=== PATIENT | male | born 1950 | race Caucasian/White ===

== ENCOUNTER 2021-02-18 09:54 | Inpatient (IN) ==
[2021-02-18] MEDS ORDERED: SODIUM CHLORIDE 0.9% 500 ML IV STA (10:45)
[2021-02-18] MEDS ORDERED: Heparin IV Adult Wt-Based Standard WITH Bolus Protocol IV STA (10:51)
--- NOTE | 2021-02-18 11:28 | XRay Report ---
XR chest 1V portable HISTORY: 70 years-old Male Chest Pain acute atypical chest pain COMPARISON: None TECHNIQUE: AP view of the chest FINDINGS: Cardiac silhouette is moderately enlarged. Asymmetric right hilar prominence. Tracheostomy cannula ov erlies the midline. Right IJ dual-lumen the thousand catheter distal tip terminates within the region of the mid to inferior SVC. Small pleural effusions. No pneumothorax. Mild left lung base opacities. Right lung base densities suggest atelectasis. Degenerative changes of the shoulders and spine. IMPRESSION: 1. Small pleural effusions with left lung base opacities suggestive of atelectasis versus pneumonia. 2. Cardiomegaly. 3. Asymmetric right hilar prominence, likely from pulmonary vasculature. 4. Right IJ dual-lumen hemodialysis catheter distal tip terminates in the region of the mid to inferi or SVC. ACT 112: Negative or not required by law. The above report was generated using voice recognition software. It may contain grammatical, syntax o r spelling errors. Electronically signed by: Rashawn Pedro M.D. 02/18/2021 11:27 AM
--- NOTE | 2021-02-18 12:06 | Emergency Department Note ---
History of Present Illness General Chief complaint: Swelling/Edema to Extremity Time Seen by Provider: 02/18/21 10:13 Source: patient Mode of arrival: EMS Limitations: no limitations History of Present Illness Provider complaint: Need for anticoagulation/DVT Maximum Pain Intensity: 5 This is a 70-year-old male who presents to the ED with a chief complaint of a DVT in the right lower extremity and need for anticoagulation. The patient was received by [facility] yesterday. The patient had ultrasound yesterday of his right leg and right arm that showed DVT today. Kendall Brock, the patient's doctor at [facility] recommended that the patient come to the ED to be admitted for IV heparinization and Coumadin treatment. The patient is a dialysis patient and he reports that there are no good studies to show that NOACs can be used in these patients. The patient has no specific complaints at this time. Home Medications Medication Instructions Recorded Confirmed Type amiodarone 100 mg FEEDING TUBE Q12H 02/18/21 02/18/21 History apixaban 2.5 mg PO BID 02/18/21 02/18/21 History aspirin 81 mg FEEDING TUBE DAILY 02/18/21 02/18/21 History atorvastatin [Lipitor] 10 mg FEEDING TUBE HS 02/18/21 02/18/21 History cholecalciferol (vitamin D3) 50 mcg FEEDING TUBE DAILY 02/18/21 02/18/21 History [Vitamin D3] diclofenac sodium 2 g TOPICAL TID 02/18/21 02/18/21 History docusate sodium 100 mg FEEDING TUBE BID 02/18/21 02/18/21 History heparin (porcine) 5,000 unit SUBCUT Q12H 02/18/21 02/18/21 History hydrocodone-acetaminophen 1 tab FEEDING TUBE BID PRN 02/18/21 02/18/21 History ipratropium-albuterol 3 ml INHALATION Q6H PRN 02/18/21 02/18/21 History ipratropium-albuterol [Combivent 1 puff INHALATION QID 02/18/21 02/18/21 History Respimat] omeprazole magnesium [Prilosec] 40 mg FEEDING TUBE BID 02/18/21 02/18/21 History pediatric multivitamin [Multiple 1 tab FEEDING TUBE DAILY 02/18/21 02/18/21 History Vitamins] sevelamer carbonate 2.4 g FEEDING TUBE TIDM 02/18/21 02/18/21 History Allergies Allergy/AdvReac Type Severity Reaction Status Date / Time levofloxacin [From Levaquin] Allergy Unknown can't Unverified 02/18/21 10:22 breath/swelling Past Med/Surg History Medical History (Updated 02/18/21 @ 13:12 by Andi Garcia DO) DVT (deep venous thrombosis) Social History Smoking Status: Unknown if ever smoked Preferred Language: Monegasque Feels Safe at Home: Yes Review of Systems A total of 10 systems reviewed and were otherwise negative Physical Exam Vital Signs Vital Signs - 24 hr 02/18/21 10:14 02/18/21 11:18 02/18/21 12:05 Temperature 36.7 C Temperature Source Oral Pulse Rate 92 H Pulse Rate [Apical] 94 H Respiratory Rate 18 22 Blood Pressure 137/50 L Blood Pressure [Left Calf] 107/60 Blood Pressure Mean 79 Blood Pressure Mean [Left Calf] 75 Pulse Oximetry 100 98 97 Oxygen Delivery Method Nasal Cannula Room Air Nasal Cannula Oxygen Flow Rate 3 3 Sepsis Recent Fever Within 48 Hours No Sepsis New/Unexplained Change in Mental Status N/A Sepsis Action Taken by Nursing No Action Required CONSTITUTIONAL/VITAL SIGNS: Reviewed / noted above. GENERAL: Non-toxic in appearance. Chronically ill-appearing. INTEGUMENTARY: Warm, dry, and [place]. HEAD: Normocephalic. EYES: without scleral icterus or trauma. ENT/OROPHARYNX: clear and moist. Tracheostomy. LYMPHADENOPATHY/NECK: Is supple without lymphadenopathy or meningismus. RESPIRATORY: Lungs diminished bilaterally.. CARDIOVASCULAR: Regular rate and rhythm. GI/ABDOMEN: Soft and nontender. Feeding tube. EXTREMITIES: Warm and well perfused. NEUROLOGICAL: Intact. Generalized weakness. PSYCHIATRIC: normal affect. MUSCULOSKELETAL: Chronically ill-appearing. Generalized weakness. TRIAGE NURSING DOCUMENTATION REVIEWED. Course Administered Medications Discontinued Medications Sodium Chloride (Nss) 500 mls @ 999 mls/hr IV .Q31M STA Stop: 02/18/21 11:15 Last Admin: 02/18/21 12:19 Dose: 999 mls/hr Documented by: [id number] Medical Decision Making Differential Diagnosis Differential includes acute coronary syndrome, myocardial infarction, CVA, TIA, anemia, infection, pneumonia, UTI, pyelonephritis, poor nutrition, dehydration, electrolyte disturbance,hypoglycemia. Medical Records Attestation: I reviewed the patient's medical records. Home Medications Current Medication List: was personally reviewed by me Laboratory Data Attestation: I reviewed the patient's lab results. Result diagrams: 02/18/21 12:12 02/18/21 12:12 Lab Results 02/18/21 02/18/21 02/18/21 Range/Units 12:12 12:12 12:12 WBC 11.85 H (4.8-10.8) K/uL RBC 2.92 L (4.7-6.1) M/uL Hgb 8.1 L (14.0-18.0) g/dL Hct 27.3 L (42-52) % MCV 93.5 (80-100) fL MCH 27.7 (25-34) pg MCHC 29.7 L (32-36) g/dL RDW Std Deviation 59.7 H (36.4-46.3) fL RDW Coeff of Aysha 17.7 H (11.5-14.5) % Plt Count 386 (130-400) K/uL MPV 8.4 (7.4-10.4) fL Immature Gran % (Auto) 0.3 % Neut % (Auto) 60.8 % Lymph % (Auto) 27.5 % [place] % (Auto) 6.5 % Eos % (Auto) 4.6 % Baso % (Auto) 0.3 % Neut # (Auto) 7.20 H (1.4-6.5) K/uL Lymph # (Auto) 3.26 (1.2-3.4) K/uL [place] # (Auto) 0.77 H (0.11-0.59) K/uL Eos # (Auto) 0.54 H (0-0.5) K/uL Baso # (Auto) 0.04 (0-0.2) K/uL Immature Gran # (Auto) 0.04 H (0.00-0.02) K/uL PT 10.2 (9.0-12.0) Seconds INR 1.0 (0.9-1.1) APTT PTT Ratio Sodium 131 L (136-145) mmol/L Potassium 4.9 (3.5-5.1) mmol/L Chloride 95 L (98-107) mmol/L Carbon Dioxide 30 (21-32) mmol/L Anion Gap 6.0 (3-11) BUN 66 H (7-18) mg/dl Creatinine 7.39 H* (0.6-1.4) mg/dl Est Cr Clr Drug Dosing 13.0 ml/min Est GFR ( Amer) 7.9 Est GFR (Non-Af Amer) 6.9 BUN/Creatinine Ratio 8.8 L (10-20) Glucose 102 H (70-99) mg/dl Calcium 10.8 H (8.5-10.1) mg/dl Total Bilirubin 0.4 (0.2-1) mg/dl AST 17 (15-37) U/L ALT 29 (12-78) U/L Alkaline Phosphatase 115 (45-117) U/L Total Protein 7.9 (6.4-8.2) gm/dl Albumin 3.3 L (3.4-5.0) gm/dl Globulin 4.6 H (2.5-4.0) gm/dl Albumin/Globulin Ratio 0.7 L (0.9-2) COVID-19 Eval Order 02/18/21 02/18/21 Range/Units 12:12 12:15 WBC (4.8-10.8) K/uL RBC (4.7-6.1) M/uL Hgb (14.0-18.0) g/dL Hct (42-52) % MCV (80-100) fL MCH (25-34) pg MCHC (32-36) g/dL RDW Std Deviation (36.4-46.3) fL RDW Coeff of Aysha (11.5-14.5) % Plt Count (130-400) K/uL MPV (7.4-10.4) fL Immature Gran % (Auto) % Neut % (Auto) % Lymph % (Auto) % [place] % (Auto) % Eos % (Auto) % Baso % (Auto) % Neut # (Auto) (1.4-6.5) K/uL Lymph # (Auto) (1.2-3.4) K/uL [place] # (Auto) (0.11-0.59) K/uL Eos # (Auto) (0-0.5) K/uL Baso # (Auto) (0-0.2) K/uL Immature Gran # (Auto) (0.00-0.02) K/uL PT (9.0-12.0) Seconds INR (0.9-1.1) APTT Cancelled PTT Ratio Cancelled Sodium (136-145) mmol/L Potassium (3.5-5.1) mmol/L Chloride (98-107) mmol/L Carbon Dioxide (21-32) mmol/L Anion Gap (3-11) BUN (7-18) mg/dl Creatinine (0.6-1.4) mg/dl Est Cr Clr Drug Dosing ml/min Est GFR ( Amer) Est GFR (Non-Af Amer) BUN/Creatinine Ratio (10-20) Glucose (70-99) mg/dl Calcium (8.5-10.1) mg/dl Total Bilirubin (0.2-1) mg/dl AST (15-37) U/L ALT (12-78) U/L Alkaline Phosphatase (45-117) U/L Total Protein (6.4-8.2) gm/dl Albumin (3.4-5.0) gm/dl Globulin (2.5-4.0) gm/dl Albumin/Globulin Ratio (0.9-2) COVID-19 Eval Order CovFluRsv at [facility] Imaging Data Radiologist's Impression: XR chest 1V portable HISTORY: 70 years-old Male Chest Pain acute atypical chest pain COMPARISON: None TECHNIQUE: AP view of the chest FINDINGS: Cardiac silhouette is moderately enlarged. Asymmetric right hilar prominence. Tracheostomy cannula overlies the midline. Right IJ dual-lumen the thousand catheter distal tip terminates within the region of the mid to inferior SVC. Small pleural effusions. No pneumothorax. Mild left lung base opacities. Right lung base densities suggest atelectasis. Degenerative changes of the shoulders and spine. IMPRESSION: 1. Small pleural effusions with left lung base opacities suggestive of atelectasis versus pneumonia. 2. Cardiomegaly. 3. Asymmetric right hilar prominence, likely from pulmonary vasculature. 4. Right IJ dual-lumen hemodialysis catheter distal tip terminates in the region of the mid to inferior SVC. ECG Data Attestation: I personally reviewed and interpreted this ECG as follows: Indication: + chest pain Rate (beats per minute): 92 Rhythm: + normal sinus ECG Intervals/blocks: + Normal QT-c ECG ST segments: no ST elevation ECG Findings: + PVCs MDM Narrative Patient presents from [facility] facility for anticoagulation as he has a DVT in the right leg and right arm. Because he is on dialysis, he was sent here for anticoagulation with heparin and Coumadin. EKG shows normal sinus rhythm. Chest x-ray reveals small bilateral pleural effusions with atelectasis/consolidations. Clinically I doubt acute pneumonia. Anemia is noted on his blood count. Likely related to his chronic renal failure EKG showed a normal sinus rhythm. The patient will be seen by the hospitalist for further anticoagulation. He was started with IV heparin. He was also given some IV fluids. Impression & Plan DVT (deep venous thrombosis) Discharge Plan Visit Data Chief Complaint: Swelling/Edema to Extremity ED Provider: Andi Garcia Discharge Problem: DVT (deep venous thrombosis) Patient Disposition: Being Evaluated by Hospitalist Forms Stand Alone Forms: [facility] Prescriptions Prescriptions: No Action docusate sodium 50 mg/5 mL Liquid 100 mg feeding tube BID RF: 0 ipratropium-albuterol 0.5 mg-3 mg(2.5 mg base)/3 mL Solution For Nebulization 3 ml INHALATION Q6H PRN (Reason: Shortness Of Breath) RF: 0 atorvastatin [Lipitor] 10 mg Tablet 10 mg feeding tube HS RF: 0 hydrocodone-acetaminophen 5-325 mg Tablet 1 tab feeding tube BID PRN (Reason: pain 4-10) RF: 0 Multiple Vitamins Tablet,Chewable 1 tab feeding tube DAILY RF: 0 aspirin 81 mg Tablet,Chewable 81 mg feeding tube DAILY RF: 0 heparin (porcine) 5,000 unit/mL Solution 5,000 unit SUBCUT Q12H RF: 0 amiodarone 100 mg Tablet 100 mg feeding tube Q12H RF: 0 cholecalciferol (vitamin D3) [Vitamin D3] 25 mcg (1,000 unit) Tablet 50 mcg feeding tube DAILY RF: 0 diclofenac sodium 1 % Gel 2 g TOPICAL TID RF: 0 Prilosec 2.5 mg Susp,Delayed Release For Recon 40 mg feeding tube BID RF: 0 sevelamer carbonate 0.8 gram Powder In Packet 2.4 g feeding tube TIDM RF: 0 apixaban 2.5 mg Tablet 2.5 mg PO BID RF: 0 Combivent Respimat 20-100 mcg/actuation Mist 1 puff INHALATION QID RF: 0 Referrals Referrals: [facility] [Primary Care Provider] -
[2021-02-18 12:22] LABS: Basophils # (auto) 0.04 K/uL (0-0.2); Basophils % (auto) 0.3 %; Eosinophils # (auto) 0.54 K/uL (0-0.5); Eosinophils % (auto) 4.6 %; Hematocrit (blood only) 27.3 % (42-52); Hemoglobin 8.1 g/dL (14.0-18.0); Immature Granulocytes # (auto) 0.04 K/uL (0.00-0.02); Immature Granulocytes % (auto) 0.3 %; Lymphocytes # (auto) 3.26 K/uL (1.2-3.4); Lymphocytes % (auto) 27.5 %; Mean Corpuscular Hemoglobin 27.7 pg (25-34); Mean Corpuscular Hgb Conc 29.7 g/dL (32-36); Mean Corpuscular Volume 93.5 fL (80-100); Mean Platelet Volume 8.4 fL (7.4-10.4); Monocytes # (auto) 0.77 K/uL (0.11-0.59); Monocytes % (auto) 6.5 %; Neutrophils % (auto) 60.8 %; Platelet Count 386 K/uL (130-400); RDW Coefficient of Variation 17.7 % (11.5-14.5); RDW Standard Deviation 59.7 fL (36.4-46.3); Red Blood Count 2.92 M/uL (4.7-6.1); White Blood Count 11.85 K/uL (4.8-10.8)
[2021-02-18 12:39] LABS: Prothrombin Time 10.2 Seconds (9.0-12.0)
[2021-02-18 12:50] LABS: Albumin Globulin Ratio 0.7 (0.9-2); Albumin Level 3.3 gm/dl (3.4-5.0); BUN Creatinine Ratio 8.8 (10-20); Bilirubin,Total 0.4 mg/dl (0.2-1); Calcium 10.8 mg/dl (8.5-10.1); Est GFR (African American) 7.9; Est GFR (Non-African American) 6.9; Globulin 4.6 gm/dl (2.5-4.0); Potassium 4.9 mmol/L (3.5-5.1); Total Protein 7.9 gm/dl (6.4-8.2)
--- NOTE | 2021-02-18 12:54 | History & Physical Report ---
Date of Service February 18, 2021 Assessment & Plan (1) DVT (deep venous thrombosis): As per HPI - Will confirm right lower extremity DVT with venous duplex - Patient reportedly had drop in HGB/HCT with Coumadin requiring transfusions and unable to verify if cause was identified, he was then on Apixaban 2.5 BID with ESRD on dialysis with new acute DVT found at [facility]. - Heparin drip with bolus Will confirm as above and should discuss case with Dr. Houser for best evidence and treatment options. (2) Weakness: Chronic following ICU admission in Nov. continue rehab - PT/OT consults placed - Continue nutritional support for muscle building - rehab and muscle strengthening Patient is able to tolerate pureed diet and will need supplementation for calories and protein through his G-tube. Nutrition consulted. Appreciate their assistance. (3) Renal failure, chronic: BUN 66, BACK HAND 7.39 today - Patient at [facility] quality engineering manager are following him there per case management- Consulted (4) Morbid obesity: - Continue supportive efforts - Tracheostomy already in place - Will need to get to strengthening point before pushing rehab for weight management (5) COPD (chronic obstructive pulmonary disease): Continue home Combivent nebs/inhalers - On 3 LNC chronic - Goal 88-92% spo2 (6) JORDAN treated with BiPAP: Settings unable to verify- obese, tracheostomy, - titrate with respiratory therapy support - Auto-pap may support while in house if unable to dial in settings (7) Hypertension: Controlled (8) Afib: Currently in NSR on Amiodarone - Rate controlled - No acute needs History of Present Illness Chief Complaint: DVT right lower extremity. Primary Care Provider: Amina [facility] 70 YOM with past medical history significant for morbid obesity, COPD, Pulmonary HTN, afib, GERD, myopathy, respiratory failure requiring a tracheostomy, MRSA pneumonia. Patient went to [facility] around November for COPD exacerbation which was diagnosed as MRSA pneumonia. He subsequently went into respiratory failure and was intubated. He also ended up in oliguric renal failure. He was transferred to [facility] rehab in [place]. He now has a tunneled right subclavian dialysis catheter and a 6.0 cuffless tracheostomy with a 4.0 insert for downsizing. He also had a right upper extremity DVT and was placed on Coumadin, he had drops in his hemoglobin requiring transfusions (unclear if source was identified) and his Coumadin was stopped. He was then placed on 2.5 mg PO BID of Apixaban. On Tuesday he was transferred to [facility]. On the the patient had a duplex study performed by [facility], that showed a right leg acute occlusive DVT of the proximal femoral vein was found and the right upper extremity DVT was negative. He was sent over to the [facility] by his PCP for admission and transition of oral anticoagulation to Coumadin via heparin drip. The hospitalist team was notified for admission. Heparin drip with bolus was started in the [facility]. He was dialyzed on Tuesday prior to going to [facility]. Awaiting call back from [facility] data manager on dialysis team. He is normovolemic appearing, hemodynamically stable, and alert and appropriate. Allergies Allergy/AdvReac Type Severity Reaction Status Date / Time levofloxacin [From Levaquin] Allergy Unknown can't Unverified 02/18/21 10:22 breath/swelling Home Medications Medication Instructions Recorded Confirmed Type amiodarone 100 mg FEEDING TUBE Q12H 02/18/21 02/18/21 History apixaban 2.5 mg PO BID 02/18/21 02/18/21 History aspirin 81 mg FEEDING TUBE DAILY 02/18/21 02/18/21 History atorvastatin [Lipitor] 10 mg FEEDING TUBE HS 02/18/21 02/18/21 History cholecalciferol (vitamin D3) 50 mcg FEEDING TUBE DAILY 02/18/21 02/18/21 History [Vitamin D3] diclofenac sodium 2 g TOPICAL TID 02/18/21 02/18/21 History docusate sodium 100 mg FEEDING TUBE BID 02/18/21 02/18/21 History heparin (porcine) 5,000 unit SUBCUT Q12H 02/18/21 02/18/21 History hydrocodone-acetaminophen 1 tab FEEDING TUBE BID PRN 02/18/21 02/18/21 History ipratropium-albuterol 3 ml INHALATION Q6H PRN 02/18/21 02/18/21 History ipratropium-albuterol [Combivent 1 puff INHALATION QID 02/18/21 02/18/21 History Respimat] omeprazole magnesium [Prilosec] 40 mg FEEDING TUBE BID 02/18/21 02/18/21 History pediatric multivitamin [Multiple 1 tab FEEDING TUBE DAILY 02/18/21 02/18/21 History Vitamins] sevelamer carbonate 2.4 g FEEDING TUBE TIDM 02/18/21 02/18/21 History Past Med/Surg History Medical History (Updated 02/18/21 @ 13:41 by SHANE Martínez) Afib COPD (chronic obstructive pulmonary disease) DVT (deep venous thrombosis) Hypertension Morbid obesity JORDAN treated with BiPAP Pulmonary hypertension Renal failure, chronic Weakness Social History Smoking Status: Former smoker Smoking End Date: 30 years ago; Hx Alcohol Use: No Preferred Language: Kinyarwanda Beliefs That Will Affect Care: None Current Living Situation: Other Other Information That Helps Us Care for You: No Feels Safe at Home: Yes Assistive Devices: Oxygen - Continuous Review of Systems Review of Systems: REVIEW OF SYSTEMS: Constitutional: No fever, sweats or chills Eyes: No diplopia, no worsening or blurred vision ENT: normal hearing, no trouble swallowing Respiratory: No cough, sputum, dyspnea on exertion Cardiovascular: No chest pain, tightness or palpitations Abdomen: No pain, nausea, vomiting, diarrhea or constipation Musculoskeletal: No joint pain, calf pain, swelling Neurologic: (+) weakness, balance problems, (-) numbness/tingling. Psychiatric: No anxiety or depression Skin: Venous discoloration to bilateral lower extremities Physical Exam Physical Exam: PHYSICAL EXAM: General: awake, alert, no apparent distress Head: Normocephalic, atraumatic ENT: PERRL, EOMI, no pharyngeal exudate, mucous membranes moist Neuro: AAO x 3, speech clear and appropriate, strength intact bilaterally 5/5 uppers, 4/5 lower extremities, sensation intact and equal all extremities and dermatomes, no pronator drift Chest: equal rise and fall of the chest, no accessory muscle use, no heaves or thrills, Clear to auscultation, on room air, Cardiac: Regular rate and rhythm, telemetry reviewed, skin warm dry, cap refill <3 seconds, peripheral pules +2 no JVD, no murmur, no JVD, no edema GI: NABS x 4 quadrants, soft, nontender to palpation, no rebound, guarding or tenderness, Gtube in place : Makes "rare occasional" urine, no pain, no CVA tenderness Extremities: Normal inspection, (+) 2 edema, venous discoloration, calfs nontender to palpation Psych: Normal mood and affect Skin: insertion sites of rt SCL and left G tube intact. Results & Data Results & Data ([facility]) Vital Signs (Past 12 Hours) Vital Signs Temp Pulse Pulse Resp BP BP Pulse Ox 02/18/21 12:05 94 H 22 107/60 97 02/18/21 11:18 98 02/18/21 10:14 36.7 C 92 H 18 137/50 L 100 Laboratory Results Abnormal lab results 02/18/21 02/18/21 02/18/21 Range/Units 12:12 12:12 12:12 WBC 11.85 H (4.8-10.8) K/uL RBC 2.92 L (4.7-6.1) M/uL Hgb 8.1 L (14.0-18.0) g/dL Hct 27.3 L (42-52) % MCHC 29.7 L (32-36) g/dL RDW Std Deviation 59.7 H (36.4-46.3) fL RDW Coeff of Aysha 17.7 H (11.5-14.5) % Neut # (Auto) 7.20 H (1.4-6.5) K/uL Eagle # (Auto) 0.77 H (0.11-0.59) K/uL Eos # (Auto) 0.54 H (0-0.5) K/uL Immature Gran # (Auto) 0.04 H (0.00-0.02) K/uL APTT < 20.0 L (21.0-31.0) Seconds Sodium 131 L (136-145) mmol/L Chloride 95 L (98-107) mmol/L BUN 66 H (7-18) mg/dl Creatinine 7.39 H* (0.6-1.4) mg/dl BUN/Creatinine Ratio 8.8 L (10-20) Glucose 102 H (70-99) mg/dl Calcium 10.8 H (8.5-10.1) mg/dl Albumin 3.3 L (3.4-5.0) gm/dl Globulin 4.6 H (2.5-4.0) gm/dl Albumin/Globulin Ratio 0.7 L (0.9-2) Diagnostic Findings XR chest 1V portable HISTORY: 70 years-old Male Chest Pain acute atypical chest pain COMPARISON: None TECHNIQUE: AP view of the chest FINDINGS: Cardiac silhouette is moderately enlarged. Asymmetric right hilar prominence. Tracheostomy cannula overlies the midline. Right IJ dual-lumen the thousand catheter distal tip terminates within the region of the mid to inferior SVC. Small pleural effusions. No pneumothorax. Mild left lung base opacities. Right lung base densities suggest atelectasis. Degenerative changes of the shoulders and spine. IMPRESSION: 1. Small pleural effusions with left lung base opacities suggestive of atelectasis versus pneumonia. 2. Cardiomegaly. 3. Asymmetric right hilar prominence, likely from pulmonary vasculature. 4. Right IJ dual-lumen hemodialysis catheter distal tip terminates in the region of the mid to inferior SVC. Medications Administered Discontinued Medications Sodium Chloride (Nss) 500 mls @ 999 mls/hr IV .Q31M STA Stop: 02/18/21 11:15 Last Admin: 02/18/21 12:19 Dose: 999 mls/hr Documented by: [id number] Home Medications amiodarone 100 mg FEEDING TUBE Q12H 02/18/21 [History Confirmed 02/18/21] apixaban 2.5 mg PO BID 02/18/21 [History Confirmed 02/18/21] aspirin 81 mg FEEDING TUBE DAILY 02/18/21 [History Confirmed 02/18/21] atorvastatin [Lipitor] 10 mg FEEDING TUBE HS 02/18/21 [History Confirmed 02/18/21] cholecalciferol (vitamin D3) [Vitamin D3] 50 mcg FEEDING TUBE DAILY 02/18/21 [History Confirmed 02/18/21] diclofenac sodium 2 g TOPICAL TID 02/18/21 [History Confirmed 02/18/21] docusate sodium 100 mg FEEDING TUBE BID 02/18/21 [History Confirmed 02/18/21] heparin (porcine) 5,000 unit SUBCUT Q12H 02/18/21 [History Confirmed 02/18/21] hydrocodone-acetaminophen 1 tab FEEDING TUBE BID PRN 02/18/21 [History Confirmed 02/18/21] ipratropium-albuterol 3 ml INHALATION Q6H PRN 02/18/21 [History Confirmed 02/18/21] ipratropium-albuterol [Combivent Respimat] 1 puff INHALATION QID 02/18/21 [History Confirmed 02/18/21] omeprazole magnesium [Prilosec] 40 mg FEEDING TUBE BID 02/18/21 [History Confirmed 02/18/21] pediatric multivitamin [Multiple Vitamins] 1 tab FEEDING TUBE DAILY 02/18/21 [History Confirmed 02/18/21] sevelamer carbonate 2.4 g FEEDING TUBE TIDM 02/18/21 [History Confirmed 02/18/21] Active Medications Heparin Sodium/Dextrose (Heparin Sodium/Dextrose) 25,000 units in 500 mls @ 0.02 mls/hr IV .Q24H [facility]; Protocol Stop: 03/20/21 10:59 ECG Additional Comments: Normal sinus rhythm Low voltage QRS Borderline ECG No previous ECGs available. Code Status & VTE Plan Code Status CODE: FULL VTE: Heparin drip VTE Prophylaxis Plan VTE Prophylaxis will be ordered: Yes Supervising Physician Co-Signing Physician Notes Patient was seen and examined independently I discussed the case with Doroteo LYNN I reviewed pertinent past medical social family history and also the plan of care and agree with the plan of care. Patient recently transferred to [facility] for medically further extremity DVT with history of renal failure recommendations will be for heparin with transition to Coumadin however will confer with coagulation specialist Dr. Houser with further recommendations once he is stabilized on his heparin Patient is in no significant distress is difficult to tell clinical signs of his DVT. Gentleman with morbid obesity BMI 41 he has a trach in place which is currently capped during the day he does have some baseline breathlessness Systemically therapeutic anticoagulate and confer with Dr Houser regarding reviewed anticoagulation on dialysis Any exceptions will be noted below PG Care Time/CCT Total # of Minutes Spent Total Time Spent with Patient: Total time spent is greater than 50% in coordination of care (as documented) at patient's floor/unit and/or counseling patient: Coding Level of Care Code 55931 Initial Inpt Care Lvl 3 Diagnoses DVT (deep venous thrombosis) I82.621 Affected thrombotic vein of extremity: unspecified vein of extremity Chronicity: acute DVT location: upper extremity Laterality: right Weakness R53.1 Renal failure, chronic N18.5 Chronic kidney disease stage: stage 5 Morbid obesity E66.01 COPD (chronic obstructive pulmonary disease) J44.9 COPD type: unspecified COPD JORDAN treated with BiPAP G47.33 Hypertension I10 Hypertension type: unspecified Afib I48.0 Atrial fibrillation type: paroxysmal (1) DVT (deep venous thrombosis) Affected thrombotic vein of extremity: unspecified vein of extremity Chronicity: acute DVT location: upper extremity Laterality: right Qualified Code(s): I82.621 - Acute embolism and thrombosis of deep veins of right upper extremity (2) Afib Atrial fibrillation type: paroxysmal Qualified Code(s): I48.0 - Paroxysmal atrial fibrillation (3) COPD (chronic obstructive pulmonary disease) COPD type: unspecified COPD Qualified Code(s): J44.9 - Chronic obstructive pulmonary disease, unspecified (4) Renal failure, chronic Chronic kidney disease stage: stage 5 Qualified Code(s): N18.5 - Chronic kidney disease, stage 5 (5) Hypertension Hypertension type: unspecified Qualified Code(s): I10 - Essential (primary) hypertension
[2021-02-18 13:17] LABS: Partial Thromboplastin Ratio 0.8; Partial Thromboplastin Time < 20.0 Seconds (21.0-31.0)
[2021-02-18] MEDS ORDERED: HEPARIN SOD (PORCINE) 1000 UNIT/ML ONE (13:29)
[2021-02-18] MEDS: HEPARIN SODIUM/DEXTROSE 25,000 UNITS/500 ML BAG IV SCH (13:31)
--- NOTE | 2021-02-18 13:55 | Electrocardiogram Report ---
Test Reason : Blood Pressure : / mmHG Vent. Rate : 092 BPM Atrial Rate : 092 BPM P-R Int : 178 ms QRS Dur : 086 ms QT Int : 346 ms P-R-T Axes : 044 -03 039 degrees QTc Int : 427 ms Poor data quality, interpretation may be adversely affected Normal sinus rhythm Low voltage QRS Borderline ECG No previous ECGs available Confirmed by Alexandre Gaitan ([id number]) on 02/18/2021 1:54:55 PM Referred By: [facility] Confirmed By:David Gaitan
[2021-02-18 14:07] LABS: Influenza A virus by PCR Negative (Neg); Influenza B virus by PCR Negative (Neg); RSV by PCR Negative (Neg); SARS CoV2 RNA(COVID-19) InHosp NEGATIVE (Negative)
--- NOTE | 2021-02-18 15:22 | Ultrasound Report ---
US venous doppler LE BI CLINICAL HISTORY: right lower extremity DVT-leg swelling. Possible DVT COMPARISON STUDY: No previous studies for comparison. FINDINGS: Grayscale, color-flow, Doppler spectral waveform analysis was performed. Within the left leg, no thrombus is visualized within the common femoral superficial femoral or popli teal veins. The proximal trifurcation veins of the calf appear patent. Within the right leg, no thrombus is visualized within the right common femoral vein. There is nonocc lusive thrombus within the right superficial femoral vein. There is no thrombus within the popliteal vein. Color flow evaluation of the calf veins reveals broken flow within the posterior tibial and per wrgiht veins. IMPRESSION: 1. No evidence of left lower extremity DVT 2. Nonocclusive right superficial femoral vein DVT possibly subacute ACT 112: Negative or not required by law. Electronically signed by: Jono Madera M.D. 02/18/2021 3:20 PM
[2021-02-18] MEDS ORDERED: HYDROCODONE/ACETAMOPHEN 5/325MG TAB PO PRN (16:04)
[2021-02-18] MEDS ORDERED: ALBUT/IPRATROP 3MG/0.5MG NEB 3 ML VIAL INH PRN (16:04)
[2021-02-18] MEDS: DICLOFENAC SOD 1% GEL 100 GM TUBE EXT SCH ×2 (16:51→21:32)
[2021-02-18] MEDS: AMIODARONE 200 MG TAB PO SCH (16:52)
[2021-02-18] MEDS: SEVELAMER HCL 800 MG TABLET PO SCH (16:53)
[2021-02-18] MEDS ORDERED: ALBUTEROL HFA 8 GM INHALER INH SCH (17:00)
[2021-02-18] MEDS ORDERED: IPRATROPIUM BROMIDE HFA INHALER INH SCH (17:00)
[2021-02-18 20:36] LABS: Partial Thromboplastin Ratio 2.2
[2021-02-18] MEDS: DOCUSATE SODIUM SYRUP 100 MG/10 ML UDC GT SCH (20:40)
[2021-02-18] MEDS: ALBUTEROL HFA 8 GM INHALER INH SCH (20:45)
[2021-02-18] MEDS: IPRATROPIUM BROMIDE HFA INHALER INH SCH (20:45)
[2021-02-18 20:52] LABS: Partial Thromboplastin Time 58.8 Seconds (21.0-31.0)
[2021-02-18] MEDS ORDERED: ATORVASTATIN 10 MG TAB GT SCH (21:00)
[2021-02-18] MEDS: LANSOPRAZOLE 30 MG SOLTAB GT SCH (21:21)
[2021-02-18 23:08] LABS: Basophils # (auto) 0.05 K/uL (0-0.2); Basophils % (auto) 0.4 %; Eosinophils # (auto) 0.72 K/uL (0-0.5); Eosinophils % (auto) 5.9 %; Hematocrit (blood only) 25.9 % (42-52); Hemoglobin 7.5 g/dL (14.0-18.0); Immature Granulocytes # (auto) 0.07 K/uL (0.00-0.02); Immature Granulocytes % (auto) 0.6 %; Lymphocytes # (auto) 4.06 K/uL (1.2-3.4); Lymphocytes % (auto) 33.2 %; Mean Corpuscular Hemoglobin 27.2 pg (25-34); Mean Corpuscular Volume 93.8 fL (80-100); Mean Platelet Volume 8.7 fL (7.4-10.4); Monocytes % (auto) 6.5 %; Neutrophils # (auto) 6.52 K/uL (1.4-6.5); Neutrophils % (auto) 53.4 %; Platelet Count 375 K/uL (130-400); RDW Coefficient of Variation 17.8 % (11.5-14.5); RDW Standard Deviation 60.6 fL (36.4-46.3); Red Blood Count 2.76 M/uL (4.7-6.1); White Blood Count 12.22 K/uL (4.8-10.8)
[2021-02-18 23:28] LABS: Partial Thromboplastin Ratio 2.2
[2021-02-18 23:32] LABS: Partial Thromboplastin Time 58.8 Seconds (21.0-31.0)
[2021-02-18 23:52] LABS: Basophilic Stippling 1+; Hypochromasia Present; Polychromasia 1+; Stomatocytes 1+
[2021-02-19 02:24] LABS: Hematocrit (blood only) 25.4 % (42-52); Hemoglobin 7.5 g/dL (14.0-18.0)
[2021-02-19] MEDS: AMIODARONE 200 MG TAB PO SCH ×2 (04:23→17:00)
[2021-02-19] MEDS: HEPARIN SODIUM/DEXTROSE 25,000 UNITS/500 ML BAG IV SCH ×2 (06:39→22:22)
[2021-02-19 07:11] LABS: Basophils # (auto) 0.03 K/uL (0-0.2); Basophils % (auto) 0.3 %; Eosinophils # (auto) 0.71 K/uL (0-0.5); Eosinophils % (auto) 6.4 %; Hematocrit (blood only) 24.8 % (42-52); Hemoglobin 7.3 g/dL (14.0-18.0); Immature Granulocytes # (auto) 0.05 K/uL (0.00-0.02); Immature Granulocytes % (auto) 0.5 %; Lymphocytes # (auto) 3.52 K/uL (1.2-3.4); Lymphocytes % (auto) 31.8 %; Mean Corpuscular Hemoglobin 27.2 pg (25-34); Mean Corpuscular Hgb Conc 29.4 g/dL (32-36); Mean Corpuscular Volume 92.5 fL (80-100); Mean Platelet Volume 8.7 fL (7.4-10.4); Monocytes # (auto) 0.77 K/uL (0.11-0.59); Neutrophils # (auto) 5.98 K/uL (1.4-6.5); Platelet Count 403 K/uL (130-400); RDW Coefficient of Variation 17.9 % (11.5-14.5); RDW Standard Deviation 60.3 fL (36.4-46.3); Red Blood Count 2.68 M/uL (4.7-6.1); White Blood Count 11.06 K/uL (4.8-10.8)
[2021-02-19 07:43] LABS: BUN Creatinine Ratio 8.5 (10-20); Calcium 10.2 mg/dl (8.5-10.1); Creatinine Clr Calc Pharmacy 11.3 ml/min; Magnesium 3.8 mg/dl (1.8-2.4); Phosphorus 3.6 mg/dl (2.5-4.9); Potassium 4.4 mmol/L (3.5-5.1)
[2021-02-19] MEDS: IPRATROPIUM BROMIDE HFA INHALER INH SCH ×4 (07:55→19:24)
[2021-02-19] MEDS: ALBUTEROL HFA 8 GM INHALER INH SCH ×4 (07:55→19:25)
[2021-02-19] MEDS: DICLOFENAC SOD 1% GEL 100 GM TUBE EXT SCH ×5 (08:19→21:55)
[2021-02-19] MEDS: DOCUSATE SODIUM SYRUP 100 MG/10 ML UDC GT SCH (08:19)
[2021-02-19] MEDS: LANSOPRAZOLE 30 MG SOLTAB GT SCH (08:19)
[2021-02-19] MEDS: SEVELAMER HCL 800 MG TABLET PO SCH ×3 (08:19→16:42)
[2021-02-19 08:40] LABS: Basophilic Stippling 1+; Hypochromasia Present; Polychromasia 1+; Stomatocytes 1+
[2021-02-19] MEDS ORDERED: ASPIRIN 81 MG CHEW GT SCH (09:00)
[2021-02-19] MEDS ORDERED: CHOLECALCIFEROL 1,000 UNITS 25 MCG TAB GT SCH (09:00)
[2021-02-19] MEDS ORDERED: SODIUM CHLORIDE 0.9% 1000ML 1,000 ML IV PRN (09:02)
[2021-02-19] MEDS ORDERED: EPOETIN ALFA 10,000 UNITS/ML VIAL IV ONE (09:02)
[2021-02-19] MEDS ORDERED: HEPARIN SOD (PORCINE) 1000 UNIT/ML IV ONE (09:02)
[2021-02-19] MEDS: CHOLECALCIFEROL 1,000 UNITS 25 MCG TAB PO SCH (09:20)
[2021-02-19] MEDS: ASPIRIN 81 MG CHEW PO SCH (09:20)
[2021-02-19] MEDS: DOCUSATE SODIUM SYRUP 100 MG/10 ML UDC PO SCH ×2 (09:20→20:15)
[2021-02-19] MEDS: LANSOPRAZOLE 30 MG SOLTAB PO SCH ×2 (09:20→20:13)
[2021-02-19] MEDS ORDERED: IRON SUCROSE 100 MG in SYRINGE 0 ML IV ONE (09:30)
[2021-02-19] MEDS ORDERED: HEPARIN SOD (PORCINE) 1000 UNIT/ML IV SCH (10:00)
--- NOTE | 2021-02-19 10:05 | Consultation Report ---
DATE OF CONSULTATION: 02/19/2021 REASON FOR CONSULT: Dialysis patient admitted with DVT. HISTORY OF PRESENT ILLNESS: The patient is a 70-year-old male, significant for morbid obesity, COPD, pulmonary hypertension, AFib, GERD, myopathy with recent complicated course of health events. He had respiratory failure with prolonged intubation followed by tracheostomy, MRSA pneumonia. He has been in and out of hospitals and rehabs and select rehab places for the last 2 months now. During the course of this, he developed renal failure and has required dialysis. [facility] [place] Because of significant lower extremity edema, more in the right, he underwent a duplex for DVT, which came back positive. After that, the patient was transferred to the hospital for continuous heparin drip, which he is still getting. He gets dialysis Tuesday, Tuesday, Tuesday, but we did not do yesterday because of timing/scheduling issue. At this point, he appears to be pretty stable volume gallo as well as electrolytes. He has not had renal recovery. It is not entirely clear whether he had preexisting chronic kidney disease or this is entirely acute renal failure, but he did not see a can reconditioner before. ALLERGIES: LEVOFLOXACIN. HOME MEDICATIONS: List was reviewed in detail. PAST MEDICAL AND SURGICAL HISTORY: AFib, COPD, DVT, hypertension, morbid obesity, obstructive sleep apnea, pulmonary hypertension, chronic renal failure. SOCIAL HISTORY: Former smoker, no alcohol. He uses oxygen continuous. REVIEW OF SYSTEMS: As detailed in HPI. However, there was not much acute symptoms going on at this time other than significant generalized weakness following prolonged illness for the last 2 months. FAMILY HISTORY: Negative for renal disease or dialysis. PHYSICAL EXAMINATION: GENERAL: Awake, alert, no overt respiratory distress. HEENT: Normocephalic, atraumatic. NECK: Supple, short neck, cannot assess JVD. Mucous membrane is moist. He does have a tracheostomy. CHEST: Bilateral decreased breath sounds, poor inspiratory effort. No overt respiratory distress. He is on 3 liters oxygen. CARDIOVASCULAR: Regular rate and rhythm. Does have chronic appearing edema with skin changes. No murmur. ABDOMEN: Obese, soft, nontender. EXTREMITIES: Shows edema which appears to be very chronic with chronic skin changes. PSYCHIATRIC: Normal mood and affect. VITAL SIGNS: Blood pressure 121/74, pulse 74, respiratory rate 18, temperature 36.9, 98% on 3 liter nasal cannula. LABORATORY TESTS: From this morning shows hemoglobin is 7.3, platelet count is 403. Sodium 129, potassium 4.4, BUN 71, creatinine 8.25, magnesium 3.8, phosphorus 3.6. Iron is 29. Chest x-ray shows small pleural effusion, cardiomegaly and some prominent pulmonary vasculature. Duplex shows right superficial femoral vein DVT, possibly subacute. ASSESSMENT AND PLAN: A 70-year-old male who recently had prolonged hospitalization with respiratory failure, MRSA pneumonia, intubation and tracheostomy and developed renal failure during the course of the illness requiring dialysis. End-stage renal disease: We will do dialysis today and then the next dialysis will be on Tuesday if he is still here. He does not have any major electrolyte problem. Serum sodium is slightly low, signifying some volume congestion. We will do dialysis for 4 hours and try to take 3 kilo off. He is already on heparin drip, so we will not be using heparin during dialysis. Does have significant anemia, which is not new. He will get Procrit 10,000 units as well as Venofer 100 mg. DVT--continue current Mx. Given ESRD and Also obesity getting appropriate dose with newer Anti Coags is hard. MTDD
[2021-02-19 10:55] LABS: Hepatitis B Surface Ab Quant < 3.10 mIU/mL (>or=10mIU/mL Immune); Hepatitis B Surface Antibody Non-Immune
[2021-02-19 11:04] LABS: Hepatitis B Surf Ag Rflx Conf Neg (Neg)
--- NOTE | 2021-02-19 12:28 | Hospitalist Progress Note ---
Date of Service February 19, 2021 Assessment & Plan (1) DVT (deep venous thrombosis): With a history of right upper extremity DVT during recent prolonged hospitalization which is now resolved Now with right lower extremity nonocclusive thrombus within the SFV - Patient reportedly had drop in HGB/HCT with Coumadin requiring transfusions and unable to verify if cause was identified, he was then on Apixaban 2.5 BID with ESRD on dialysis with new acute DVT found at [facility]. He is a dialysis patient and is unclear if the apixaban at that dose would be sufficient treatment -Continue Heparin drip with bolus and will start Coumadin 7.5 mg p.o. once daily x4 days Follow daily PT/PTT/INR Discussed care with anticoagulation expert Dr. Houser who agrees with this plan (2) Weakness: Chronic following prolonged ICU admission in Nov. X2 months - PT/OT consults placed - Continue nutritional support for muscle building - rehab and muscle strengthening Patient is able to tolerate pureed diet and will need supplementation for calories and protein through his G-tube. Nutrition consulted. Appreciate their assistance. (3) ESRD (end stage renal disease) on dialysis: Started on hemodialysis during recent prolonged hospitalization Is on a Tuesday schedule Missed dialysis on Tuesday, will get dialysis today and then again on Tuesday, then go back to Tuesday schedule next week - Patient at [facility]- [facility] political science instructor are following him there per case management- Consulted (4) Anemia: Hemoglobin significant very low at 7.3 which is fairly stable from admission at 7.5 No evidence of bleeding from anywhere, he denies any melena or hematochezia. 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-this was performed at [facility] -He could have had a stress ulcer given the recent prolonged ICU stay but there is no evidence of melena or acute GI bleeding -Provided with Venofer and Epogen today with dialysis -Follow CBC in the morning -Continue PPI (5) COPD (chronic obstructive pulmonary disease): Continue home Combivent nebs/inhalers, no acute issues - On 3 LNC chronic - Goal 88-92% spo2 -With tracheostomy in place, continue trach care (6) JORDAN treated with BiPAP: Settings unable to verify- obese, tracheostomy, - titrate with respiratory therapy support - Auto-pap may support while in house if unable to dial in settings (7) Afib: Currently in NSR on Amiodarone Patient was unaware of this diagnosis, but did previously follow with a profile grinder technician prior to his hospitalization-Dr. 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 As long history of numbness in the feet for years. He denies chest pains or increased shortness of breath. He remains very weak. He is eating by mouth recently placed on a pured diet. No bleeding from anywhere Review of Systems Review of Systems: All systems reviewed & are unremarkable except as noted in HPI & below Physical Exam Constitutional: WD/WN, vitals as above + obese Eyes: + anicteric sclerae ENMT: Mouth: no oropharynx abnormality Neck: trachea midline, no thyromegaly Respiratory: normal respiratory effort, lungs clear to auscultation Cardiovascular: Rate/Rhythm: regular rate and regular rhythm Heart Sounds: no murmur Extremities: + edema (Bilateral 1+ pitting edema, ashen stringer color to the legs, ichthyosis) Chest (Breasts): Chest: normal inspection of chest Gastrointestinal (Abdomen): normal bowel sounds, soft, nontender, no hepatosplenomegaly Inspection/Auscultation: + abdomen abnormal to inspection (With PEG tube in place) Musculoskeletal: Extremities: extremities normal to inspection; no cyanosis and no clubbing Skin: no rashes, warm and dry Neurologic: moves all extremities and awake; no focal motor deficits Psychiatric: A+Ox3, euthymic affect Lymphatic: no lymphedema Results & Data Results & Data ([facility]) Vital Signs (Past 12 Hours) Vital Signs Temp Pulse Pulse Pulse Resp BP BP 02/19/21 12:20 85 116/66 02/19/21 12:00 79 104/60 02/19/21 11:40 80 116/60 02/19/21 11:20 82 110/63 02/19/21 11:00 76 93/46 L 02/19/21 10:40 80 92/51 L 02/19/21 10:25 66 101/46 L 02/19/21 10:20 81 75/49 L 02/19/21 10:00 68 101/53 L 02/19/21 09:47 36.7 C 85 85 138/64 02/19/21 09:23 84 02/19/21 07:49 74 18 02/19/21 07:22 36.9 C 81 20 121/74 02/19/21 04:57 88 02/19/21 03:40 36.7 C 87 18 110/64 Pulse Ox 02/19/21 12:20 02/19/21 12:00 02/19/21 11:40 02/19/21 11:20 02/19/21 11:00 02/19/21 10:40 02/19/21 10:25 02/19/21 10:20 02/19/21 10:00 02/19/21 09:47 02/19/21 09:23 02/19/21 07:49 98 02/19/21 07:22 99 02/19/21 04:57 02/19/21 03:40 90 Laboratory Results 02/19/21 02/19/21 02/19/21 Range/Units Unknown 20:13 16:34 WBC (4.8-10.8) K/uL RBC (4.7-6.1) M/uL Hgb (14.0-18.0) g/dL Hct (42-52) % MCV (80-100) fL MCH (25-34) pg MCHC (32-36) g/dL RDW Std Deviation (36.4-46.3) fL RDW Coeff of Aysha (11.5-14.5) % Plt Count (130-400) K/uL MPV (7.4-10.4) fL Immature Gran % (Auto) % Neut % (Auto) % Lymph % (Auto) % Stanton % (Auto) % Eos % (Auto) % Baso % (Auto) % Neut # (Auto) (1.4-6.5) K/uL Lymph # (Auto) (1.2-3.4) K/uL Stanton # (Auto) (0.11-0.59) K/uL Eos # (Auto) (0-0.5) K/uL Baso # (Auto) (0-0.2) K/uL Immature Gran # (Auto) (0.00-0.02) K/uL Polychromasia Hypochromasia Basophilic Stippling Stomatocytes APTT (21.0-31.0) Seconds PTT Ratio Sodium (136-145) mmol/L Potassium (3.5-5.1) mmol/L Chloride (98-107) mmol/L Carbon Dioxide (21-32) mmol/L Anion Gap (3-11) BUN (7-18) mg/dl Creatinine (0.6-1.4) mg/dl Est Cr Clr Drug Dosing ml/min Est GFR ( Amer) Est GFR (Non-Af Amer) BUN/Creatinine Ratio (10-20) Glucose (70-99) mg/dl POC Glucose 111 H 122 H (70-99) mg/dl Calcium (8.5-10.1) mg/dl Phosphorus (2.5-4.9) mg/dl Magnesium (1.8-2.4) mg/dl Iron (35-175) mcg/dl Stool Occult Bld Scrn Negative (Negative) Hep Bs Antigen (Neg) Hep Bs Antibody Hep Bs Antibody, Quant (>or=10mIU/mL Immune) mIU/mL 02/19/21 02/19/21 02/19/21 Range/Units 14:22 07:21 06:11 WBC (4.8-10.8) K/uL RBC (4.7-6.1) M/uL Hgb (14.0-18.0) g/dL Hct (42-52) % MCV (80-100) fL MCH (25-34) pg MCHC (32-36) g/dL RDW Std Deviation (36.4-46.3) fL RDW Coeff of Aysha (11.5-14.5) % Plt Count (130-400) K/uL MPV (7.4-10.4) fL Immature Gran % (Auto) % Neut % (Auto) % Lymph % (Auto) % Stanton % (Auto) % Eos % (Auto) % Baso % (Auto) % Neut # (Auto) (1.4-6.5) K/uL Lymph # (Auto) (1.2-3.4) K/uL Stanton # (Auto) (0.11-0.59) K/uL Eos # (Auto) (0-0.5) K/uL Baso # (Auto) (0-0.2) K/uL Immature Gran # (Auto) (0.00-0.02) K/uL Polychromasia Hypochromasia Basophilic Stippling Stomatocytes APTT 52.0 H* (21.0-31.0) Seconds PTT Ratio 2.0 Sodium (136-145) mmol/L Potassium (3.5-5.1) mmol/L Chloride (98-107) mmol/L Carbon Dioxide (21-32) mmol/L Anion Gap (3-11) BUN (7-18) mg/dl Creatinine (0.6-1.4) mg/dl Est Cr Clr Drug Dosing ml/min Est GFR ( Amer) Est GFR (Non-Af Amer) BUN/Creatinine Ratio (10-20) Glucose (70-99) mg/dl POC Glucose 102 H 111 H (70-99) mg/dl Calcium (8.5-10.1) mg/dl Phosphorus (2.5-4.9) mg/dl Magnesium (1.8-2.4) mg/dl Iron (35-175) mcg/dl Stool Occult Bld Scrn (Negative) Hep Bs Antigen (Neg) Hep Bs Antibody Hep Bs Antibody, Quant (>or=10mIU/mL Immune) mIU/mL 02/19/21 02/19/21 02/19/21 Range/Units 06:11 06:11 04:05 WBC 11.06 H (4.8-10.8) K/uL RBC 2.68 L (4.7-6.1) M/uL Hgb 7.3 L (14.0-18.0) g/dL Hct 24.8 L (42-52) % MCV 92.5 (80-100) fL MCH 27.2 (25-34) pg MCHC 29.4 L (32-36) g/dL RDW Std Deviation 60.3 H (36.4-46.3) fL RDW Coeff of Aysha 17.9 H (11.5-14.5) % Plt Count 403 H (130-400) K/uL MPV 8.7 (7.4-10.4) fL Immature Gran % (Auto) 0.5 % Neut % (Auto) 54.0 % Lymph % (Auto) 31.8 % Stanton % (Auto) 7.0 % Eos % (Auto) 6.4 % Baso % (Auto) 0.3 % Neut # (Auto) 5.98 (1.4-6.5) K/uL Lymph # (Auto) 3.52 H (1.2-3.4) K/uL Stanton # (Auto) 0.77 H (0.11-0.59) K/uL Eos # (Auto) 0.71 H (0-0.5) K/uL Baso # (Auto) 0.03 (0-0.2) K/uL Immature Gran # (Auto) 0.05 H (0.00-0.02) K/uL Polychromasia 1+ Hypochromasia Present Basophilic Stippling 1+ Stomatocytes 1+ APTT (21.0-31.0) Seconds PTT Ratio Sodium 129 L (136-145) mmol/L Potassium 4.4 (3.5-5.1) mmol/L Chloride 94 L (98-107) mmol/L Carbon Dioxide 28 (21-32) mmol/L Anion Gap 7.0 (3-11) BUN 71 H (7-18) mg/dl Creatinine 8.25 H* D (0.6-1.4) mg/dl Est Cr Clr Drug Dosing 11.3 ml/min Est GFR ( Amer) 7.0 Est GFR (Non-Af Amer) 6.0 BUN/Creatinine Ratio 8.5 L (10-20) Glucose 91 (70-99) mg/dl POC Glucose 102 H (70-99) mg/dl Calcium 10.2 H (8.5-10.1) mg/dl Phosphorus 3.6 (2.5-4.9) mg/dl Magnesium 3.8 H (1.8-2.4) mg/dl Iron 29 L (35-175) mcg/dl Stool Occult Bld Scrn (Negative) Hep Bs Antigen (Neg) Hep Bs Antibody Hep Bs Antibody, Quant (>or=10mIU/mL Immune) mIU/mL 02/19/21 02/18/21 02/18/21 Range/Units 02:15 22:35 22:35 WBC 12.22 H (4.8-10.8) K/uL RBC 2.76 L (4.7-6.1) M/uL Hgb 7.5 L 7.5 L (14.0-18.0) g/dL Hct 25.4 L 25.9 L (42-52) % MCV 93.8 (80-100) fL MCH 27.2 (25-34) pg MCHC 29.0 L (32-36) g/dL RDW Std Deviation 60.6 H (36.4-46.3) fL RDW Coeff of Aysha 17.8 H (11.5-14.5) % Plt Count 375 (130-400) K/uL MPV 8.7 (7.4-10.4) fL Immature Gran % (Auto) 0.6 % Neut % (Auto) 53.4 % Lymph % (Auto) 33.2 % Stanton % (Auto) 6.5 % Eos % (Auto) 5.9 % Baso % (Auto) 0.4 % Neut # (Auto) 6.52 H (1.4-6.5) K/uL Lymph # (Auto) 4.06 H (1.2-3.4) K/uL Stanton # (Auto) 0.80 H (0.11-0.59) K/uL Eos # (Auto) 0.72 H (0-0.5) K/uL Baso # (Auto) 0.05 (0-0.2) K/uL Immature Gran # (Auto) 0.07 H (0.00-0.02) K/uL Polychromasia 1+ Hypochromasia Present Basophilic Stippling 1+ Stomatocytes 1+ APTT 58.8 H* (21.0-31.0) Seconds PTT Ratio 2.2 Sodium (136-145) mmol/L Potassium (3.5-5.1) mmol/L Chloride (98-107) mmol/L Carbon Dioxide (21-32) mmol/L Anion Gap (3-11) BUN (7-18) mg/dl Creatinine (0.6-1.4) mg/dl Est Cr Clr Drug Dosing ml/min Est GFR ( Amer) Est GFR (Non-Af Amer) BUN/Creatinine Ratio (10-20) Glucose (70-99) mg/dl POC Glucose (70-99) mg/dl Calcium (8.5-10.1) mg/dl Phosphorus (2.5-4.9) mg/dl Magnesium (1.8-2.4) mg/dl Iron (35-175) mcg/dl Stool Occult Bld Scrn (Negative) Hep Bs Antigen (Neg) Hep Bs Antibody Hep Bs Antibody, Quant (>or=10mIU/mL Immune) mIU/mL 02/18/21 02/18/21 Range/Units 19:48 12:12 WBC (4.8-10.8) K/uL RBC (4.7-6.1) M/uL Hgb (14.0-18.0) g/dL Hct (42-52) % MCV (80-100) fL MCH (25-34) pg MCHC (32-36) g/dL RDW Std Deviation (36.4-46.3) fL RDW Coeff of Aysha (11.5-14.5) % Plt Count (130-400) K/uL MPV (7.4-10.4) fL Immature Gran % (Auto) % Neut % (Auto) % Lymph % (Auto) % Stanton % (Auto) % Eos % (Auto) % Baso % (Auto) % Neut # (Auto) (1.4-6.5) K/uL Lymph # (Auto) (1.2-3.4) K/uL Stanton # (Auto) (0.11-0.59) K/uL Eos # (Auto) (0-0.5) K/uL Baso # (Auto) (0-0.2) K/uL Immature Gran # (Auto) (0.00-0.02) K/uL Polychromasia Hypochromasia Basophilic Stippling Stomatocytes APTT 58.8 H* (21.0-31.0) Seconds PTT Ratio 2.2 Sodium (136-145) mmol/L Potassium (3.5-5.1) mmol/L Chloride (98-107) mmol/L Carbon Dioxide (21-32) mmol/L Anion Gap (3-11) BUN (7-18) mg/dl Creatinine (0.6-1.4) mg/dl Est Cr Clr Drug Dosing ml/min Est GFR ( Amer) Est GFR (Non-Af Amer) BUN/Creatinine Ratio (10-20) Glucose (70-99) mg/dl POC Glucose (70-99) mg/dl Calcium (8.5-10.1) mg/dl Phosphorus (2.5-4.9) mg/dl Magnesium (1.8-2.4) mg/dl Iron (35-175) mcg/dl Stool Occult Bld Scrn (Negative) Hep Bs Antigen Neg (Neg) Hep Bs Antibody Non-Immune Hep Bs Antibody, Quant < 3.10 L (>or=10mIU/mL Immune) mIU/mL PG Care Time/CCT Total # of Minutes Spent Total Time Spent with Patient: Total time spent is greater than 50% in coordination of care (as documented) at patient's floor/unit and/or counseling patient: Coding Level of Care Code 82658 Subseq Hosp Care Lvl 3 Diagnoses DVT (deep venous thrombosis) I82.621 Affected thrombotic vein of extremity: unspecified vein of extremity Chronicity: acute DVT location: upper extremity Laterality: right Weakness R53.1 ESRD (end stage renal disease) on dialysis N18.6; Z99.2 Anemia D64.9 COPD (chronic obstructive pulmonary disease) J44.9 COPD type: unspecified COPD JORDAN treated with BiPAP G47.33 Afib I48.0 Atrial fibrillation type: paroxysmal Chronic respiratory failure with hypoxia J96.11 Neuropathy G62.9 Ryan esophagus K22.70 Constipation K59.00 Morbid obesity E66.01 (1) DVT (deep venous thrombosis) Affected thrombotic vein of extremity: unspecified vein of extremity Chronicity: acute DVT location: upper extremity Laterality: right Qualified Code(s): I82.621 - Acute embolism and thrombosis of deep veins of right upper extremity (2) Afib Atrial fibrillation type: paroxysmal Qualified Code(s): I48.0 - Paroxysmal atrial fibrillation (3) COPD (chronic obstructive pulmonary disease) COPD type: unspecified COPD Qualified Code(s): J44.9 - Chronic obstructive pulmonary disease, unspecified
[2021-02-19] MEDS: WARFARIN SOD 7.5 MG TAB PO SCH (16:42)
[2021-02-19] MEDS: ATORVASTATIN 10 MG TAB PO SCH (20:14)
[2021-02-20] MEDS: AMIODARONE 200 MG TAB PO SCH ×2 (05:05→16:36)
[2021-02-20] MEDS: IPRATROPIUM BROMIDE HFA INHALER INH SCH ×4 (07:48→19:47)
[2021-02-20] MEDS: ALBUTEROL HFA 8 GM INHALER INH SCH ×4 (07:48→19:47)
[2021-02-20 08:01] LABS: Hemoglobin 7.5 g/dL (14.0-18.0); Mean Corpuscular Hemoglobin 27.6 pg (25-34); Mean Corpuscular Hgb Conc 28.8 g/dL (32-36); Mean Corpuscular Volume 95.6 fL (80-100); Mean Platelet Volume 8.6 fL (7.4-10.4); Platelet Count 368 K/uL (130-400); RDW Coefficient of Variation 18.5 % (11.5-14.5); RDW Standard Deviation 63.2 fL (36.4-46.3); Red Blood Count 2.72 M/uL (4.7-6.1); White Blood Count 10.24 K/uL (4.8-10.8)
[2021-02-20 08:21] LABS: Partial Thromboplastin Ratio 1.9; Prothrombin Time 10.6 Seconds (9.0-12.0)
[2021-02-20 08:45] LABS: Basophilic Stippling 1+; Basophils # (auto) 0.04 K/uL (0-0.2); Basophils % (auto) 0.4 %; Eosinophils # (auto) 0.64 K/uL (0-0.5); Eosinophils % (auto) 6.3 %; Immature Granulocytes # (auto) 0.04 K/uL (0.00-0.02); Immature Granulocytes % (auto) 0.4 %; Lymphocytes # (auto) 2.77 K/uL (1.2-3.4); Lymphocytes % (auto) 27.1 %; Monocytes # (auto) 0.89 K/uL (0.11-0.59); Monocytes % (auto) 8.7 %; Neutrophils # (auto) 5.86 K/uL (1.4-6.5); Neutrophils % (auto) 57.1 %; Polychromasia 1+; Stomatocytes 1+
[2021-02-20 08:54] LABS: Partial Thromboplastin Time 50.4 Seconds (21.0-31.0)
[2021-02-20 08:55] LABS: BUN Creatinine Ratio 7.1 (10-20); Calcium 9.4 mg/dl (8.5-10.1); Creatinine Clr Calc Pharmacy 19.9 ml/min; Est GFR (African American) 13.7; Est GFR (Non-African American) 11.9; Magnesium 2.9 mg/dl (1.8-2.4); Phosphorus 3.6 mg/dl (2.5-4.9); Potassium 3.7 mmol/L (3.5-5.1)
[2021-02-20] MEDS: CHOLECALCIFEROL 1,000 UNITS 25 MCG TAB PO SCH (09:02)
[2021-02-20] MEDS: ASPIRIN 81 MG CHEW PO SCH (09:02)
[2021-02-20] MEDS: LANSOPRAZOLE 30 MG SOLTAB PO SCH ×2 (09:03→20:29)
[2021-02-20] MEDS: SEVELAMER HCL 800 MG TABLET PO SCH ×3 (09:03→16:36)
[2021-02-20] MEDS: DICLOFENAC SOD 1% GEL 100 GM TUBE EXT SCH ×3 (09:04→20:30)
[2021-02-20] MEDS: DOCUSATE SODIUM SYRUP 100 MG/10 ML UDC PO SCH ×2 (09:04→20:29)
--- NOTE | 2021-02-20 13:19 | Hospitalist Progress Note ---
Date of Service February 20, 2021 Assessment & Plan (1) DVT (deep venous thrombosis): With a history of right upper extremity DVT during recent prolonged hospitalization which is now resolved Now with right lower extremity nonocclusive thrombus within the SFV - Patient reportedly had drop in HGB/HCT with Coumadin requiring transfusions and unable to verify if cause was identified, he was then on Apixaban 2.5 BID with ESRD on dialysis with new acute DVT found at [facility]. He is a dialysis patient and is unclear if the apixaban at that dose would be sufficient treatment -Continue Heparin drip with bolus and started Coumadin 7.5 mg p.o. once daily x4 days (started 02/19) Follow daily PT/PTT/INR-INR today 1.0, PTT therapeutic Discussed care with anticoagulation expert Dr. Houser who agrees with this plan (2) Weakness: Chronic following prolonged ICU admission in Nov. X2 months - PT/OT consults placed - Continue nutritional support for muscle building - rehab and muscle strengthening Patient is able to tolerate pureed diet and for now does not need supplementation for calories and protein through his G-tube. Nutrition consulted. Appreciate their assistance. Added Boost TID (3) ESRD (end stage renal disease) on dialysis: Started on hemodialysis during recent prolonged hospitalization Is on a Tuesday schedule Missed dialysis on Tuesday, received dialysis 02/19 and then again on Tuesday, then go back to Tuesday schedule next week Has [facility] TDC in place - Patient at [facility]- [facility] concierge manager are following him there per case management- Consulted Feed Management Advisor 4.7 today, K stable Follow BMP continue Sevelamer, Vit D (4) Anemia: Hemoglobin very low at 7.3-7.5 which is fairly stable from admission No evidence of bleeding from anywhere, he denies any melena or hematochezia. He reports a history of indigestion and had an EGD and colonoscopy in approximately September or October 2020 which showed Ryan's esophagus and one colon polyp-this was performed at [facility] -He could have had a stress ulcer given the recent prolonged ICU stay but there is no evidence of melena or acute GI bleeding -Provided with Venofer and Epogen with dialysis on 02/19 and is ordered again this way for 02/21 -Follow CBC in the morning -Continue PPI (5) COPD (chronic obstructive pulmonary disease): Continue home Combivent nebs/inhalers, no acute issues - On 3 LNC chronic - Goal 88-92% spo2 -With tracheostomy in place, continue trach care (6) JORDAN treated with BiPAP: Settings unable to verify- obese, tracheostomy, - titrate with respiratory therapy support - Auto-pap may support while in house if unable to dial in settings (7) Afib: Currently in NSR on Amiodarone Patient was unaware of this diagnosis, but did previously follow with a operations welder prior to his hospitalization-Dr. Evans at [facility] Perhaps this was found during his hospitalization and is lone Afib? 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 Otherwise he stood at the bedside today with PT. Only some GALLARDO. Is eating but reports early satiety after a few bites as he believes his stomach has shrunken. Tele with NSR, rates 80s Review of Systems Review of Systems: All systems reviewed & are unremarkable except as noted in HPI & below Physical Exam Constitutional: WD/WN, vitals as above + obese Eyes: + anicteric sclerae Neck: trachea midline, no thyromegaly (trach tube capped) Respiratory: normal respiratory effort, lungs clear to auscultation Cardiovascular: Rate/Rhythm: regular rate and regular rhythm Heart Sounds: no murmur Extremities: + edema (Bilateral 1+ pitting edema, ashen stringer color to the legs, ichthyosis) Chest (Breasts): Chest: normal inspection of chest Gastrointestinal (Abdomen): normal bowel sounds, soft, nontender, no hepatosplenomegaly Inspection/Auscultation: + abdomen abnormal to inspection (With PEG tube in place) Musculoskeletal: Extremities: extremities normal to inspection; no cyanosis and no clubbing Skin: no rashes, warm and dry Neurologic: moves all extremities and awake; no focal motor deficits Psychiatric: A+Ox3, euthymic affect Results & Data Results & Data ([facility]) Vital Signs (Past 12 Hours) Vital Signs Temp Pulse Pulse Resp BP Pulse Ox 02/20/21 11:44 36.6 C 95 H 18 144/68 H 91 02/20/21 11:01 87 18 95 02/20/21 07:49 74 18 97 02/20/21 07:34 36.4 C L 83 16 92/45 L 96 02/20/21 07:00 84 02/20/21 03:40 36.5 C 82 20 92/50 L 90 Laboratory Results 02/20/21 02/20/21 02/20/21 Range/Units 07:26 07:26 07:26 WBC 10.24 (4.8-10.8) K/uL RBC 2.72 L (4.7-6.1) M/uL Hgb 7.5 L (14.0-18.0) g/dL Hct 26.0 L (42-52) % MCV 95.6 (80-100) fL MCH 27.6 (25-34) pg MCHC 28.8 L (32-36) g/dL RDW Std Deviation 63.2 H (36.4-46.3) fL RDW Coeff of Aysha 18.5 H (11.5-14.5) % Plt Count 368 (130-400) K/uL MPV 8.6 (7.4-10.4) fL Immature Gran % (Auto) 0.4 % Neut % (Auto) 57.1 % Lymph % (Auto) 27.1 % [place] % (Auto) 8.7 % Eos % (Auto) 6.3 % Baso % (Auto) 0.4 % Neut # (Auto) 5.86 (1.4-6.5) K/uL Lymph # (Auto) 2.77 (1.2-3.4) K/uL [place] # (Auto) 0.89 H (0.11-0.59) K/uL Eos # (Auto) 0.64 H (0-0.5) K/uL Baso # (Auto) 0.04 (0-0.2) K/uL Immature Gran # (Auto) 0.04 H (0.00-0.02) K/uL Polychromasia 1+ Basophilic Stippling 1+ Stomatocytes 1+ PT 10.6 (9.0-12.0) Seconds INR 1.0 (0.9-1.1) APTT 50.4 H* (21.0-31.0) Seconds PTT Ratio 1.9 Sodium 132 L (136-145) mmol/L Potassium 3.7 D (3.5-5.1) mmol/L Chloride 97 L (98-107) mmol/L Carbon Dioxide 28 (21-32) mmol/L Anion Gap 7.0 (3-11) BUN 33 H D (7-18) mg/dl Creatinine 4.70 H* D (0.6-1.4) mg/dl Est Cr Clr Drug Dosing 19.9 ml/min Est GFR ( Amer) 13.7 Est GFR (Non-Af Amer) 11.9 BUN/Creatinine Ratio 7.1 L (10-20) Glucose 95 (70-99) mg/dl POC Glucose (70-99) mg/dl Calcium 9.4 (8.5-10.1) mg/dl Phosphorus 3.6 (2.5-4.9) mg/dl Magnesium 2.9 H (1.8-2.4) mg/dl 02/19/21 02/19/21 02/19/21 Range/Units 20:13 16:34 14:22 WBC (4.8-10.8) K/uL RBC (4.7-6.1) M/uL Hgb (14.0-18.0) g/dL Hct (42-52) % MCV (80-100) fL MCH (25-34) pg MCHC (32-36) g/dL RDW Std Deviation (36.4-46.3) fL RDW Coeff of Aysha (11.5-14.5) % Plt Count (130-400) K/uL MPV (7.4-10.4) fL Immature Gran % (Auto) % Neut % (Auto) % Lymph % (Auto) % [place] % (Auto) % Eos % (Auto) % Baso % (Auto) % Neut # (Auto) (1.4-6.5) K/uL Lymph # (Auto) (1.2-3.4) K/uL [place] # (Auto) (0.11-0.59) K/uL Eos # (Auto) (0-0.5) K/uL Baso # (Auto) (0-0.2) K/uL Immature Gran # (Auto) (0.00-0.02) K/uL Polychromasia Basophilic Stippling Stomatocytes PT (9.0-12.0) Seconds INR (0.9-1.1) APTT (21.0-31.0) Seconds PTT Ratio Sodium (136-145) mmol/L Potassium (3.5-5.1) mmol/L Chloride (98-107) mmol/L Carbon Dioxide (21-32) mmol/L Anion Gap (3-11) BUN (7-18) mg/dl Creatinine (0.6-1.4) mg/dl Est Cr Clr Drug Dosing ml/min Est GFR ( Amer) Est GFR (Non-Af Amer) BUN/Creatinine Ratio (10-20) Glucose (70-99) mg/dl POC Glucose 111 H 122 H 102 H (70-99) mg/dl Calcium (8.5-10.1) mg/dl Phosphorus (2.5-4.9) mg/dl Magnesium (1.8-2.4) mg/dl PG Care Time/CCT Total # of Minutes Spent Total Time Spent with Patient: Total time spent is greater than 50% in coordination of care (as documented) at patient's floor/unit and/or counseling patient: Coding Level of Care Code 63588 Subseq Hosp Care Lvl 3 Diagnoses DVT (deep venous thrombosis) I82.621 Affected thrombotic vein of extremity: unspecified vein of extremity Chronicity: acute DVT location: upper extremity Laterality: right Weakness R53.1 ESRD (end stage renal disease) on dialysis N18.6; Z99.2 Anemia D64.9 COPD (chronic obstructive pulmonary disease) J44.9 COPD type: unspecified COPD JORDAN treated with BiPAP G47.33 Afib I48.0 Atrial fibrillation type: paroxysmal Chronic respiratory failure with hypoxia J96.11 Neuropathy G62.9 Ryan esophagus K22.70 Constipation K59.00 Critical illness myopathy G72.81 Morbid obesity E66.01 (1) DVT (deep venous thrombosis) Affected thrombotic vein of extremity: unspecified vein of extremity Chronicity: acute DVT location: upper extremity Laterality: right Qualified Code(s): I82.621 - Acute embolism and thrombosis of deep veins of right upper extremity (2) COPD (chronic obstructive pulmonary disease) COPD type: unspecified COPD Qualified Code(s): J44.9 - Chronic obstructive pulmonary disease, unspecified (3) Afib Atrial fibrillation type: paroxysmal Qualified Code(s): I48.0 - Paroxysmal atrial fibrillation
[2021-02-20] MEDS: HEPARIN SODIUM/DEXTROSE 25,000 UNITS/500 ML BAG IV SCH (15:41)
[2021-02-20] MEDS: WARFARIN SOD 7.5 MG TAB PO SCH (16:36)
[2021-02-20] MEDS: TUBE FEEDING WATER FLUSH GT SCH (16:37)
[2021-02-20] MEDS: ATORVASTATIN 10 MG TAB PO SCH (20:29)
[2021-02-21] MEDS: HEPARIN SODIUM/DEXTROSE 25,000 UNITS/500 ML BAG IV SCH ×4 (05:16→21:01)
[2021-02-21] MEDS: AMIODARONE 200 MG TAB PO SCH ×2 (05:20→16:50)
[2021-02-21 05:36] LABS: Basophils # (auto) 0.03 K/uL (0-0.2); Basophils % (auto) 0.2 %; Eosinophils # (auto) 0.31 K/uL (0-0.5); Eosinophils % (auto) 2.6 %; Hematocrit (blood only) 27.7 % (42-52); Hemoglobin 8.2 g/dL (14.0-18.0); Immature Granulocytes # (auto) 0.04 K/uL (0.00-0.02); Immature Granulocytes % (auto) 0.3 %; Lymphocytes # (auto) 1.36 K/uL (1.2-3.4); Lymphocytes % (auto) 11.3 %; Mean Corpuscular Hemoglobin 27.5 pg (25-34); Mean Corpuscular Hgb Conc 29.6 g/dL (32-36); Mean Platelet Volume 8.5 fL (7.4-10.4); Monocytes # (auto) 0.61 K/uL (0.11-0.59); Monocytes % (auto) 5.1 %; Neutrophils # (auto) 9.66 K/uL (1.4-6.5); Neutrophils % (auto) 80.5 %; Nucleated RBC # (auto) 0.02 K/uL (0-0); Nucleated RBC % (auto) 0.1 %; Platelet Count 390 K/uL (130-400); RDW Coefficient of Variation 18.3 % (11.5-14.5); RDW Standard Deviation 61.8 fL (36.4-46.3); Red Blood Count 2.98 M/uL (4.7-6.1); White Blood Count 12.01 K/uL (4.8-10.8)
[2021-02-21 05:54] LABS: INR 1.1 (0.9-1.1); Partial Thromboplastin Ratio 1.2; Prothrombin Time 10.9 Seconds (9.0-12.0)
[2021-02-21 06:21] LABS: BUN Creatinine Ratio 8.2 (10-20); Calcium 8.6 mg/dl (8.5-10.1); Creatinine Clr Calc Pharmacy 15.1 ml/min; Est GFR (African American) 9.8; Est GFR (Non-African American) 8.5; Magnesium 2.9 mg/dl (1.8-2.4); Phosphorus 3.7 mg/dl (2.5-4.9); Potassium 4.6 mmol/L (3.5-5.1)
[2021-02-21] MEDS ORDERED: EPOETIN ALFA 10,000 UNITS/ML VIAL IV ONE (07:00)
[2021-02-21] MEDS ORDERED: HEPARIN IV BOLUS 3,000 UNITS in SYRINGE 0 ML IV ONE (07:00)
[2021-02-21] MEDS ORDERED: SODIUM CHLORIDE 0.9% 1000ML 1,000 ML IV PRN (07:00)
[2021-02-21] MEDS ORDERED: IRON SUCROSE 100 MG in SYRINGE 0 ML IV ONE (07:00)
[2021-02-21] MEDS: IPRATROPIUM BROMIDE HFA INHALER INH SCH ×4 (07:50→19:11)
[2021-02-21] MEDS: ALBUTEROL HFA 8 GM INHALER INH SCH ×4 (07:50→19:11)
[2021-02-21] MEDS: CHOLECALCIFEROL 1,000 UNITS 25 MCG TAB PO SCH (08:00)
[2021-02-21] MEDS: LANSOPRAZOLE 30 MG SOLTAB PO SCH ×2 (08:01→21:01)
[2021-02-21] MEDS: TUBE FEEDING WATER FLUSH GT SCH ×3 (08:01→16:52)
[2021-02-21] MEDS: SEVELAMER HCL 800 MG TABLET PO SCH ×3 (08:01→16:53)
[2021-02-21] MEDS: ASPIRIN 81 MG CHEW PO SCH (08:02)
[2021-02-21] MEDS: DICLOFENAC SOD 1% GEL 100 GM TUBE EXT SCH ×4 (08:03→21:01)
--- NOTE | 2021-02-21 09:31 | Nephrology Progress Note ---
Date of Service February 21, 2021 Assessment & Plan (1) ESRD (end stage renal disease) on dialysis: HAD 2.5 LIT off on last HD. For HD today, paln for UF of2 lit if BP permits. No heparin to be used., ( on heparin drip) (2) DVT (deep venous thrombosis): Continue on current management, Newer DOAC have not been very well studied on Dialysis patinet, he is obese too. - I would prefer warfarin for him over DOACs, - I leave this to primary team. Admission and Anticipated Discharge Date Admission Date: February 18, 2021 Subjective No complains today, NO sob,leg pain better. Review of Systems Review of Systems: All systems reviewed & are unremarkable except as noted in HPI & below Physical Exam Physical Exam: GENERAL: Awake, alert, no overt respiratory distress. HEENT: Normocephalic, atraumatic. NECK: Mucous membrane is moist. He does have a tracheostomy. CHEST: Bilateral decreased breath sounds, poor inspiratory effort. No overt respiratory distress. He is on 3 liters oxygen. CARDIOVASCULAR: Regular rate and rhythm. Does have chronic appearing edema with skin changes. No murmur. ABDOMEN: Obese, soft, nontender. EXTREMITIES: Shows edema which appears to be very chronic with chronic skin changes. PSYCHIATRIC: Normal mood and affect. Results & Data ([facility]) Vital Signs (Past 12 Hours) Vital Signs Temp Pulse Pulse Pulse Resp BP BP 02/21/21 09:00 109 H 101/55 L 02/21/21 08:33 37.0 C 111 H 108 H 02/21/21 08:00 37.1 C 111 H 22 94/47 L 02/21/21 07:51 89 18 02/21/21 07:00 109 H 02/21/21 03:23 37.1 C 104 H 18 111/66 02/21/21 02:38 104 H 02/20/21 23:33 36.8 C 107 H 20 107/66 Pulse Ox 02/21/21 09:00 02/21/21 08:33 02/21/21 08:00 95 02/21/21 07:51 92 02/21/21 07:00 02/21/21 03:23 95 02/21/21 02:38 02/20/21 23:33 93 Laboratory Results 02/21/21 05:17 02/21/21 05:17 (1) DVT (deep venous thrombosis) Affected thrombotic vein of extremity: unspecified vein of extremity Chronicity: acute DVT location: upper extremity Laterality: right Qualified Code(s): I82.621 - Acute embolism and thrombosis of deep veins of right upper e xtremity
[2021-02-21] MEDS ORDERED: ACETAMINOPHEN 1000 MG/100 ML IV IV STA ×2 (12:48→12:56)
[2021-02-21] MEDS ORDERED: VANCOMYCIN CONSULT ACTIVE PRN (12:49)
[2021-02-21] MEDS: DOCUSATE SODIUM SYRUP 100 MG/10 ML UDC PO SCH ×2 (12:51→21:01)
--- NOTE | 2021-02-21 12:57 | Hospitalist Progress Note ---
Date of Service February 21, 2021 Assessment & Plan (1) DVT (deep venous thrombosis): With a history of right upper extremity DVT during recent prolonged hospitalization which is now resolved Now with right lower extremity nonocclusive thrombus within the SFV - Patient reportedly had drop in HGB/HCT with Coumadin requiring transfusions and unable to verify if cause was identified, he was then on Apixaban 2.5 BID with ESRD on dialysis with new acute D[facility]. He is a dialysis patient and is unclear if the apixaban at that dose would be sufficient treatment -Continue Heparin drip with bolus and started Coumadin 7.5 mg p.o. once daily x4 days (started 02/19) Follow daily PT/PTT/INR-INR today 1.1, PTT subtherapeutic this MA--> increased heparin rate and repeat PTT this afternoon Discussed care with anticoagulation expert Dr. Houser who agrees with this plan (2) Acute metabolic encephalopathy: became altered and with fever, sepsis developing after return from HD on 02/21, with rigors -BCxs,CBC, CMP,lactate, procal, ABG ordered he is anuric so no UA -start empiric Vanco, Cefepime has a h/o MRSA PNA With hypoxia to 80% on usual 4LNC--> placed on Oxymask 5L and up to 94% Doubt PE, hypoxia likely due to sepsis, PNA, fever -give IV Tylenol x 1 now transfer to ICU (3) Hypoxia: Acute on chronic resp failure with hypoxia Has trach in place since Nov 2020 but is capped and uses at night for JORDAN? Also on 4LNC prior to recent ICU stay for MRSA PNA -now with hypoxia to 80% on 4LNC with sepsis -changed to OxyMask to 5L to keep POx>92% -CXR ordered-reviewed and appears with pleural effusions and possible PNA but similar to previous -transfer to ICU (4) Sepsis: as above in acute encephalopathy no IVFs to be given unless hypotensive difficult to ascertain if BP of 112 is accurate given rgors (5) Weakness: Chronic following prolonged ICU admission in Nov. X2 months - PT/OT consults placed - Continue nutritional support for muscle building - rehab and muscle strengthening Patient is able to tolerate pureed diet and for now does not need supplementation for calories and protein through his G-tube. Nutrition consulted. Appreciate their assistance. Added Boost TID (6) ESRD (end stage renal disease) on dialysis: Started on hemodialysis during recent prolonged hospitalization Is on a Tuesday schedule Missed dialysis on Tuesday, received dialysis 02/19 and then again on 02/21, then go back to Tuesday schedule next week Has [facility] TDC in place - Patient at [facility] machine preservative filler are following him there per case management- Consulted Marketing Operations Associate 4.6 today, K stable Follow BMP continue Sevelamer, Vit D (7) Anemia: Hemoglobin very low at 7.3-7.5, now up to 8.2 No evidence of bleeding from anywhere, he denies any melena or hematochezia. He reports a history of indigestion and had an EGD and colonoscopy in approximately September or October 2020 which showed Ryan's esophagus and one colon polyp-this was performed at [facility] -He could have had a stress ulcer given the recent prolonged ICU stay but there is no evidence of melena or acute GI bleeding -Provided with Venofer and Epogen with dialysis on 02/19 and is ordered again this way for 02/21 -Follow CBC in the morning -Continue PPI (8) COPD (chronic obstructive pulmonary disease): Continue home Combivent nebs/inhalers, no acute issues - On 4 LNC chronic - Goal 88-92% spo2 -With tracheostomy in place, continue trach care (9) JORDAN treated with BiPAP: Settings unable to verify- obese, tracheostomy, - titrate with respiratory therapy support - Auto-pap may support while in house if unable to dial in settings (10) Afib: Currently in NSR on Amiodarone Patient was unaware of this diagnosis, but did previously follow with a hand screen printer prior to his hospitalization-Dr. Evans at [place] cardiology Perhaps this was found during his hospitalization and is lone Afib? 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 Abdalla Admission and Anticipated Discharge Date Admission Date: February 18, 2021 Subjective Called urgently to pt's bedside by RN for being unresponsive and having tremors right after returning from dialysis. He was having rigors all over but responded to his name and tracked me while shaking, did say "no" when asked if he had pain. Temp was found to be elevated at 101.6 and BP normal, HR 106, not able to obtain POx yet when I saw him due to rigors. He wasn't able to tell me anything else but did shout out "ow!" when the nurse manipulated his hand to put the POx on. He was in ST on tele. Review of Systems Review of Systems: Unobtainable due to cognitive status Physical Exam Constitutional: WD/WN, vitals as above + ill appearing and + obese Eyes: + anicteric sclerae Neck: trachea midline, no thyromegaly (trach tube capped) Respiratory: + tachypneic (mild) Auscultation: no crackles, no rhonchi and no wheezes Cardiovascular: Rate/Rhythm: regular rate and regular rhythm Heart Sounds: no murmur Extremities: + edema (Bilateral 1+ pitting edema, ashen stringer color to the legs, ichthyosis) Chest (Breasts): Chest: + vascular access device or port (Rt TDC in place,no erythema) Gastrointestinal (Abdomen): normal bowel sounds, soft, nontender, no hepatosplenomegaly Inspection/Auscultation: + abdomen abnormal to inspection (With PEG tube in place) Musculoskeletal: Extremities: extremities normal to inspection; no cyanosis and no clubbing Skin: no rashes, warm and dry Neurologic: moves all extremities and awake; no focal motor deficits Psychiatric: Orientation: alert (awake and tracks to verbal stimulus,not speaking much ) Results & Data Results & Data ([facility]) Vital Signs (Past 12 Hours) Vital Signs Temp Pulse Pulse Pulse Resp BP BP 02/21/21 12:10 37.1 C 110 H 99/58 L 02/21/21 12:00 99 H 112/50 L 02/21/21 11:40 117 H 129/88 02/21/21 11:20 113 H 131/88 02/21/21 11:00 100 H 99/55 L 02/21/21 10:40 108 H 105/60 02/21/21 10:20 113 H 87/68 L 02/21/21 10:00 105 H 130/92 02/21/21 09:40 110 H 116/80 02/21/21 09:20 101 H 89/54 L 02/21/21 09:00 109 H 101/55 L 02/21/21 08:33 37.0 C 111 H 108 H 02/21/21 08:00 37.1 C 111 H 22 94/47 L 02/21/21 07:51 89 18 02/21/21 07:00 109 H 02/21/21 03:23 37.1 C 104 H 18 111/66 02/21/21 02:38 104 H Pulse Ox 02/21/21 12:10 02/21/21 12:00 02/21/21 11:40 02/21/21 11:20 02/21/21 11:00 02/21/21 10:40 02/21/21 10:20 02/21/21 10:00 02/21/21 09:40 02/21/21 09:20 02/21/21 09:00 02/21/21 08:33 02/21/21 08:00 95 02/21/21 07:51 92 02/21/21 07:00 02/21/21 03:23 95 02/21/21 02:38 Laboratory Results 02/21/21 02/21/21 02/21/21 Range/Units 12:43 07:45 05:17 WBC (4.8-10.8) K/uL RBC (4.7-6.1) M/uL Hgb (14.0-18.0) g/dL Hct (42-52) % MCV (80-100) fL MCH (25-34) pg MCHC (32-36) g/dL RDW Std Deviation (36.4-46.3) fL RDW Coeff of Aysha (11.5-14.5) % Plt Count (130-400) K/uL MPV (7.4-10.4) fL Immature Gran % (Auto) % Neut % (Auto) % Lymph % (Auto) % Mcmullen % (Auto) % Eos % (Auto) % Baso % (Auto) % Neut # (Auto) (1.4-6.5) K/uL Lymph # (Auto) (1.2-3.4) K/uL Mcmullen # (Auto) (0.11-0.59) K/uL Eos # (Auto) (0-0.5) K/uL Baso # (Auto) (0-0.2) K/uL Immature Gran # (Auto) (0.00-0.02) K/uL Absolute Nucleated RBC (0-0) K/uL Nucleated RBC % (auto) % PT 10.9 (9.0-12.0) Seconds INR 1.1 (0.9-1.1) APTT 31.0 (21.0-31.0) Seconds PTT Ratio 1.2 Sodium (136-145) mmol/L Potassium (3.5-5.1) mmol/L Chloride (98-107) mmol/L Carbon Dioxide (21-32) mmol/L Anion Gap (3-11) BUN (7-18) mg/dl Creatinine (0.6-1.4) mg/dl Est Cr Clr Drug Dosing ml/min Est GFR ( Amer) Est GFR (Non-Af Amer) BUN/Creatinine Ratio (10-20) Glucose (70-99) mg/dl POC Glucose 109 H 106 H (70-99) mg/dl Calcium (8.5-10.1) mg/dl Phosphorus (2.5-4.9) mg/dl Magnesium (1.8-2.4) mg/dl 02/21/21 02/21/21 02/20/21 Range/Units 05:17 05:17 19:59 WBC 12.01 H (4.8-10.8) K/uL RBC 2.98 L (4.7-6.1) M/uL Hgb 8.2 L (14.0-18.0) g/dL Hct 27.7 L (42-52) % MCV 93.0 (80-100) fL MCH 27.5 (25-34) pg MCHC 29.6 L (32-36) g/dL RDW Std Deviation 61.8 H (36.4-46.3) fL RDW Coeff of Aysha 18.3 H (11.5-14.5) % Plt Count 390 (130-400) K/uL MPV 8.5 (7.4-10.4) fL Immature Gran % (Auto) 0.3 % Neut % (Auto) 80.5 % Lymph % (Auto) 11.3 % Mcmullen % (Auto) 5.1 % Eos % (Auto) 2.6 % Baso % (Auto) 0.2 % Neut # (Auto) 9.66 H (1.4-6.5) K/uL Lymph # (Auto) 1.36 (1.2-3.4) K/uL Mcmullen # (Auto) 0.61 H (0.11-0.59) K/uL Eos # (Auto) 0.31 (0-0.5) K/uL Baso # (Auto) 0.03 (0-0.2) K/uL Immature Gran # (Auto) 0.04 H (0.00-0.02) K/uL Absolute Nucleated RBC 0.02 H (0-0) K/uL Nucleated RBC % (auto) 0.1 % PT (9.0-12.0) Seconds INR (0.9-1.1) APTT (21.0-31.0) Seconds PTT Ratio Sodium 130 L (136-145) mmol/L Potassium 4.6 D (3.5-5.1) mmol/L Chloride 96 L (98-107) mmol/L Carbon Dioxide 27 (21-32) mmol/L Anion Gap 7.0 (3-11) BUN 51 H D (7-18) mg/dl Creatinine 6.19 H* D (0.6-1.4) mg/dl Est Cr Clr Drug Dosing 15.1 ml/min Est GFR ( Amer) 9.8 Est GFR (Non-Af Amer) 8.5 BUN/Creatinine Ratio 8.2 L (10-20) Glucose 91 (70-99) mg/dl POC Glucose 105 H (70-99) mg/dl Calcium 8.6 (8.5-10.1) mg/dl Phosphorus 3.7 (2.5-4.9) mg/dl Magnesium 2.9 H (1.8-2.4) mg/dl 02/20/21 Range/Units 16:49 WBC (4.8-10.8) K/uL RBC (4.7-6.1) M/uL Hgb (14.0-18.0) g/dL Hct (42-52) % MCV (80-100) fL MCH (25-34) pg MCHC (32-36) g/dL RDW Std Deviation (36.4-46.3) fL RDW Coeff of Aysha (11.5-14.5) % Plt Count (130-400) K/uL MPV (7.4-10.4) fL Immature Gran % (Auto) % Neut % (Auto) % Lymph % (Auto) % Mcmullen % (Auto) % Eos % (Auto) % Baso % (Auto) % Neut # (Auto) (1.4-6.5) K/uL Lymph # (Auto) (1.2-3.4) K/uL Mcmullen # (Auto) (0.11-0.59) K/uL Eos # (Auto) (0-0.5) K/uL Baso # (Auto) (0-0.2) K/uL Immature Gran # (Auto) (0.00-0.02) K/uL Absolute Nucleated RBC (0-0) K/uL Nucleated RBC % (auto) % PT (9.0-12.0) Seconds INR (0.9-1.1) APTT (21.0-31.0) Seconds PTT Ratio Sodium (136-145) mmol/L Potassium (3.5-5.1) mmol/L Chloride (98-107) mmol/L Carbon Dioxide (21-32) mmol/L Anion Gap (3-11) BUN (7-18) mg/dl Creatinine (0.6-1.4) mg/dl Est Cr Clr Drug Dosing ml/min Est GFR ( Amer) Est GFR (Non-Af Amer) BUN/Creatinine Ratio (10-20) Glucose (70-99) mg/dl POC Glucose 112 H (70-99) mg/dl Calcium (8.5-10.1) mg/dl Phosphorus (2.5-4.9) mg/dl Magnesium (1.8-2.4) mg/dl PG Care Time/CCT Total # of Minutes Spent Total Time Spent with Patient: Total time spent is greater than 50% in coordination of care (as documented) at patient's floor/unit and/or counseling patient: Coding Level of Care Code 60256 Subseq Hosp Care Lvl 3 Diagnoses DVT (deep venous thrombosis) I82.621 Affected thrombotic vein of extremity: unspecified vein of extremity Chronicity: acute DVT location: upper extremity Laterality: right Acute metabolic encephalopathy G93.41 Hypoxia R09.02 Sepsis A41.9 Weakness R53.1 ESRD (end stage renal disease) on dialysis N18.6; Z99.2 Anemia D64.9 COPD (chronic obstructive pulmonary disease) J44.9 COPD type: unspecified COPD JORDAN treated with BiPAP G47.33 Afib I48.0 Atrial fibrillation type: paroxysmal Chronic respiratory failure with hypoxia J96.11 Neuropathy G62.9 Ryan esophagus K22.70 Constipation K59.00 Critical illness myopathy G72.81 Morbid obesity E66.01 (1) DVT (deep venous thrombosis) Affected thrombotic vein of extremity: unspecified vein of extremity Chronicity: acute DVT location: upper extremity Laterality: right Qualified Code(s): I82.621 - Acute embolism and thrombosis of deep veins of right upper extremity (2) Afib Atrial fibrillation type: paroxysmal Qualified Code(s): I48.0 - Paroxysmal atrial fibrillation (3) COPD (chronic obstructive pulmonary disease) COPD type: unspecified COPD Qualified Code(s): J44.9 - Chronic obstructive pulmonary disease, unspecified
[2021-02-21] MEDS ORDERED: ACETAMINOPHEN 1,000 MG/100 ML VIAL IV ONE (13:00)
[2021-02-21] MEDS ORDERED: VANCOMYCIN HCL 1,000 MG in SODIUM CHLORIDE 0.9% 250 ML IV SCH (13:00)
[2021-02-21] MEDS ORDERED: CEFEPIME 2,000 MG in SYRINGE 0 ML IV SCH (13:15)
--- NOTE | 2021-02-21 13:21 | Critical Care Consultation ---
Date of Consultation February 21, 2021 Assessment & Plan (1) Sepsis: Chest x-ray 02/01/2021 personally reviewed: Portable film, poor inspiratory effort, bilateral costophrenic angles are blunted, increased cardiac silhouette, right-sided permacath visualized, no clear infiltrate appreciated. --Sepsis Etiology is unclear Patient started to have fever and chills after dialysis Possibility of bacteremia is high especially given Pseudomonas pneumonia as well as MRSA pneumonia in the past ESR: 43, CRP: 9.45 Procalcitonin 4.32 COVID-19 PCR negative, influenza A/B negative Continue with vancomycin and cefepime Follow-up septic work-up Follow-up sputum culture --Acute metabolic encephalopathy Likely secondary to sepsis Aspiration precautions If there is any compromise in the airway we will connect the patient to ventilator --Acute on chronic hypercapnic hypoxic respiratory failure Multifactorial Bilateral pleural effusion with fluid overload playing a role Along with sepsis Continue with O2 supplementation for the time being Patient's trach is capped. Can use BiPAP on top of it If the patient will go into respiratory distress will connect him to ventilator. --Acute DVT On heparin drip as a bridge to warfarin --End-stage renal disease on HD Nephrology on board --A. 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 --JORDAN Continue with BiPAP while in the hospital. --Prophylaxis VTE: Heparin drip GI: Lansoprazole Lines: Peripheral, right-sided permacath Diet: N.p.o. Plan: AB.37/51/69 5 L O2 supplementation, Tylenol for fever Broad-spectrum antibiotics Sputum culture, blood culture Keep O2 sats 88-92% Patient also had history of questionable C. difficile. Will send for C. difficile toxin. I have personally spent 51 minutes of critical care time in the direct management of this patient. This is a life/limb threatening event. This includes time spent evaluating patient, direct bedside care, chart review, placing orders, interpretation of diagnostic studies, discussion with consultants, patient, and family members, as well as other required patient management activities. This time is exclusive of all separately billable procedures, and teaching time and separate from and in addition to any other critical care service time. Please note the above document was generated using voice recognition software. It may contain grammatical, syntax or spelling errors. (2) Acute metabolic encephalopathy: (3) ESRD (end stage renal disease) on dialysis: (4) COPD (chronic obstructive pulmonary disease): (5) Acute on chronic respiratory failure with hypoxia and hypercapnia: (6) DVT (deep venous thrombosis): History of Present Illness Attending Physician: Cesia Sears MD History of Present Illness 70-year-old past medical history of morbid obesity, OHS/OHS, trach dependent which is capped, COPD on chronic 3 L at home, pulmonary hypertension, A. fib on apixaban end-stage renal disease on hemodialysis with recent admission for MRSA pneumonia. Patient had a duplex on the of the lower extremity which showed DVT of the proximal femoral vein while on apixaban. He was sent for heparin drip with Coumadin. Today patient was transferred to the ICU as after dialysis he started to spike fever as high as 38.6 and he was transiently hypotensive and lethargic. At the time of examination patient was having fever of 38.8. He was shivering. He was really confused not able to answer all questions appropriately. Denied any chest pain. Denied any headache. No nausea or vomiting. Patient was a poor historian most likely because of the fever that he had. Rest of the history obtained from previous chart. Allergies Allergy/AdvReac Type Severity Reaction Status Date / Time levofloxacin [From Levaquin] Allergy Unknown can't Unverified 02/18/21 10:22 breath/swelling Home Medications Medication Instructions Recorded Confirmed Type amiodarone 100 mg FEEDING TUBE Q12H 02/18/21 02/18/21 History apixaban 2.5 mg PO BID 02/18/21 02/18/21 History aspirin 81 mg FEEDING TUBE DAILY 02/18/21 02/18/21 History atorvastatin [Lipitor] 10 mg FEEDING TUBE HS 02/18/21 02/18/21 History cholecalciferol (vitamin D3) 50 mcg FEEDING TUBE DAILY 02/18/21 02/18/21 History [Vitamin D3] diclofenac sodium 2 g TOPICAL TID 02/18/21 02/18/21 History docusate sodium 100 mg FEEDING TUBE BID 02/18/21 02/18/21 History heparin (porcine) 5,000 unit SUBCUT Q12H 02/18/21 02/18/21 History hydrocodone-acetaminophen 1 tab FEEDING TUBE BID PRN 02/18/21 02/18/21 History ipratropium-albuterol 3 ml INHALATION Q6H PRN 02/18/21 02/18/21 History ipratropium-albuterol [Combivent 1 puff INHALATION QID 02/18/21 02/18/21 History Respimat] omeprazole magnesium [Prilosec] 40 mg FEEDING TUBE BID 02/18/21 02/18/21 History pediatric multivitamin [Multiple 1 tab FEEDING TUBE DAILY 02/18/21 02/18/21 History Vitamins] sevelamer carbonate 2.4 g FEEDING TUBE TIDM 02/18/21 02/18/21 History Patient History Medical History (Updated 02/21/21 @ 18:53 by Lee Ann Abdalla MD) Afib Anemia Ryan esophagus Chronic respiratory failure with hypoxia Constipation COPD (chronic obstructive pulmonary disease) DVT (deep venous thrombosis) ESRD (end stage renal disease) on dialysis Hypertension Morbid obesity Neuropathy JORDAN treated with BiPAP Pulmonary hypertension Renal failure, chronic Weakness Social History Smoking Status: Former smoker Smoking End Date: 30 years ago; Hx Alcohol Use: No Preferred Language: Maltese Communication Ability: Effective Beliefs That Will Affect Care: None marital status: Single Current Living Situation: Other Other Information That Helps Us Care for You: No Feels Safe at Home: Yes Assistive Devices: BiPap, Nebulizer and Oxygen - Continuous Review of Systems Review of Systems: All systems reviewed & are unremarkable except as noted in Subjective Physical Exam Physical Exam: Constitutional: In distress secondary to fever HEENT: EOMI, PERRLA, size 6 fenestrated trach Respiratory system: Decreased air entry bilaterally, no wheeze, no rhonchi, positive crackles bilaterally CVS: S1-S2 positive, no murmurs or gallops, tachycardia Abdomen: Soft, nontender, nondistended, positive bowel sounds x4, obese Extremities: +2 pulses bilaterally radialis/ dorsalis pedis, no cyanosis, +2 pitting edema bilateral lower extremity Neuro: Awake alert oriented to self Psych: Normal mood and affect G/U: No Salguero Skin: no rashes, warm and dry Lymphatic: no cervical or axillary lymphadenopathy Results & Data Results & Data ([facility]) Vital Signs (Past 12 Hours) Vital Signs Temp Pulse Pulse Pulse Resp BP BP 03/27/21 13:11 122 H 20 02/21/21 13:03 127 H 20 112/66 02/21/21 12:45 38.6 C H 120 H 22 124/64 02/21/21 12:10 37.1 C 110 H 99/58 L 02/21/21 12:00 99 H 112/50 L 02/21/21 11:40 117 H 129/88 02/21/21 11:20 113 H 131/88 02/21/21 11:00 100 H 99/55 L 02/21/21 10:40 108 H 105/60 02/21/21 10:20 113 H 87/68 L 02/21/21 10:00 105 H 130/92 02/21/21 09:40 110 H 116/80 02/21/21 09:20 101 H 89/54 L 02/21/21 09:00 109 H 101/55 L 02/21/21 08:33 37.0 C 111 H 108 H 02/21/21 08:00 37.1 C 111 H 22 94/47 L 02/21/21 07:51 89 18 02/21/21 07:00 109 H 02/21/21 03:23 37.1 C 104 H 18 111/66 02/21/21 02:38 104 H Pulse Ox 02/21/21 13:11 93 02/21/21 13:03 94 02/21/21 12:45 100 02/21/21 12:10 02/21/21 12:00 02/21/21 11:40 02/21/21 11:20 02/21/21 11:00 02/21/21 10:40 02/21/21 10:20 02/21/21 10:00 02/21/21 09:40 02/21/21 09:20 02/21/21 09:00 02/21/21 08:33 02/21/21 08:00 95 02/21/21 07:51 92 02/21/21 07:00 02/21/21 03:23 95 02/21/21 02:38 02/21/21 05:17 02/21/21 05:17 Coding Level of Care Code Critical Care 1st 30-74 mins Diagnoses Sepsis A41.9 Acute metabolic encephalopathy G93.41 ESRD (end stage renal disease) on dialysis N18.6; Z99.2 COPD (chronic obstructive pulmonary disease) J44.9 COPD type: unspecified COPD Acute on chronic respiratory failure with hypoxia and hypercapnia J96.21; J96.22 DVT (deep venous thrombosis) I82.621 Affected thrombotic vein of extremity: unspecified vein of extremity Chronicity: acute DVT location: upper extremity Laterality: right Time Spent (min) 51 (1) COPD (chronic obstructive pulmonary disease) COPD type: unspecified COPD Qualified Code(s): J44.9 - Chronic obstructive pulmonary disease, unspecified (2) DVT (deep venous thrombosis) Affected thrombotic vein of extremity: unspecified vein of extremity Chronicity: acute DVT location: upper extremity Laterality: right Qualified Code(s): I82.621 - Acute embolism and thrombosis of deep veins of right upper extremity
[2021-02-21 13:26] LABS: Base Excess ABG 3.1 mEq/L (-9-1.8); HCO3 ABG 29 mmol/L (19-24); PCO2 ABG 51 mmHg (35-46); PO2 ABG 69 mmHg (80-95); pH ABG 7.37 (7.35-7.45)
--- NOTE | 2021-02-21 13:26 | Pharmacy Report ---
Pharmacy Abx Dose Short Note - Date of Service February 21, 2021 - Assessment & Plan Assessment * 70 year old M with significant PMH including prolonged recent hospitalization @ OSH in November with ICU stay for COPD exacerbation / MRSA PNA followed by LTAC stay now admitted for VTE and starting on cefepime and vancomycin empirically * Recent initiation of HD, outpatient regimen MWF. Trach dependent. Vancomycin * 20 mg/kg load for HD patient * Currently empirically x48 hrs * Will dose ongoing via pre-HD levels Plan * Vancomycin 2500 mg IV x1 * Random level with AM labs Pharmacy will continue to follow and will adjust dose/frequency as necessary. Thank you.
[2021-02-21 13:27] LABS: Allen Test Pos (Pos)
[2021-02-21 13:30] LABS: Basophils # (auto) 0.03 K/uL (0-0.2); Basophils % (auto) 0.3 %; Eosinophils # (auto) 0.09 K/uL (0-0.5); Eosinophils % (auto) 0.8 %; Hematocrit (blood only) 27.8 % (42-52); Hemoglobin 8.2 g/dL (14.0-18.0); Immature Granulocytes # (auto) 0.03 K/uL (0.00-0.02); Immature Granulocytes % (auto) 0.3 %; Lymphocytes # (auto) 0.87 K/uL (1.2-3.4); Lymphocytes % (auto) 7.4 %; Mean Corpuscular Hemoglobin 27.6 pg (25-34); Mean Corpuscular Volume 93.6 fL (80-100); Mean Platelet Volume 8.3 fL (7.4-10.4); Monocytes # (auto) 0.49 K/uL (0.11-0.59); Monocytes % (auto) 4.2 %; Platelet Count 358 K/uL (130-400); RDW Coefficient of Variation 18.3 % (11.5-14.5); RDW Standard Deviation 61.6 fL (36.4-46.3); Red Blood Count 2.97 M/uL (4.7-6.1); White Blood Count 11.71 K/uL (4.8-10.8)
[2021-02-21] MEDS ORDERED: VANCOMYCIN HCL 2,500 MG in SODIUM CHLORIDE 0.9% 500 ML IV ONE (13:30)
--- NOTE | 2021-02-21 13:35 | XRay Report ---
XR chest 1V portable HISTORY: hypoxia,fever COMPARISON: Chest 02/18/2021. FINDINGS: Right subclavian central venous catheter terminates in the SVC. There are low lung volumes. No pneumothorax. Small bilateral pleural effusions have slightly progressed. There is progressive in terstitial/vascular thickening suggestive of mild pulmonary edema. Bibasilar densities persist. The h eart remains enlarged. IMPRESSION: 1. Interval progression of the mild interstitial pulmonary edema and small bilateral pleural effusion s. 2. Bibasilar densities, unchanged. This may represent atelectasis from the pleural effusions. ACT 112: Negative or not required by law. Electronically signed by: Vinayak Shepherd M.D. 02/21/2021 1:33 PM
[2021-02-21 13:57] LABS: Albumin Globulin Ratio 0.6 (0.9-2); Albumin Level 2.9 gm/dl (3.4-5.0); BUN Creatinine Ratio 6.2 (10-20); Bilirubin,Total 0.5 mg/dl (0.2-1); C Reactive Protein 9.45 mg/dl (0-0.29); Calcium 8.4 mg/dl (8.5-10.1); Creatinine Clr Calc Pharmacy 28.1 ml/min; Est GFR (African American) 21.1; Est GFR (Non-African American) 18.2; Globulin 4.9 gm/dl (2.5-4.0); Potassium 3.8 mmol/L (3.5-5.1); Total Protein 7.8 gm/dl (6.4-8.2)
[2021-02-21 14:00] LABS: Mean Corpuscular Hgb Conc 29.5 g/dL (32-36)
[2021-02-21 14:52] LABS: Partial Thromboplastin Ratio 3.4
[2021-02-21 14:55] LABS: Partial Thromboplastin Time 90.2 Seconds (21.0-31.0)
[2021-02-21] MEDS: WARFARIN SOD 7.5 MG TAB PO SCH (16:49)
[2021-02-21] MEDS ORDERED: ACETAMINOPHEN 1,000 MG/100 ML VIAL IV STA (18:08)
[2021-02-21] MEDS: ATORVASTATIN 10 MG TAB PO SCH (21:01)
[2021-02-21] MEDS: KETOROLAC TROMETHAMINE 15 MG/ML VIAL IV PRN (21:13)
[2021-02-21 21:18] LABS: Partial Thromboplastin Ratio 2.4
[2021-02-21 21:23] LABS: Partial Thromboplastin Time 62.1 Seconds (21.0-31.0)
[2021-02-22] MEDS: TUBE FEEDING WATER FLUSH GT SCH ×4 (00:23→22:01)
[2021-02-22] MEDS: AMIODARONE 200 MG TAB PO SCH ×2 (03:59→17:06)
[2021-02-22] MEDS: KETOROLAC TROMETHAMINE 15 MG/ML VIAL IV PRN ×2 (03:59→19:43)
[2021-02-22 05:04] LABS: Hematocrit (blood only) 28.7 % (42-52); Hemoglobin 8.1 g/dL (14.0-18.0); Mean Corpuscular Hemoglobin 27.1 pg (25-34); Mean Corpuscular Hgb Conc 28.2 g/dL (32-36); Mean Platelet Volume 8.9 fL (7.4-10.4); Nucleated RBC # (auto) 0.07 K/uL (0-0); Nucleated RBC % (auto) 0.4 %; Platelet Count 339 K/uL (130-400); RDW Coefficient of Variation 18.8 % (11.5-14.5); RDW Standard Deviation 63.7 fL (36.4-46.3); Red Blood Count 2.99 M/uL (4.7-6.1); White Blood Count 17.97 K/uL (4.8-10.8)
[2021-02-22 05:05] LABS: Basophils # (auto) 0.05 K/uL (0-0.2); Basophils % (auto) 0.3 %; Eosinophils # (auto) 0.13 K/uL (0-0.5); Eosinophils % (auto) 0.7 %; Immature Granulocytes % (auto) 0.6 %; Lymphocytes # (auto) 1.38 K/uL (1.2-3.4); Lymphocytes % (auto) 7.7 %; Monocytes # (auto) 0.86 K/uL (0.11-0.59); Monocytes % (auto) 4.8 %; Neutrophils # (auto) 15.45 K/uL (1.4-6.5); Neutrophils % (auto) 85.9 %
[2021-02-22 05:23] LABS: INR 1.4 (0.9-1.1); Partial Thromboplastin Ratio 1.9; Prothrombin Time 13.4 Seconds (9.0-12.0)
[2021-02-22 05:24] LABS: Partial Thromboplastin Time 49.4 Seconds (21.0-31.0)
[2021-02-22 06:08] LABS: Albumin Globulin Ratio 0.5 (0.9-2); Albumin Level 2.5 gm/dl (3.4-5.0); Bilirubin,Total 0.5 mg/dl (0.2-1); Creatinine Clr Calc Pharmacy 19.9 ml/min; Est GFR (African American) 13.8; Est GFR (Non-African American) 11.9; Globulin 4.9 gm/dl (2.5-4.0); Magnesium 2.6 mg/dl (1.8-2.4); Phosphorus 5.4 mg/dl (2.5-4.9); Potassium 4.3 mmol/L (3.5-5.1); Total Protein 7.4 gm/dl (6.4-8.2)
[2021-02-22] MEDS: IPRATROPIUM BROMIDE HFA INHALER INH SCH ×4 (07:43→19:12)
[2021-02-22] MEDS: ALBUTEROL HFA 8 GM INHALER INH SCH ×4 (07:43→19:12)
[2021-02-22] MEDS ORDERED: PIPERACILL/TAZOBAC CONSULT ACTIVE PRN (07:58)
[2021-02-22] MEDS ORDERED: PIPERACILLIN/TAZOBACTAM 4.5 GM in DEXTROSE 5% 100 ML IV ONE (08:15)
[2021-02-22] MEDS: SEVELAMER HCL 800 MG TABLET PO SCH ×3 (08:25→16:30)
[2021-02-22] MEDS: LANSOPRAZOLE 30 MG SOLTAB PO SCH ×2 (08:28→21:36)
[2021-02-22] MEDS: DOCUSATE SODIUM SYRUP 100 MG/10 ML UDC PO SCH ×2 (08:28→21:36)
[2021-02-22] MEDS: ASPIRIN 81 MG CHEW PO SCH (08:29)
[2021-02-22] MEDS: CHOLECALCIFEROL 1,000 UNITS 25 MCG TAB PO SCH (08:30)
[2021-02-22] MEDS: DICLOFENAC SOD 1% GEL 100 GM TUBE EXT SCH ×3 (08:31→21:37)
[2021-02-22] MEDS ORDERED: PIPERACILLIN/TAZOBACTAM 3.375 GM in DEXTROSE 5% 100 ML IV SCH (09:00)
--- NOTE | 2021-02-22 09:36 | Nephrology Progress Note ---
Date of Service February 22, 2021 Assessment & Plan (1) ESRD (end stage renal disease) on dialysis: had 1.2 lit UF yesrterday, goal decresaed 2/2 hypotension. - maintains good saturation on 3 l, - Electrolyte safe, - No need for urgent HD today. - Hd tomorrow as per schedule. (2) DVT (deep venous thrombosis): Continue on current management (3) Sepsis: High WBC,with fever post HD yesterday, On Van + ZOYSN. Source unknown , Likley chest,But I would have low threshold for removing the TDC if continue to spike temperature, - Follow on blood culture and sputum culture. (4) Acute metabolic encephalopathy: Likely 2/2 sepsis Admission and Anticipated Discharge Date Admission Date: February 18, 2021 Subjective Shifted to ICU yesterday after c/o fever with rigors post HD, Hypotensive, getting albumin infusion Not in respiratory distress. Review of Systems Review of Systems: Other Comfortable, no t in distress, alert and Orineted. Physical Exam Physical Exam: GENERAL: Not in distress, Obese, Alert. HEENT: Normocephalic, atraumatic. NECK: Mucous membrane is moist. He does have a tracheostomy. CHEST: Bilateral decreased breath sounds, poor inspiratory effort. No overt respiratory distress. He is on 3 liters oxygen, TDC exit site clean. CARDIOVASCULAR: Regular rate and rhythm. Does have chronic appearing edema with skin changes. No murmur. ABDOMEN: Obese, soft, nontender. EXTREMITIES: Shows edema which appears to be very chronic with chronic skin changes. PSYCHIATRIC: Normal mood and affect. Results & Data ([facility]) Vital Signs (Past 12 Hours) Vital Signs Temp Pulse Pulse Resp BP Pulse Ox 02/22/21 07:44 98 H 22 92 02/22/21 06:05 37.8 C H 96 H 19 88/54 L 91 02/22/21 05:01 38.1 C H 98 H 24 113/50 L 93 02/22/21 03:01 38.4 C H 104 H 20 129/64 93 02/22/21 01:00 37.8 C H 102 H 23 144/66 H 89 L 02/22/21 00:10 37.7 C H 100 H 24 136/62 90 02/22/21 00:01 37.8 C H 103 H 23 136/62 89 L 02/22/21 00:00 100 H 02/21/21 23:00 38.1 C H 99 H 19 93/47 L 93 02/21/21 22:01 39.0 C H 108 H 23 113/51 L 93 Laboratory Results 02/22/21 04:47 02/22/21 04:47 (1) DVT (deep venous thrombosis) Affected thrombotic vein of extremity: unspecified vein of extremity Chronicity: acute DVT location: upper extremity Laterality: right Qualified Code(s): I82.621 - Acute embolism and thrombosis of deep veins of right upper extremity
[2021-02-22] MEDS ORDERED: ALBUMIN 5% 250 ML IV ONE (10:12)
--- NOTE | 2021-02-22 12:01 | Pharmacy Report ---
Pharmacy Abx Dose Short Note - Date of Service February 22, 2021 - Assessment & Plan Assessment * 70 year old M with significant PMH including prolonged recent hospitalization @ OSH in November with ICU stay for COPD exacerbation / MRSA PNA followed by LTAC stay now admitted for VTE and starting on cefepime and vancomycin empirically. Regimen broadened to Zosyn and vancomycin today * Recent initiation of HD, outpatient regimen MWF. Trach dependent. * WBC increased and patient remains febrile. Vancomycin * Currently empirically x48 hrs - may require ongoing after 48 hours based on severity of illness * Random AM level supratherapeutic at 27.5 mcg/mL * Patient completed 3.5 hr of HD prior to initiation of vancomycin yesterday. No HD planned today per nephrology, but likely tomorrow. * No additional vancomycin needed today as patient is not being dialyzed Plan * Random vancomycin level with AM labs 02/23 Pharmacy will continue to follow and will adjust dose/frequency as necessary. Thank you.
--- NOTE | 2021-02-22 12:28 | Hospitalist Progress Note ---
Date of Service February 22, 2021 Assessment & Plan (1) DVT (deep venous thrombosis): Admitted initially for RLE DVT and then developed sepsis as below With a history of right upper extremity DVT during recent prolonged hospitalization which is now resolved Now with right lower extremity nonocclusive thrombus within the SFV - Patient reportedly had drop in HGB/HCT with Coumadin requiring transfusions and unable to verify if cause was identified, he was then on Apixaban 2.5 BID with ESRD on dialysis with new acute DVT found at [facility]. -He is a dialysis patient and is unclear if the apixaban at that dose would be sufficient treatment -Continue Heparin drip and started Coumadin 7.5 mg p.o. once daily x4 days (started 02/19) as per rec from Dr. Houser Follow daily PT/PTT/INR-INR today 1.4 , PTT therapeutic Discussed care with anticoagulation expert Dr. Houser who agrees with this plan (2) Acute metabolic encephalopathy: became altered and with fever, sepsis developing after return from HD on 02/21, with rigors with hypoxia to 80% on 4LNC and hypotension to the 80s Transferred to ICU on 02/21 MS improved today with resolution of fever. BPs today remain soft in the 80s systolic PCT elevated, lactate negative, ABG with normal pH and mildly elevated PaCO2 likely chronic retainer, CBC with worsening leukocytosis BCxs-NGTD but still early he is anuric so no UA CXR with ? PNA vs effusions and atelectasis but is more hypoxic than previous COuld be transient bacteremia from HD? -continue empiric Vanco (renally dosed with HD on random vanc levels, continue Zosyn (initially was on Cefepime) -has a h/o MRSA PNA as well as Pseudomonas as per his sister's account of recent hospitalization (records requested but not yet received) -tylenol prn fevers -IV albumin given for hypotension -if persistent fevers or bacteremia, may need to remove TDC -follow CBC, CMP (3) Hypoxia: Acute on chronic resp failure with hypoxia-sats dropped to 80% on 4LNC while spiking fever on 02/[address] since Nov 2020 but is capped and uses at night for JORDAN? Also on 4LNC prior to recent ICU stay for MRSA PNA -improved but continues on Oxymask for now until mentation improves and can revert back to NC, POx 93% on 4L -CXR-reviewed and appears with pleural effusions and possible PNA but similar to previous (4) Sepsis: as above in acute encephalopathy (5) Weakness: Chronic following prolonged ICU admission in Nov. X2 months. Likely with Critical illness myopathy - PT/OT consults placed - Continue nutritional support for muscle building - rehab and muscle strengthening Patient is able to tolerate pureed diet and for now does not need supplementation for calories and protein through his G-tube. Nutrition consulted. Appreciate their assistance. Added Boost TID (6) ESRD (end stage renal disease) on dialysis: Started on hemodialysis during recent prolonged hospitalization Is on a Tuesday schedule Missed dialysis on Tuesday, received dialysis 02/19 and then again on 02/21, then go back to Tuesday schedule next week Has RIJ TDC in place, now with sepsis as above may need to be removed if ends up with bacteremia - Patient at [facility]- [facility] shoe stainer are following him there per case management- Consulted Follow BMP continue Sevelamer, Vit D (7) Anemia: Hemoglobin very low at 7.3-7.5, now up to 8.1 No evidence of bleeding from anywhere, he denies any melena or hematochezia. He reports a history of indigestion and had an EGD and colonoscopy in approximately September or October 2020 which showed Ryan's esophagus and one colon polyp-this was performed at [facility] -He could have had a stress ulcer given the recent prolonged ICU stay but there is no evidence of melena or acute GI bleeding -Provided with Venofer and Epogen with dialysis on 02/19 and again on 02/21 -Follow CBC in the morning -Continue PPI (8) COPD (chronic obstructive pulmonary disease): Continue home Combivent nebs/inhalers, no acute issues - On 4 LNC chronic - Goal 88-92% spo2 -With tracheostomy in place, continue trach care (9) JORDAN treated with BiPAP: Settings unable to verify- obese, tracheostomy, - titrate with respiratory therapy support - Auto-pap may support while in house if unable to dial in settings (10) Afib: Currently in NSR on Amiodarone Patient was unaware of this diagnosis, but did previously follow with a animal science professor prior to his hospitalization-Dr. Evans at [facility] Perhaps this was found during his hospitalization and is lone Afib? 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 Fevers have resolved. BPs remain low at 87/51 when I saw him but received IV albumin, not on pressors. Denies pain, remembers feeling confused and weak during yesterday's quasi-code purple Tele with NSR 90s Review of Systems Review of Systems: All systems reviewed & are unremarkable except as noted in HPI & below Physical Exam Constitutional: WD/WN, vitals as above + ill appearing and + obese Eyes: + anicteric sclerae Neck: trachea midline, no thyromegaly (trach tube capped) Respiratory: normal respiratory effort (on 4L Oxymask) Auscultation: + diminished lung sounds (at bases); no crackles, no rhonchi and no wheezes Cardiovascular: RRR, no murmur, no edema Rate/Rhythm: regular rate and regular rhythm Heart Sounds: no murmur Extremities: + edema (Bilateral 1+ pitting edema, ashen stringer color to the legs, ichthyosis) Chest (Breasts): Chest: + vascular access device or port (Rt TDC in place,no erythema) Gastrointestinal (Abdomen): normal bowel sounds, soft, nontender, no hepatosplenomegaly Inspection/Auscultation: + abdomen abnormal to inspection (With PEG tube in place) Musculoskeletal: Extremities: extremities normal to inspection; no cyanosis and no clubbing Skin: no rashes, warm and dry Neurologic: moves all extremities and awake; no focal motor deficits Psychiatric: A+Ox3, euthymic affect (slightly lethargic but much more alert than yesterday) Lymphatic: no lymphedema Results & Data Results & Data ([facility]) Vital Signs (Past 12 Hours) Vital Signs Temp Pulse Pulse Resp BP Pulse Ox 02/22/21 11:07 94 H 18 93 02/22/21 08:00 36.9 C 02/22/21 07:44 98 H 22 92 02/22/21 06:05 37.8 C H 96 H 19 88/54 L 91 02/22/21 05:01 38.1 C H 98 H 24 113/50 L 93 02/22/21 03:01 38.4 C H 104 H 20 129/64 93 02/22/21 01:00 37.8 C H 102 H 23 144/66 H 89 L Laboratory Results 02/22/21 02/22/21 02/22/21 Range/Units 11:58 11:51 05:37 WBC (4.8-10.8) K/uL RBC (4.7-6.1) M/uL Hgb (14.0-18.0) g/dL Hct (42-52) % MCV (80-100) fL MCH (25-34) pg MCHC (32-36) g/dL RDW Std Deviation (36.4-46.3) fL RDW Coeff of Aysha (11.5-14.5) % Plt Count (130-400) K/uL MPV (7.4-10.4) fL Immature Gran % (Auto) % Neut % (Auto) % Lymph % (Auto) % Lee % (Auto) % Eos % (Auto) % Baso % (Auto) % Neut # (Auto) (1.4-6.5) K/uL Lymph # (Auto) (1.2-3.4) K/uL Lee # (Auto) (0.11-0.59) K/uL Eos # (Auto) (0-0.5) K/uL Baso # (Auto) (0-0.2) K/uL Immature Gran # (Auto) (0.00-0.02) K/uL Absolute Nucleated RBC (0-0) K/uL Nucleated RBC % (auto) % ESR (0-14) mm/hr PT (9.0-12.0) Seconds INR (0.9-1.1) APTT PTT Ratio ABG pH (7.35-7.45) ABG pCO2 (35-46) mmHg ABG pO2 (80-95) mmHg ABG HCO3 (19-24) mmol/L ABG O2 Saturation (90-95) % ABG Base Excess (-9-1.8) mEq/L Tevin Test (Pos) Barometric Pressure mm/Hg Oxygen Given Sodium (136-145) mmol/L Potassium (3.5-5.1) mmol/L Chloride (98-107) mmol/L Carbon Dioxide (21-32) mmol/L Anion Gap (3-11) BUN (7-18) mg/dl Creatinine (0.6-1.4) mg/dl Est Cr Clr Drug Dosing ml/min Est GFR ( Amer) Est GFR (Non-Af Amer) BUN/Creatinine Ratio (10-20) Glucose (70-99) mg/dl POC Glucose 110 H 116 H 122 H (70-99) mg/dl Lactate (0.4-2.0) mmol/L Calcium (8.5-10.1) mg/dl Phosphorus (2.5-4.9) mg/dl Magnesium (1.8-2.4) mg/dl Total Bilirubin (0.2-1) mg/dl AST (15-37) U/L ALT (12-78) U/L Alkaline Phosphatase (45-117) U/L C-Reactive Protein (0-0.29) mg/dl Total Protein (6.4-8.2) gm/dl Albumin (3.4-5.0) gm/dl Globulin (2.5-4.0) gm/dl Albumin/Globulin Ratio (0.9-2) Procalcitonin (0-0.5) ng/ml Random Vancomycin mcg/ml 02/22/21 02/22/21 02/22/21 Range/Units 04:47 04:47 04:47 WBC 17.97 H (4.8-10.8) K/uL RBC 2.99 L (4.7-6.1) M/uL Hgb 8.1 L (14.0-18.0) g/dL Hct 28.7 L (42-52) % MCV 96.0 (80-100) fL MCH 27.1 (25-34) pg MCHC 28.2 L (32-36) g/dL RDW Std Deviation 63.7 H (36.4-46.3) fL RDW Coeff of Aysha 18.8 H (11.5-14.5) % Plt Count 339 (130-400) K/uL MPV 8.9 (7.4-10.4) fL Immature Gran % (Auto) 0.6 % Neut % (Auto) 85.9 % Lymph % (Auto) 7.7 % Lee % (Auto) 4.8 % Eos % (Auto) 0.7 % Baso % (Auto) 0.3 % Neut # (Auto) 15.45 H (1.4-6.5) K/uL Lymph # (Auto) 1.38 (1.2-3.4) K/uL Lee # (Auto) 0.86 H (0.11-0.59) K/uL Eos # (Auto) 0.13 (0-0.5) K/uL Baso # (Auto) 0.05 (0-0.2) K/uL Immature Gran # (Auto) 0.10 H (0.00-0.02) K/uL Absolute Nucleated RBC 0.07 H (0-0) K/uL Nucleated RBC % (auto) 0.4 % ESR (0-14) mm/hr PT 13.4 H (9.0-12.0) Seconds INR 1.4 H (0.9-1.1) APTT 49.4 H* PTT Ratio 1.9 ABG pH (7.35-7.45) ABG pCO2 (35-46) mmHg ABG pO2 (80-95) mmHg ABG HCO3 (19-24) mmol/L ABG O2 Saturation (90-95) % ABG Base Excess (-9-1.8) mEq/L Tevin Test (Pos) Barometric Pressure mm/Hg Oxygen Given Sodium (136-145) mmol/L Potassium (3.5-5.1) mmol/L Chloride (98-107) mmol/L Carbon Dioxide (21-32) mmol/L Anion Gap (3-11) BUN (7-18) mg/dl Creatinine (0.6-1.4) mg/dl Est Cr Clr Drug Dosing ml/min Est GFR ( Amer) Est GFR (Non-Af Amer) BUN/Creatinine Ratio (10-20) Glucose (70-99) mg/dl POC Glucose (70-99) mg/dl Lactate (0.4-2.0) mmol/L Calcium (8.5-10.1) mg/dl Phosphorus (2.5-4.9) mg/dl Magnesium (1.8-2.4) mg/dl Total Bilirubin (0.2-1) mg/dl AST (15-37) U/L ALT (12-78) U/L Alkaline Phosphatase (45-117) U/L C-Reactive Protein (0-0.29) mg/dl Total Protein (6.4-8.2) gm/dl Albumin (3.4-5.0) gm/dl Globulin (2.5-4.0) gm/dl Albumin/Globulin Ratio (0.9-2) Procalcitonin (0-0.5) ng/ml Random Vancomycin 27.5 mcg/ml 02/22/21 02/22/21 02/21/21 Range/Units 04:47 00:00 20:49 WBC (4.8-10.8) K/uL RBC (4.7-6.1) M/uL Hgb (14.0-18.0) g/dL Hct (42-52) % MCV (80-100) fL MCH (25-34) pg MCHC (32-36) g/dL RDW Std Deviation (36.4-46.3) fL RDW Coeff of Aysha (11.5-14.5) % Plt Count (130-400) K/uL MPV (7.4-10.4) fL Immature Gran % (Auto) % Neut % (Auto) % Lymph % (Auto) % Lee % (Auto) % Eos % (Auto) % Baso % (Auto) % Neut # (Auto) (1.4-6.5) K/uL Lymph # (Auto) (1.2-3.4) K/uL Lee # (Auto) (0.11-0.59) K/uL Eos # (Auto) (0-0.5) K/uL Baso # (Auto) (0-0.2) K/uL Immature Gran # (Auto) (0.00-0.02) K/uL Absolute Nucleated RBC (0-0) K/uL Nucleated RBC % (auto) % ESR (0-14) mm/hr PT (9.0-12.0) Seconds INR (0.9-1.1) APTT 62.1 H* PTT Ratio 2.4 ABG pH (7.35-7.45) ABG pCO2 (35-46) mmHg ABG pO2 (80-95) mmHg ABG HCO3 (19-24) mmol/L ABG O2 Saturation (90-95) % ABG Base Excess (-9-1.8) mEq/L Tevin Test (Pos) Barometric Pressure mm/Hg Oxygen Given Sodium 133 L (136-145) mmol/L Potassium 4.3 (3.5-5.1) mmol/L Chloride 101 (98-107) mmol/L Carbon Dioxide 27 (21-32) mmol/L Anion Gap 5.0 (3-11) BUN 33 H D (7-18) mg/dl Creatinine 4.68 H* D (0.6-1.4) mg/dl Est Cr Clr Drug Dosing 19.9 ml/min Est GFR ( Amer) 13.8 Est GFR (Non-Af Amer) 11.9 BUN/Creatinine Ratio 7.0 L (10-20) Glucose 110 H (70-99) mg/dl POC Glucose 112 H (70-99) mg/dl Lactate (0.4-2.0) mmol/L Calcium 8.0 L (8.5-10.1) mg/dl Phosphorus 5.4 H D (2.5-4.9) mg/dl Magnesium 2.6 H (1.8-2.4) mg/dl Total Bilirubin 0.5 (0.2-1) mg/dl AST 44 H (15-37) U/L ALT 46 (12-78) U/L Alkaline Phosphatase 110 (45-117) U/L C-Reactive Protein (0-0.29) mg/dl Total Protein 7.4 (6.4-8.2) gm/dl Albumin 2.5 L (3.4-5.0) gm/dl Globulin 4.9 H (2.5-4.0) gm/dl Albumin/Globulin Ratio 0.5 L (0.9-2) Procalcitonin (0-0.5) ng/ml Random Vancomycin mcg/ml 02/21/21 02/21/21 02/21/21 Range/Units 17:56 14:21 13:22 WBC (4.8-10.8) K/uL RBC (4.7-6.1) M/uL Hgb (14.0-18.0) g/dL Hct (42-52) % MCV (80-100) fL MCH (25-34) pg MCHC (32-36) g/dL RDW Std Deviation (36.4-46.3) fL RDW Coeff of Aysha (11.5-14.5) % Plt Count (130-400) K/uL MPV (7.4-10.4) fL Immature Gran % (Auto) % Neut % (Auto) % Lymph % (Auto) % Lee % (Auto) % Eos % (Auto) % Baso % (Auto) % Neut # (Auto) (1.4-6.5) K/uL Lymph # (Auto) (1.2-3.4) K/uL Lee # (Auto) (0.11-0.59) K/uL Eos # (Auto) (0-0.5) K/uL Baso # (Auto) (0-0.2) K/uL Immature Gran # (Auto) (0.00-0.02) K/uL Absolute Nucleated RBC (0-0) K/uL Nucleated RBC % (auto) % ESR 43 H (0-14) mm/hr PT (9.0-12.0) Seconds INR (0.9-1.1) APTT 90.2 H* PTT Ratio 3.4 ABG pH (7.35-7.45) ABG pCO2 (35-46) mmHg ABG pO2 (80-95) mmHg ABG HCO3 (19-24) mmol/L ABG O2 Saturation (90-95) % ABG Base Excess (-9-1.8) mEq/L Tevin Test (Pos) Barometric Pressure mm/Hg Oxygen Given Sodium (136-145) mmol/L Potassium (3.5-5.1) mmol/L Chloride (98-107) mmol/L Carbon Dioxide (21-32) mmol/L Anion Gap (3-11) BUN (7-18) mg/dl Creatinine (0.6-1.4) mg/dl Est Cr Clr Drug Dosing ml/min Est GFR ( Amer) Est GFR (Non-Af Amer) BUN/Creatinine Ratio (10-20) Glucose (70-99) mg/dl POC Glucose 103 H (70-99) mg/dl Lactate (0.4-2.0) mmol/L Calcium (8.5-10.1) mg/dl Phosphorus (2.5-4.9) mg/dl Magnesium (1.8-2.4) mg/dl Total Bilirubin (0.2-1) mg/dl AST (15-37) U/L ALT (12-78) U/L Alkaline Phosphatase (45-117) U/L C-Reactive Protein (0-0.29) mg/dl Total Protein (6.4-8.2) gm/dl Albumin (3.4-5.0) gm/dl Globulin (2.5-4.0) gm/dl Albumin/Globulin Ratio (0.9-2) Procalcitonin (0-0.5) ng/ml Random Vancomycin mcg/ml 02/21/21 02/21/21 02/21/21 Range/Units 13:19 13:19 13:19 WBC 11.71 H (4.8-10.8) K/uL RBC 2.97 L (4.7-6.1) M/uL Hgb 8.2 L (14.0-18.0) g/dL Hct 27.8 L (42-52) % MCV 93.6 (80-100) fL MCH 27.6 (25-34) pg MCHC 29.5 L (32-36) g/dL RDW Std Deviation 61.6 H (36.4-46.3) fL RDW Coeff of Aysha 18.3 H (11.5-14.5) % Plt Count 358 (130-400) K/uL MPV 8.3 (7.4-10.4) fL Immature Gran % (Auto) 0.3 % Neut % (Auto) 87.0 % Lymph % (Auto) 7.4 % Lee % (Auto) 4.2 % Eos % (Auto) 0.8 % Baso % (Auto) 0.3 % Neut # (Auto) 10.20 H (1.4-6.5) K/uL Lymph # (Auto) 0.87 L (1.2-3.4) K/uL Lee # (Auto) 0.49 (0.11-0.59) K/uL Eos # (Auto) 0.09 (0-0.5) K/uL Baso # (Auto) 0.03 (0-0.2) K/uL Immature Gran # (Auto) 0.03 H (0.00-0.02) K/uL Absolute Nucleated RBC (0-0) K/uL Nucleated RBC % (auto) % ESR (0-14) mm/hr PT (9.0-12.0) Seconds INR (0.9-1.1) APTT PTT Ratio ABG pH (7.35-7.45) ABG pCO2 (35-46) mmHg ABG pO2 (80-95) mmHg ABG HCO3 (19-24) mmol/L ABG O2 Saturation (90-95) % ABG Base Excess (-9-1.8) mEq/L Tevin Test (Pos) Barometric Pressure mm/Hg Oxygen Given Sodium 135 L (136-145) mmol/L Potassium 3.8 D (3.5-5.1) mmol/L Chloride 101 (98-107) mmol/L Carbon Dioxide 29 (21-32) mmol/L Anion Gap 5.0 (3-11) BUN 20 H D (7-18) mg/dl Creatinine 3.30 H D (0.6-1.4) mg/dl Est Cr Clr Drug Dosing 28.1 ml/min Est GFR ( Amer) 21.1 Est GFR (Non-Af Amer) 18.2 BUN/Creatinine Ratio 6.2 L (10-20) Glucose 104 H (70-99) mg/dl POC Glucose (70-99) mg/dl Lactate (0.4-2.0) mmol/L Calcium 8.4 L (8.5-10.1) mg/dl Phosphorus (2.5-4.9) mg/dl Magnesium (1.8-2.4) mg/dl Total Bilirubin 0.5 (0.2-1) mg/dl AST 13 L (15-37) U/L ALT 22 (12-78) U/L Alkaline Phosphatase 111 (45-117) U/L C-Reactive Protein 9.45 H (0-0.29) mg/dl Total Protein 7.8 (6.4-8.2) gm/dl Albumin 2.9 L (3.4-5.0) gm/dl Globulin 4.9 H (2.5-4.0) gm/dl Albumin/Globulin Ratio 0.6 L (0.9-2) Procalcitonin 4.32 H (0-0.5) ng/ml Random Vancomycin mcg/ml 02/21/21 02/21/21 02/21/21 Range/Units 13:19 13:18 13:16 WBC (4.8-10.8) K/uL RBC (4.7-6.1) M/uL Hgb (14.0-18.0) g/dL Hct (42-52) % MCV (80-100) fL MCH (25-34) pg MCHC (32-36) g/dL RDW Std Deviation (36.4-46.3) fL RDW Coeff of Aysha (11.5-14.5) % Plt Count (130-400) K/uL MPV (7.4-10.4) fL Immature Gran % (Auto) % Neut % (Auto) % Lymph % (Auto) % Lee % (Auto) % Eos % (Auto) % Baso % (Auto) % Neut # (Auto) (1.4-6.5) K/uL Lymph # (Auto) (1.2-3.4) K/uL Lee # (Auto) (0.11-0.59) K/uL Eos # (Auto) (0-0.5) K/uL Baso # (Auto) (0-0.2) K/uL Immature Gran # (Auto) (0.00-0.02) K/uL Absolute Nucleated RBC (0-0) K/uL Nucleated RBC % (auto) % ESR (0-14) mm/hr PT (9.0-12.0) Seconds INR (0.9-1.1) APTT Cancelled PTT Ratio Cancelled ABG pH 7.37 (7.35-7.45) ABG pCO2 51 H (35-46) mmHg ABG pO2 69 L (80-95) mmHg ABG HCO3 29 H (19-24) mmol/L ABG O2 Saturation 90.0 (90-95) % ABG Base Excess 3.1 H (-9-1.8) mEq/L Tevin Test Pos (Pos) Barometric Pressure 733.6 mm/Hg Oxygen Given 5L Sodium (136-145) mmol/L Potassium (3.5-5.1) mmol/L Chloride (98-107) mmol/L Carbon Dioxide (21-32) mmol/L Anion Gap (3-11) BUN (7-18) mg/dl Creatinine (0.6-1.4) mg/dl Est Cr Clr Drug Dosing ml/min Est GFR ( Amer) Est GFR (Non-Af Amer) BUN/Creatinine Ratio (10-20) Glucose (70-99) mg/dl POC Glucose (70-99) mg/dl Lactate 1.7 (0.4-2.0) mmol/L Calcium (8.5-10.1) mg/dl Phosphorus (2.5-4.9) mg/dl Magnesium (1.8-2.4) mg/dl Total Bilirubin (0.2-1) mg/dl AST (15-37) U/L ALT (12-78) U/L Alkaline Phosphatase (45-117) U/L C-Reactive Protein (0-0.29) mg/dl Total Protein (6.4-8.2) gm/dl Albumin (3.4-5.0) gm/dl Globulin (2.5-4.0) gm/dl Albumin/Globulin Ratio (0.9-2) Procalcitonin (0-0.5) ng/ml Random Vancomycin mcg/ml 02/21/21 Range/Units 12:43 WBC (4.8-10.8) K/uL RBC (4.7-6.1) M/uL Hgb (14.0-18.0) g/dL Hct (42-52) % MCV (80-100) fL MCH (25-34) pg MCHC (32-36) g/dL RDW Std Deviation (36.4-46.3) fL RDW Coeff of Aysha (11.5-14.5) % Plt Count (130-400) K/uL MPV (7.4-10.4) fL Immature Gran % (Auto) % Neut % (Auto) % Lymph % (Auto) % Lee % (Auto) % Eos % (Auto) % Baso % (Auto) % Neut # (Auto) (1.4-6.5) K/uL Lymph # (Auto) (1.2-3.4) K/uL Lee # (Auto) (0.11-0.59) K/uL Eos # (Auto) (0-0.5) K/uL Baso # (Auto) (0-0.2) K/uL Immature Gran # (Auto) (0.00-0.02) K/uL Absolute Nucleated RBC (0-0) K/uL Nucleated RBC % (auto) % ESR (0-14) mm/hr PT (9.0-12.0) Seconds INR (0.9-1.1) APTT PTT Ratio ABG pH (7.35-7.45) ABG pCO2 (35-46) mmHg ABG pO2 (80-95) mmHg ABG HCO3 (19-24) mmol/L ABG O2 Saturation (90-95) % ABG Base Excess (-9-1.8) mEq/L Tevin Test (Pos) Barometric Pressure mm/Hg Oxygen Given Sodium (136-145) mmol/L Potassium (3.5-5.1) mmol/L Chloride (98-107) mmol/L Carbon Dioxide (21-32) mmol/L Anion Gap (3-11) BUN (7-18) mg/dl Creatinine (0.6-1.4) mg/dl Est Cr Clr Drug Dosing ml/min Est GFR ( Amer) Est GFR (Non-Af Amer) BUN/Creatinine Ratio (10-20) Glucose (70-99) mg/dl POC Glucose 109 H (70-99) mg/dl Lactate (0.4-2.0) mmol/L Calcium (8.5-10.1) mg/dl Phosphorus (2.5-4.9) mg/dl Magnesium (1.8-2.4) mg/dl Total Bilirubin (0.2-1) mg/dl AST (15-37) U/L ALT (12-78) U/L Alkaline Phosphatase (45-117) U/L C-Reactive Protein (0-0.29) mg/dl Total Protein (6.4-8.2) gm/dl Albumin (3.4-5.0) gm/dl Globulin (2.5-4.0) gm/dl Albumin/Globulin Ratio (0.9-2) Procalcitonin (0-0.5) ng/ml Random Vancomycin mcg/ml PG Care Time/CCT Total # of Minutes Spent Total Time Spent with Patient: Total time spent is greater than 50% in coordination of care (as documented) at patient's floor/unit and/or counseling patient: Coding Level of Care Code 75545 Subseq Hosp Care Lvl 3 Diagnoses DVT (deep venous thrombosis) I82.621 Affected thrombotic vein of extremity: unspecified vein of extremity Chronicity: acute DVT location: upper extremity Laterality: right Acute metabolic encephalopathy G93.41 Hypoxia R09.02 Sepsis A41.9 Weakness R53.1 ESRD (end stage renal disease) on dialysis N18.6; Z99.2 Anemia D64.9 COPD (chronic obstructive pulmonary disease) J44.9 COPD type: unspecified COPD JORDAN treated with BiPAP G47.33 Afib I48.0 Atrial fibrillation type: paroxysmal Chronic respiratory failure with hypoxia J96.11 Neuropathy G62.9 Ryan esophagus K22.70 Constipation K59.00 Critical illness myopathy G72.81 Morbid obesity E66.01 (1) DVT (deep venous thrombosis) Affected thrombotic vein of extremity: unspecified vein of extremity Chronicity: acute DVT location: upper extremity Laterality: right Qualified Code(s): I82.621 - Acute embolism and thrombosis of deep veins of right upper extremity (2) COPD (chronic obstructive pulmonary disease) COPD type: unspecified COPD Qualified Code(s): J44.9 - Chronic obstructive pulmonary disease, unspecified (3) Afib Atrial fibrillation type: paroxysmal Qualified Code(s): I48.0 - Paroxysmal atrial fibrillation
[2021-02-22] MEDS ORDERED: CEFEPIME 1,000 MG in SYRINGE 0 ML IV SCH (13:15)
--- NOTE | 2021-02-22 13:34 | Critical Care Progress Note ---
Date of Service February 22, 2021 Assessment & Plan (1) Sepsis: Chest x-ray 02/01/2021 personally reviewed: Portable film, poor inspiratory effort, bilateral costophrenic angles are blunted, increased cardiac silhouette, right-sided permacath visualized, no clear infiltrate appreciated. --Sepsis Etiology is unclear Patient started to have fever and chills after dialysis Possibility of bacteremia is high especially given Pseudomonas pneumonia as well as MRSA pneumonia in the past ESR: 43, CRP: 9.45 Procalcitonin 4.32 COVID-19 PCR negative, influenza A/B negative Continue with vancomycin and cefepime Follow-up septic work-up Follow-up sputum culture --Acute metabolic encephalopathy Improved Likely secondary to sepsis Aspiration precautions If there is any compromise in the airway we will connect the patient to ventilator --Acute on chronic hypercapnic hypoxic respiratory failure Multifactorial Bilateral pleural effusion with fluid overload playing a role Along with sepsis Continue with O2 supplementation for the time being Patient's trach is capped. Can use BiPAP on top of it If the patient will go into respiratory distress will connect him to ventilator. --Acute DVT On heparin drip as a bridge to warfarin --End-stage renal disease on HD Nephrology on board --A. 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 --JORDAN Continue with BiPAP while in the hospital. --Prophylaxis VTE: Heparin drip GI: Lansoprazole Lines: Peripheral, right-sided permacath Diet: N.p.o. Plan: In/out: +1.5 L, no urine output as patient is end-stage renal disease Patient already on sevelamer for hyperphosphatemia Patient blood pressure is running on the lower side. We will give 5% albumin x1 If it is stable the lower side will put a central line and start the patient on vasopressors. Blood culture and sputum culture negative to date. Continue with broad-spectrum antibiotics. Keep O2 sats 88-92% BiPAP as needed. I have personally spent 38 minutes of critical care time in the direct nikki gement of this patient. This is a life/limb threatening event. This includes time spent evaluating patient, direct bedside care, chart review, placing orders, interpretation of diagnostic studies, discussion with consultants, patient, and family members, as well as other required patient management activities. This time is exclusive of all separately billable procedures, and teaching time and separate from and in addition to any other critical care service time. Please note the above document was generated using voice recognition software. It may contain grammatical, syntax or spelling errors. (2) Acute metabolic encephalopathy: (3) ESRD (end stage renal disease) on dialysis: (4) COPD (chronic obstructive pulmonary disease): (5) Acute on chronic respiratory failure with hypoxia and hypercapnia: (6) DVT (deep venous thrombosis): Admission and Anticipated Discharge Date Admission Date: February 18, 2021 Subjective Patient seen and examined at bedside. No acute distress. Patient still spiking fever it is less frequent as before. He is more alert today. He answers questions appropriately. Moves all extremities appropriately. Denies any chest pain, no shortness of breath. Denies any headache, no nausea or vomiting. Review of Systems Review of Systems: All systems reviewed & are unremarkable except as noted in Subjective Physical Exam Physical Exam: Constitutional: In distress secondary to fever HEENT: EOMI, PERRLA, size 6 fenestrated trach Respiratory system: Decreased air entry bilaterally, no wheeze, no rhonchi, positive crackles bilaterally CVS: S1-S2 positive, no murmurs or gallops, tachycardia Abdomen: Soft, nontender, nondistended, positive bowel sounds x4, obese, positive PEG Extremities: +2 pulses bilaterally radialis/ dorsalis pedis, no cyanosis, +2 pitting edema bilateral lower extremity Neuro: Awake alert oriented to self Psych: Normal mood and affect G/U: No Salguero Skin: no rashes, warm and dry Lymphatic: no cervical or axillary lymphadenopathy Results & Data Results & Data ([facility]) Vital Signs (Past 12 Hours) Vital Signs Temp Pulse Pulse Resp BP Pulse Ox 02/22/21 12:00 37.1 C 93 H 23 87/51 L 90 02/22/21 11:07 94 H 18 93 02/22/21 11:01 37.1 C 90 20 90 02/22/21 11:00 37.1 C 94 H 23 96/48 L 93 02/22/21 10:44 37.2 C 94 H 20 115/41 L 92 02/22/21 10:42 37.1 C 94 H 20 84/52 L 92 02/22/21 10:41 37.1 C 93 H 21 86/52 L 92 02/22/21 10:01 37.2 C 92 H 19 92 02/22/21 10:00 37.2 C 96 H 25 H 101/53 L 94 02/22/21 09:01 37.2 C 93 H 17 89 L 02/22/21 09:00 37.2 C 96 H 23 101/44 L 89 L 02/22/21 08:58 37.2 C 96 H 22 84/54 L 90 02/22/21 08:01 37.3 C 93 H 19 90 02/22/21 08:00 37.3 C 100 H 24 96/55 L 91 02/22/21 07:44 98 H 22 92 02/22/21 07:01 37.4 C 101 H 22 92 02/22/21 07:00 37.4 C 96 H 21 102/49 L 93 02/22/21 06:50 37.4 C 99 H 25 H 109/76 92 02/22/21 06:05 37.8 C H 96 H 19 88/54 L 91 02/22/21 05:01 38.1 C H 98 H 24 113/50 L 93 02/22/21 03:01 38.4 C H 104 H 20 129/64 93 02/22/21 04:47 02/22/21 04:47 Coding Level of Care Code Critical Care 1st 30-74 mins Diagnoses Sepsis A41.9 Acute metabolic encephalopathy G93.41 ESRD (end stage renal disease) on dialysis N18.6; Z99.2 COPD (chronic obstructive pulmonary disease) J44.9 COPD type: unspecified COPD Acute on chronic respiratory failure with hypoxia and hypercapnia J96.21; J96.22 DVT (deep venous thrombosis) I82.621 Affected thrombotic vein of extremity: unspecified vein of extremity Chronicity: acute DVT location: upper extremity Laterality: right Time Spent (min) 38 (1) COPD (chronic obstructive pulmonary disease) COPD type: unspecified COPD Qualified Code(s): J44.9 - Chronic obstructive pulmonary disease, unspecified (2) DVT (deep venous thrombosis) Affected thrombotic vein of extremity: unspecified vein of extremity Chronicity: acute DVT location: upper extremity Laterality: right Qualified Code(s): I82.621 - Acute embolism and thrombosis of deep veins of right upper extremity
[2021-02-22] MEDS: HEPARIN SODIUM/DEXTROSE 25,000 UNITS/500 ML BAG IV SCH ×3 (13:35→22:00)
[2021-02-22] MEDS ORDERED: STAT IV Infusion **Titration per Protocol STA (13:37)
[2021-02-22] MEDS ORDERED: NOREPINEPHRINE/D5W 8 MG/508 ML IV ONE (13:38)
[2021-02-22] MEDS: NOREPINEPHRINE/D5W 8 MG/508 ML BAG IV SCH (14:23)
--- NOTE | 2021-02-22 14:30 | Procedure Note ---
Procedure Note Date of Service February 22, 2021 Procedure: Inserting ultrasound-guided central door liner: Dr. Lee Ann Abdalla Indication: Hypotension Consent: Verbally obtained in the emergent circumstances. Anesthesia: 1% lidocaine without epinephrine local. Procedure: Consent was verified and timeout performed. Appropriate imaging studies were reviewed prior to the procedure. Under aseptic and sterile condition, left femoral vein was accessed under direct ultrasound guidance. Guidewire was confirmed to be within the lumen of vein with the help of ultrasound. Catheter was introduced via Seldinger technique. Guide a wire was removed. Good non-pulsatile blood flow was appreciated from all the ports. The catheter was placed at 24 cm and [address] in place. BioPatch was applied to the catheter and a sterile Tegaderm dressing was applied over the catheter with careful attention to sterility. Patient tolerated the procedure well. Blood loss: Less than 2 cc Complications: None Coding CPT Codes Tubes, Drains, and Vasc Access - Tubes, Drains, and Vasc Access: [id number] Place catheter in vein superior or inferior vena cava ([id number]) Tubes, Drains, and Vasc Access - Tubes, Drains, and Vasc Access: [id number] Ultrasound Guidance For Vascular ([id number]) [facility] [place] [place] Codes (Charges) Tubes, Drains, and Vasc Access Procedure 1: Tubes, Drains, and Vasc Access: [id number] Place catheter in vein superior or inferior vena cava Procedure 2: Tubes, Drains, and Vasc Access: [id number] Ultrasound Guidance For Vascular
[2021-02-22] MEDS: PIPERACILLIN/TAZOBACTAM 4.5 GM in DEXTROSE 5% 100 ML IV SCH (16:36)
[2021-02-22] MEDS: WARFARIN SOD 7.5 MG TAB PO SCH (16:36)
--- NOTE | 2021-02-22 21:30 | Procedure Note ---
Procedure Note Date of Service February 22, 2021 Note ARTERIAL LINE PROCEDURE NOTE: Procedure: Arterial Line Placement Attending: Dr. Lee Ann Abdalla Provider: SHANE Ludwig Indication: Monitoring on Pressors Anesthesia: Lidocaine 1% Patient is now shivering and we have been unable to obtain blood pressure per cuff with the patient undergoing infusion of Levophed as he is now in septic shock. Decision was made to emergently place a line. A time-out was completed verifying correct patient, procedure, site, positioning, and implant(s) or special equipment if applicable. Allens test was performed to ensure adequate perfusion. Patients right wrist was prepped and draped in the usual sterile fashion. Ultrasound guidance was used to aid needle placement. A 20g Arrow arterial line was introduced into the right radial artery. Catheter was threaded, and the needle was removed with appropriate blood return. Good waveform was observed. The patient tolerated the procedure well. Confirmation of placement with ultrasound. Blood Loss: Minimal Complications: None Procedural Ultrasound Guidance: Procedure Date: 02/22/2021 Indication: Arterial line insertion Attending: Dr. Lee Ann Abdalla Provider: SHANE Ludwig Artery Identified: YES Line confirmed in Artery with ultrasound: Yes Complications: NONE Patient tolerated procedure: WELL Coding CPT Codes Tubes, Drains, and Vasc Access - Tubes, Drains, and Vasc Access: [id number] Place Catheter In Artery ([id number]) Tubes, Drains, and Vasc Access - Tubes, Drains, and Vasc Access: [id number] Ultrasound Guidance For Vascular ([id number]) [facility] [place] (Charges) Tubes, Drains, and Vasc Access Procedure 3: Tubes, Drains, and Vasc Access: [id number] Place Catheter In Artery Procedure 4: Tubes, Drains, and Vasc Access: [id number] Ultrasound Guidance For Vascular
[2021-02-22] MEDS: ATORVASTATIN 10 MG TAB PO SCH (21:36)
[2021-02-22] MEDS ORDERED: FLUCONAZOLE 200 MG/100 ML BAG IV ONE (23:11)
[2021-02-23] MEDS: PIPERACILLIN/TAZOBACTAM 4.5 GM in DEXTROSE 5% 100 ML IV SCH ×2 (04:37→16:20)
[2021-02-23] MEDS: AMIODARONE 200 MG TAB PO SCH ×2 (04:37→16:20)
[2021-02-23] MEDS: HEPARIN SODIUM/DEXTROSE 25,000 UNITS/500 ML BAG IV SCH (04:37)
[2021-02-23 05:04] LABS: Basophils # (auto) 0.03 K/uL (0-0.2); Basophils % (auto) 0.2 %; Eosinophils # (auto) 0.49 K/uL (0-0.5); Eosinophils % (auto) 3.1 %; Hematocrit (blood only) 26.2 % (42-52); Hemoglobin 7.6 g/dL (14.0-18.0); Immature Granulocytes # (auto) 0.06 K/uL (0.00-0.02); Immature Granulocytes % (auto) 0.4 %; Lymphocytes % (auto) 11.2 %; Mean Corpuscular Hemoglobin 27.1 pg (25-34); Mean Corpuscular Volume 93.6 fL (80-100); Mean Platelet Volume 8.6 fL (7.4-10.4); Monocytes # (auto) 1.01 K/uL (0.11-0.59); Monocytes % (auto) 6.3 %; Neutrophils # (auto) 12.62 K/uL (1.4-6.5); Neutrophils % (auto) 78.8 %; Nucleated RBC # (auto) 0.06 K/uL (0-0); Nucleated RBC % (auto) 0.4 %; Platelet Count 346 K/uL (130-400); RDW Coefficient of Variation 18.9 % (11.5-14.5); RDW Standard Deviation 64.1 fL (36.4-46.3); White Blood Count 16.01 K/uL (4.8-10.8)
[2021-02-23 05:23] LABS: Basophilic Stippling 1+; Partial Thromboplastin Ratio 3.6; Polychromasia 1+; Stomatocytes 1+
[2021-02-23 05:25] LABS: Partial Thromboplastin Time 95.5 Seconds (21.0-31.0)
[2021-02-23 05:45] LABS: Albumin Globulin Ratio 0.5 (0.9-2); Albumin Level 2.4 gm/dl (3.4-5.0); BUN Creatinine Ratio 7.9 (10-20); Bilirubin,Total 0.5 mg/dl (0.2-1); Calcium 7.9 mg/dl (8.5-10.1); Creatinine Clr Calc Pharmacy 15.8 ml/min; Est GFR (African American) 10.5; Globulin 4.5 gm/dl (2.5-4.0); Potassium 4.3 mmol/L (3.5-5.1); Total Protein 6.9 gm/dl (6.4-8.2)
[2021-02-23] MEDS: IPRATROPIUM BROMIDE HFA INHALER INH SCH (07:16)
[2021-02-23] MEDS: ALBUTEROL HFA 8 GM INHALER INH SCH (07:16)
[2021-02-23] MEDS: SEVELAMER HCL 800 MG TABLET PO SCH ×4 (08:39→16:20)
[2021-02-23] MEDS: TUBE FEEDING WATER FLUSH GT SCH ×3 (08:39→23:47)
[2021-02-23] MEDS: LANSOPRAZOLE 30 MG SOLTAB PO SCH ×2 (08:41→20:44)
[2021-02-23] MEDS: DICLOFENAC SOD 1% GEL 100 GM TUBE EXT SCH ×3 (08:41→20:44)
[2021-02-23] MEDS: DOCUSATE SODIUM SYRUP 100 MG/10 ML UDC PO SCH ×2 (08:41→20:42)
[2021-02-23] MEDS: CHOLECALCIFEROL 1,000 UNITS 25 MCG TAB PO SCH (08:41)
[2021-02-23] MEDS: ASPIRIN 81 MG CHEW PO SCH (08:42)
[2021-02-23] MEDS ORDERED: CASPOFUNGIN 70 MG in SODIUM CHLORIDE 0.9% 250 ML IV ONE (09:45)
--- NOTE | 2021-02-23 10:25 | Nephrology Progress Note ---
Date of Service February 23, 2021 Assessment & Plan Admission and Anticipated Discharge Date Admission Date: February 18, 2021 Subjective (1) ESRD (end stage renal disease) on dialysis: had 1.2 lit UF Tuesday, goal decreased 2/2 hypotension. - maintains good saturation on 3 l, Not on vent - Electrolyte fine, - Discussed with ICU and decided to do dialysis and maybe max 1 uf. But given Sepsis and Hypercatabolic state better to do dialysis today regardless of UF. (2) DVT (deep venous thrombosis): Continue on current management (3) Sepsis: High WBC,with fever post HD yesterday, On abx Source unknown , Likely chest,But I would have low threshold for removing the TDC if continue to spike temperature, - Follow on blood culture and sputum culture. (4) Acute metabolic encephalopathy: Likely 2/2 sepsis Admission and Anticipated Discharge Date Admission Date: February 18, 2021 Subjective Shifted to ICU after c/o fever with rigors post HD, Review of Systems Review of Systems: Other Comfortable, no t in distress, alert and Orineted. Physical Exam Physical Exam: GENERAL: Not in distress, Obese, Alert. HEENT: Normocephalic, atraumatic. NECK: Mucous membrane is moist. He does have a tracheostomy. CHEST: Bilateral decreased breath sounds, poor inspiratory effort. No overt respiratory distress. He is on 3 liters oxygen, TDC exit site clean. CARDIOVASCULAR: Regular rate and rhythm. Does have chronic appearing edema with skin changes. No murmur. ABDOMEN: Obese, soft, nontender. EXTREMITIES: Shows edema which appears to be very chronic with chronic skin changes. PSYCHIATRIC: Normal mood and affect. Results & Data ([facility] [place]) Vital Signs (Past 12 Hours) Vital Signs Temp Pulse Pulse Resp Pulse Ox 02/23/21 07:16 93 H 20 93 02/23/21 06:00 37.2 C 97 H 23 94 02/23/21 05:30 37.2 C 96 H 22 95 02/23/21 05:00 37.2 C 96 H 24 94 02/23/21 04:30 37.3 C 96 H 24 94 02/23/21 04:00 37.3 C 96 H 18 95 02/23/21 03:30 37.4 C 93 H 18 96 02/23/21 03:00 37.4 C 95 H 25 H 93 02/23/21 02:30 37.4 C 96 H 24 92 02/23/21 02:00 37.4 C 87 24 93 02/23/21 01:30 37.5 C 94 H 21 98 02/23/21 01:06 96 H 23 94 02/23/21 01:00 37.4 C 96 H 23 94 02/23/21 00:30 37.4 C 97 H 22 94 02/23/21 00:00 37.5 C 96 H 25 H 93 02/22/21 23:30 37.5 C 98 H 24 93 02/22/21 23:00 37.6 C H 94 H 18 91 02/22/21 22:45 98 02/22/21 22:30 37.6 C H 92 H 23 97
[2021-02-23] MEDS ORDERED: SODIUM CHLORIDE 0.9% 1000ML 1,000 ML IV PRN (10:30)
[2021-02-23 10:46] LABS: Hematocrit (blood only) 26.3 % (42-52); Hemoglobin 7.8 g/dL (14.0-18.0)
[2021-02-23] MEDS ORDERED: EPOETIN ALFA 10,000 UNITS/ML VIAL IV SCH (11:00)
--- NOTE | 2021-02-23 11:05 | Pharmacy Report ---
Pharmacy Abx Dose Short Note - Date of Service February 23, 2021 - Assessment & Plan Assessment * 70 year old M with significant PMH including prolonged recent hospitalization @ OSH in November with ICU stay for COPD exacerbation / MRSA PNA followed by LTAC stay now admitted for VTE and sepsis. Trach and PEG are in place as well as THC from prior admission. Broad spectrum abx initiated on admission. He continues on vancomycin + zosyn at this time - dosing per Pharm consult. * Yeast growing in 2 of 2 BLCXs, caspofungin started this AM due to critical illness (fluconazole d/c'd). * There may be plans to remove THC. * Low dose norepi continues for pressor support. Plan Vancomycin * Random AM level supratherapeutic at 25 mcg/mL this AM * HD has been ordered today. No additional vancomycin needed today however as level is unlikely to fall below 15 following HD session. Will check level w/ AM labs tomorrow to assess clearance. Plan to redose when level 15-20mcg/mL or less. Zosyn * eCrCl < 20, HD dependent: continue 4.5gm ext-infusion dosing Q 12 hrs Pharmacy will continue to follow and will adjust dose/frequency as necessary. Thank you.
--- NOTE | 2021-02-23 11:22 | CT Scan Report ---
CT OF THE HEAD WITHOUT CONTRAST CLINICAL HISTORY: Altered mental status. Evaluate for stroke. COMPARISON STUDY: No previous studies for comparison. TECHNIQUE: Helical axial images of the head were obtained without IV contrast. Automated exposure con trol was utilized for the study. A dose lowering technique was utilized adhering to the principles o f ALARA. FINDINGS: No acute intracranial hemorrhage, midline shift or mass effect is present. The ventricular system is unremarkable. The basal cisterns are patent. No extra-axial collections are present. There are no findings to suggest acute dural sinus thrombosis or acute territorial infarct. No significant calvarial abnormalities are present. Right mastoid air cells are partially opacified. This exam is mi ldly compromised by artifact. IMPRESSION: 1. No acute intracranial findings. Exam mildly compromised by artifact. 2. Partially opacified right mastoid air cells. ACT 112: Negative or not required by law. Electronically signed by: Aryan Newman M.D. 02/23/2021 11:21 AM
--- NOTE | 2021-02-23 11:43 | Critical Care Progress Note ---
Date of Service February 23, 2021 Assessment & Plan (1) Sepsis: Neurologic: Acute encephalopathy likely secondary to metabolic issues. CT head with no evidence of acute intracranial findings. Partially opacified right mastoid air cells noted. Pulmonary: Oxygenating well on 6 L of oxygen. If ventilation becomes an issue, may have to consider changing to a cuffed trach. Chest x-ray with findings concerning for pulmonary edema and small bilateral effusions. Abdominal CT was reviewed and lower lung sieegl were noted to have atelectasis and small pleural effusions. Cardiovascular: Patient continues to be hypotensive likely secondary to sepsis. Central line is in place and patient has Levophed infusing. Midodrine 5 mg 3 times daily has been started. Continue amiodarone for history of atrial fibrillation. He is currently on a heparin drip with a warfarin bridge. He had a recent DVT during his last hospitalization at [facility]. Gastrointestinal: PEG tube in place, but holding tube feeds given escalating requirements of pressors. N.p.o. Start pantoprazole for GI prophylaxis Renal: Going to attempt HD today without pulling any volume. Discussed with nephrology. Starting phosphorus binders. Low mean arterial pressure may preclude hemodialysis. May require transfer to tertiary center for CRRT if he becomes more hypotensive with increasing hypoxia. Infectious disease: Blood cultures growing yeast. Will consult infectious disease. Repeat surveillance cultures ordered. Antifungals changed from fluconazole to caspofungin 02/23/2021. May need to be tunneled dialysis catheter removed. Pending IDs recommendations. CT abdomen pelvis without contrast ordered no significant intra-abdominal pathology seen. 3.6 cm infrarenal abdominal aortic aneurysm noted. Hematologic: Anemia of chronic disease. Hemoglobin appears stable on follow-up CBC. Endocrine: Hyperglycemia management with the assistance of pharmacy. VTE prophylaxis: Heparin drip CODE STATUS: Full code Family at bedside: Not available due to the COVID-19 pandemic Disposition: Remain in ICU I have personally spent 42 minutes of critical care time in the direct management of this patient. This is a life/limb threatening event. This includes time spent evaluating patient, direct bedside care, chart review, placing orders, interpretation of diagnostic studies, discussion with consultants, patient, and family members, as well as other required patient management activities. This time is exclusive of all separately billable procedures, and teaching time and separate from and in addition to any other critical care service time. Thank you for allowing us to participate in the care of this patient. (2) Acute metabolic encephalopathy: (3) ESRD (end stage renal disease) on dialysis: (4) COPD (chronic obstructive pulmonary disease): (5) Acute on chronic respiratory failure with hypoxia and hypercapnia: (6) DVT (deep venous thrombosis): Admission and Anticipated Discharge Date Admission Date: February 18, 2021 Subjective Patient discussed on interdisciplinary rounds today. Patient with encephalopathy today and unable to answer any questions appropriately. He c ontinues to be hypotensive and requiring escalating doses of Levophed. Review of Systems Review of Systems: Unobtainable due to cognitive status Physical Exam Physical Exam: Constitutional: In distress secondary to fever HEENT: EOMI, PERRLA, size 6 fenestrated trach Respiratory system: Decreased air entry bilaterally, no wheeze, no rhonchi, positive crackles bilaterally CVS: S1-S2 positive, no murmurs or gallops, tachycardia Abdomen: Soft, nontender, nondistended, positive bowel sounds x4, obese, positive PEG Extremities: +2 pulses bilaterally radialis/ dorsalis pedis, no cyanosis, +2 pitting edema bilateral lower extremity Neuro: Awake alert oriented to self Psych: Normal mood and affect G/U: No Salguero Skin: no rashes, warm and dry Lymphatic: no cervical or axillary lymphadenopathy Results & Data Results & Data ([facility]) Vital Signs (Past 12 Hours) Vital Signs Temp Pulse Pulse Resp Pulse Ox 02/23/21 11:13 94 H 22 90 02/23/21 11:12 94 H 21 90 02/23/21 11:06 98 H 02/23/21 10:30 98.4 F 91 H 21 94 02/23/21 10:00 98.6 F 92 H 22 94 02/23/21 09:30 98.6 F 91 H 22 94 02/23/21 09:00 98.6 F 90 20 93 02/23/21 08:30 98.6 F 91 H 19 92 02/23/21 08:00 98.6 F 89 20 93 02/23/21 07:16 93 H 20 93 02/23/21 06:00 99.0 F 97 H 23 94 02/23/21 05:30 99.0 F 96 H 22 95 02/23/21 05:00 99.0 F 96 H 24 94 03/29/21 04:30 99.1 F 96 H 24 94 02/23/21 04:00 99.1 F 96 H 18 95 02/23/21 03:30 99.3 F 93 H 18 96 02/23/21 03:00 99.3 F 95 H 25 H 93 02/23/21 02:30 99.3 F 96 H 24 92 02/23/21 02:00 99.3 F 87 24 93 02/23/21 01:30 99.5 F 94 H 21 98 02/23/21 01:06 96 H 23 94 02/23/21 01:00 99.3 F 96 H 23 94 02/23/21 00:30 99.3 F 97 H 22 94 02/23/21 00:00 99.5 F 96 H 25 H 93 I reviewed the vital signs, labs and imaging. Reviewed the relevant note. I discussed with nephrology attending and we will pursue dialysis without removing any fluid. Coding Level of Care Code Critical Care 1st 30-74 mins Diagnoses Sepsis A41.9 Acute metabolic encephalopathy G93.41 ESRD (end stage renal disease) on dialysis N18.6; Z99.2 COPD (chronic obstructive pulmonary disease) J44.9 COPD type: unspecified COPD Acute on chronic respiratory failure with hypoxia and hypercapnia J96.21; J96.22 DVT (deep venous thrombosis) I82.621 Affected thrombotic vein of extremity: unspecified vein of extremity Chronicity: acute DVT location: upper extremity Laterality: right Time Spent (min) 42 (1) COPD (chronic obstructive pulmonary disease) COPD type: unspecified COPD Qualified Code(s): J44.9 - Chronic obstructive pulmonary disease, unspecified (2) DVT (deep venous thrombosis) Affected thrombotic vein of extremity: unspecified vein of extremity Chronicity: acute DVT location: upper extremity Laterality: right Qualified Code(s): I82.621 - Acute embolism and thrombosis of deep veins of right upper extremity
[2021-02-23] MEDS: CALCIUM CARBONATE 1,250 MG/5 ML UDC PO SCH ×2 (11:48→16:19)
[2021-02-23] MEDS: MIDODRINE HCL 2.5 MG TAB PO SCH ×2 (11:48→16:19)
--- NOTE | 2021-02-23 11:52 | CT Scan Report ---
ABDOMEN AND PELVIS CT WITHOUT CONTRAST CT DOSE: 2923.57 mGy.cm HISTORY: Generalized abdominal pain. TECHNIQUE: Multiaxial CT images of the abdomen and pelvis were performed without contrast. A dose lo wering technique was utilized adhering to the principles of ALARA. COMPARISON STUDY: None. FINDINGS: Trace bilateral pleural effusions with diffuse interstitial thickening and mild cardiomegaly. This bui ggests mild interstitial pulmonary edema. There are lobular and irregular bibasilar densities most pr onounced on the left. This favors atelectasis and/or pneumonia. No pneumoperitoneum. No pneumatosis. Moderate degenerative changes within the bilateral hips. No suspicious lytic or blastic osseous lesio ns. A percutaneous gastrostomy tube is in good position. Mild hepatic steatosis. The gallbladder, murry creas, spleen, and adrenal glands are unremarkable. There are few mildly enlarged periportal lymph no kasie. Dominant lymph node measures 1.4 cm in short axis diameter. Mild bilateral perinephric edema. Th is is likely chronic. There is a 1.2 cm exophytic hypodense lesion within the right kidney. This is i ncompletely characterized on this noncontrast study but statistically represents a cyst. There are fe w punctate bilateral renal calculi. No ureteral stones. No hydronephrosis. Bladder wall thickening is likely due to underdistention. Mild aneurysmal dilatation of the abdominal aorta measuring up to 3.6 cm in diameter. There is a left femoral central venous catheter which terminates in the left common iliac vein. Small fat-containing bilateral inguinal hernias. No retroperitoneal lymphadenopathy. A re ctal catheter is noted. Moderate well-formed stool seen within the distal colon and rectum. A few sca ttered colonic diverticula. No evidence for acute diverticulitis. No definite bowel wall thickening o r obstruction. Normal appendix. The prostate gland is normal in size. IMPRESSION: 1. Trace bilateral pleural effusions with diffuse interstitial thickening and mild cardiomegaly. This likely represents mild interstitial pulmonary edema. 2. Lobular and irregular bibasilar densities most pronounced within the left lung. This favors atelec tasis and/or pneumonia. However, [address] follow-up recommended to ensure resolution of the l obular appearing left lung base opacities. 3. No definite bowel wall thickening or obstruction. 4. Normal appendix. 5. Hepatic steatosis. 6. A 3.6 cm infrarenal abdominal aortic aneurysm. 7. Bladder wall thickening. This may be due to underdistention. Recommend correlation with urinalysis . 8. Additional findings as described above. ACT 112: Positive. There are findings on this exam that require communication between the performing entity and the patient following Patient Test Result Information Act ([place] Act 112) guidelines. Electronically signed by: Vinayak Shepherd M.D. 02/23/2021 11:51 AM
--- NOTE | 2021-02-23 12:58 | Hospitalist Progress Note ---
Date of Service February 23, 2021 Assessment & Plan (1) DVT (deep venous thrombosis): Admitted initially for RLE DVT and then developed sepsis as below With a history of right upper extremity DVT during recent prolonged hospitalization which is now resolved Now with right lower extremity nonocclusive thrombus within the SFV - Patient reportedly had drop in HGB/HCT with Coumadin requiring transfusions and unable to verify if cause was identified, he was then on Apixaban 2.5 BID with ESRD on dialysis with new acute DVT found [facility]. -He is a dialysis patient and is unclear if the apixaban at that dose would be sufficient treatment -Continue Heparin drip and started Coumadin 7.5 mg p.o. once daily x4 days Follow daily PT/PTT/INR-INR 1.4 yesterday repeat INR tomorrow prior hospitalist discussed care with anticoagulation expert Dr. Houser who agrees with this plan (2) Acute metabolic encephalopathy: became altered and with fever, sepsis developing after return from HD on 02/21, with rigors with hypoxia to 80% on 4LNC and hypotension to the 80s Transferred to ICU on 02/21 MS improved today with resolution of fever. BPs today remain soft, needing midodrine/Levophed PCT elevated, lactate negative, ABG with normal pH and mildly elevated PaCO2 likely chronic retainer, CBC with worsening leukocytosis BCxs-NGTD but still early he is anuric so no UA CXR with ? PNA vs effusions and atelectasis but is more hypoxic than previous COuld be transient bacteremia from HD? -continue empiric Vanco (renally dosed with HD on random vanc levels, continue Zosyn (initially was on Cefepime) -has a h/o MRSA PNA as well as Pseudomonas -tylenol prn fevers -IV albumin given for hypotension -if persistent fevers or bacteremia, may need to remove TDC -follow CBC, CMP (3) Hypoxia: Acute on chronic resp failure with hypoxia-sats dropped to 80% on 4LNC while spiking fever on 02/[address] since Nov 2020 but is capped and uses at night for JORDAN? Also on 4LNC prior to recent ICU stay for MRSA PNA requiring 6L, 60% FiO2 today (4) Sepsis: as above in acute encephalopathy (5) Weakness: Chronic following prolonged ICU admission in Nov. X2 months. Likely with Critical illness myopathy - PT/OT consults placed - Continue nutritional support for muscle building - rehab and muscle strengthening Patient is able to tolerate pureed diet and for now does not need supplementation for calories and protein through his G-tube. Nutrition consulted. Appreciate their assistance. Added Boost TID (6) ESRD (end stage renal disease) on dialysis: Started on hemodialysis during recent prolonged hospitalization Is on a Tuesday schedule Missed dialysis on Tuesday, received dialysis 02/19 and then again on 02/21, then go back to Tuesday schedule Has RIJ TDC in place, now with sepsis as above may need to be removed if ends up with bacteremia BP too soft for UF, requiring pressors slight chance that he might need transferred to tertiary care for CRRT if fluid cannot be removed (7) Anemia: Hemoglobin very low at 7.3-7.5, now up to 7.8 No evidence of bleeding from anywhere, he denies any melena or hematochezia. He reports a history of indigestion and had an EGD and colonoscopy in [facility] September or October 2020 which showed Ryan's esophagus and one colon polyp-this was performed at [facility] -He could have had a stress ulcer given the recent prolonged ICU stay but there is no evidence of melena or acute GI bleeding -Provided with Venofer and Epogen with dialysis on 02/19 and again on 02/21 -Continue PPI (8) COPD (chronic obstructive pulmonary disease): Continue home Combivent nebs/inhalers, no acute issues - On 4 LNC chronic - Goal 88-92% spo2 -With tracheostomy in place, continue trach care today he is on 6L (9) JORDAN treated with BiPAP: Settings unable to verify- obese, tracheostomy, - titrate with respiratory therapy support - Auto-pap may support while in house if unable to dial in settings (10) Afib: Currently in NSR on Amiodarone Patient was unaware of this diagnosis, but did previously follow with a gastroenterology nurse practitioner prior to his hospitalization-Dr. Evans at [place] [facility] Perhaps this was found during his hospitalization and is lone Afib? 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, continue PPI -will need surveillance EGDs in the future (14) Constipation: Continue docusate (15) Critical illness myopathy: Very weak from 2 month ICU/LTACH stay continue daily PT/OT stood at bedside on 02/20 with PT eventually back to [facility] (16) Morbid obesity: BMI 41.6 Needs weight loss Disposition-continued stay in ICU, also until INR therapeutic with overlap with heparin drip, then return to acute rehab Admission and Anticipated Discharge Date Admission Date: February 18, 2021 Subjective patient minimally responsive today, per staff he has been like this he was initially at [facility] then at [facility] at [place] and then went to [facility] for rehab now admitted at [facility] discussed with ICU and nephrology, 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, pressures low, managing with Midodrine and Levophed reviewed labs Review of Systems Review of Systems: Unobtainable due to cognitive status Physical Exam Constitutional: + ill appearing, + obese, + altered mental status, + disheveled and + lethargic; no acute distress Neck: trachea midline, no thyromegaly Respiratory: normal respiratory effort, lungs clear to auscultation Cardiovascular: RRR, no murmur, no edema Gastrointestinal (Abdomen): normal bowel sounds, soft, nontender, no hepatosplenomegaly Musculoskeletal: Head/Neck/Chest: normocephalic, head atraumatic and neck supple Extremities: extremities normal to inspection and strength 5/5 throughout Skin: no rashes, warm and dry Neurologic: moves all extremities, awake and + confused; no focal motor deficits Psychiatric: Orientation: + guarded; + not oriented x 3 Results & Data Results & Data ([facility]) Vital Signs (Past 12 Hours) Vital Signs Temp Pulse Pulse Pulse Resp BP Pulse Ox 02/23/21 12:30 36.9 C 91 H 23 95 02/23/21 12:00 36.9 C 92 H 23 131/46 L 94 02/23/21 11:45 89 135/44 L 02/23/21 11:30 36.9 C 90 89 19 91 02/23/21 11:13 94 H 22 90 02/23/21 11:12 94 H 21 90 02/23/21 11:06 98 H 02/23/21 10:30 36.9 C 91 H 21 94 02/23/21 10:00 37.0 C 92 H 22 94 02/23/21 09:30 37.0 C 91 H 22 94 02/23/21 09:00 37.0 C 90 20 93 02/23/21 08:30 37.0 C 91 H 19 92 02/23/21 08:00 37.0 C 89 20 93 02/23/21 07:16 93 H 20 93 02/23/21 06:00 37.2 C 97 H 23 94 02/23/21 05:30 37.2 C 96 H 22 95 02/23/21 05:00 37.2 C 96 H 24 94 02/23/21 04:30 37.3 C 96 H 24 94 02/23/21 04:00 37.3 C 96 H 18 95 02/23/21 03:30 37.4 C 93 H 18 96 02/23/21 03:00 37.4 C 95 H 25 H 93 02/23/21 02:30 37.4 C 96 H 24 92 02/23/21 02:00 37.4 C 87 24 93 02/23/21 01:30 37.5 C 94 H 21 98 02/23/21 01:06 96 H 23 94 02/23/21 01:00 37.4 C 96 H 23 94 Laboratory Results Laboratory Results - last 24 hr 02/22/21 02/23/21 02/23/21 23:27 04:53 04:53 WBC 16.01 H RBC 2.80 L Hgb 7.6 L Hct 26.2 L MCV 93.6 MCH 27.1 MCHC 29.0 L RDW Std Deviation 64.1 H RDW Coeff of Aysha 18.9 H Plt Count 346 MPV 8.6 Immature Gran % (Auto) 0.4 Neut % (Auto) 78.8 Lymph % (Auto) 11.2 [place] % (Auto) 6.3 Eos % (Auto) 3.1 Baso % (Auto) 0.2 Neut # (Auto) 12.62 H Lymph # (Auto) 1.80 [place] # (Auto) 1.01 H Eos # (Auto) 0.49 Baso # (Auto) 0.03 Immature Gran # (Auto) 0.06 H Absolute Nucleated RBC 0.06 H Nucleated RBC % (auto) 0.4 Polychromasia 1+ Basophilic Stippling 1+ Stomatocytes 1+ APTT PTT Ratio Sodium 131 L Potassium 4.3 Chloride 97 L Carbon Dioxide 28 Anion Gap 6.0 BUN 47 H Creatinine 5.89 H* D Est Cr Clr Drug Dosing 15.8 Est GFR ( Amer) 10.5 Est GFR (Non-Af Amer) 9.0 BUN/Creatinine Ratio 7.9 L Glucose 129 H POC Glucose 125 H POC Glucose (other) Calcium 7.9 L Phosphorus 6.0 H Total Bilirubin 0.5 AST 65 H ALT 75 Alkaline Phosphatase 119 H Total Protein 6.9 Albumin 2.4 L Globulin 4.5 H Albumin/Globulin Ratio 0.5 L Procalcitonin Random Vancomycin 02/23/21 02/23/21 02/23/21 04:53 04:53 04:53 WBC RBC Hgb Hct MCV MCH MCHC RDW Std Deviation RDW Coeff of Aysha Plt Count MPV Immature Gran % (Auto) Neut % (Auto) Lymph % (Auto) [place] % (Auto) Eos % (Auto) Baso % (Auto) Neut # (Auto) Lymph # (Auto) [place] # (Auto) Eos # (Auto) Baso # (Auto) Immature Gran # (Auto) Absolute Nucleated RBC Nucleated RBC % (auto) Polychromasia Basophilic Stippling Stomatocytes APTT 95.5 H* PTT Ratio 3.6 Sodium Potassium Chloride Carbon Dioxide Anion Gap BUN Creatinine Est Cr Clr Drug Dosing Est GFR ( Amer) Est GFR (Non-Af Amer) BUN/Creatinine Ratio Glucose POC Glucose POC Glucose (other) Calcium Phosphorus Total Bilirubin AST ALT Alkaline Phosphatase Total Protein Albumin Globulin Albumin/Globulin Ratio Procalcitonin 17.11 H Random Vancomycin 25.0 02/23/21 02/23/21 02/23/21 04:56 10:30 12:08 WBC RBC Hgb 7.8 L Hct 26.3 L MCV MCH MCHC RDW Std Deviation RDW Coeff of Aysha Plt Count MPV Immature Gran % (Auto) Neut % (Auto) Lymph % (Auto) [place] % (Auto) Eos % (Auto) Baso % (Auto) Neut # (Auto) Lymph # (Auto) [place] # (Auto) Eos # (Auto) Baso # (Auto) Immature Gran # (Auto) Absolute Nucleated RBC Nucleated RBC % (auto) Polychromasia Basophilic Stippling Stomatocytes APTT PTT Ratio Sodium Potassium Chloride Carbon Dioxide Anion Gap BUN Creatinine Est Cr Clr Drug Dosing Est GFR ( Amer) Est GFR (Non-Af Amer) BUN/Creatinine Ratio Glucose POC Glucose 129 H POC Glucose (other) 126 H Calcium Phosphorus Total Bilirubin AST ALT Alkaline Phosphatase Total Protein Albumin Globulin Albumin/Globulin Ratio Procalcitonin Random Vancomycin 02/23/21 12:31 WBC RBC Hgb Hct MCV MCH MCHC RDW Std Deviation RDW Coeff of Aysha Plt Count MPV Immature Gran % (Auto) Neut % (Auto) Lymph % (Auto) [place] % (Auto) Eos % (Auto) Baso % (Auto) Neut # (Auto) Lymph # (Auto) [place] # (Auto) Eos # (Auto) Baso # (Auto) Immature Gran # (Auto) Absolute Nucleated RBC Nucleated RBC % (auto) Polychromasia Basophilic Stippling Stomatocytes APTT Pending PTT Ratio Pending Sodium Potassium Chloride Carbon Dioxide Anion Gap BUN Creatinine Est Cr Clr Drug Dosing Est GFR ( Amer) Est GFR (Non-Af Amer) BUN/Creatinine Ratio Glucose POC Glucose POC Glucose (other) Calcium Phosphorus Total Bilirubin AST ALT Alkaline Phosphatase Total Protein Albumin Globulin Albumin/Globulin Ratio Procalcitonin Random Vancomycin Medications Administered Current Inpatient Medications Hydrocodone Bitart/Acetaminophen (Hydrocodone/Acetamophen 5/325mg Tab) 1 tab PO BID PRN PRN Reason: pain 4-10 Stop: 03/04/21 16:03 Last Admin: 02/20/21 19:49 Dose: 1 tab Documented by: Albuterol (Albut/Ipratrop 3mg/0.5mg Neb 3 Ml Vial) 3 ml INH Q6R PRN PRN Reason: Shortness Of Breath Stop: 03/20/21 16:03 Amiodarone HCl (Amiodarone 200 Mg Tab) 100 mg PO Q12H KORY Stop: 03/20/21 16:29 Last Admin: 02/23/21 04:37 Dose: 100 mg Documented by: Aspirin (Aspirin 81 Mg Chew) 81 mg PO DAILY KORY Stop: 03/21/21 08:59 Last Admin: 02/23/21 08:42 Dose: 81 mg Documented by: Atorvastatin Calcium (Atorvastatin 10 Mg Tab) 10 mg PO HS KORY Stop: 03/21/21 20:59 Last Admin: 02/22/21 21:36 Dose: 10 mg Documented by: Calcium Carbonate (Calcium Carbonate 1,250 Mg/5 Ml Udc) 1,250 mg PO TIDM KORY Stop: 03/25/21 11:59 Last Admin: 02/23/21 11:48 Dose: 1,250 mg Documented by: Diclofenac Sodium (Diclofenac Sod 1% Gel 100 Gm Tube) 2 gm EXT TID KORY Stop: 03/20/21 16:03 Last Admin: 02/23/21 08:41 Dose: 2 gm Documented by: Docusate Sodium (Docusate Sodium Syrup 100 Mg/10 Ml Udc) 100 mg PO BID KORY Stop: 03/21/21 08:59 Last Admin: 02/23/21 08:41 Dose: 100 mg Documented by: Epoetin Napoleon (Epoetin Napoleon 10,000 Units/Ml Vial) 10,000 units IV 1100 [facility] Stop: 02/23/21 16:00 Heparin Sodium (Beef Lung) (Heparin 10 Unit/Ml 5 Ml Flush) 5 ml FLUSH PRN PRN PRN Reason: Flush Stop: 03/20/21 22:51 Heparin Sodium/Dextrose (Heparin Sodium/Dextrose) 25,000 units in 500 mls @ 30 mls/hr IV .[id number] [facility]; Protocol Stop: 03/20/21 10:59 Last Titration: 02/23/21 06:29 Dose: 1,350 units/hr, 27 mls/hr Documented by: Piperacillin Sod/Tazobactam (Sod 4.5 gm/ Dextrose) 120 mls @ 30 mls/hr IV Q12H [facility]; Protocol Stop: 03/01/21 16:59 Last Infusion: 02/23/21 09:23 Dose: Infused Documented by: Norepinephrine Bitartrate (Levophed/D5w) 8 mg in 508 mls @ 24.251 mls/hr IV .[id number] [facility]; Protocol Stop: 03/24/21 13:44 Last Titration: 02/23/21 12:54 Dose: 0.06 mcg/kg/min, 29.1 mls/hr Documented by: Caspofungin 50 mg/ Sodium (Chloride) 260 mls @ 260 mls/hr IV Q24H [facility] Stop: 03/26/21 08:59 Sodium Chloride (Nss 1000ml) 1,000 mls @ 0 mls/hr IV .Q0M PRN PRN Reason: For Hemodialysis Use ONLY Stop: 02/23/21 16:29 Pantoprazole Sodium 40 mg/ (Syringe) 10 mls @ 5 mls/min IV DAILY@1100 [facility] Stop: 03/26/21 10:59 Ketorolac Tromethamine (Ketorolac Tromethamine 15 Mg/Ml Vial) 15 mg IV Q6H PRN PRN Reason: Temperature > 38 C Stop: 02/26/21 19:08 Last Admin: 02/22/21 19:43 Dose: 15 mg Documented by: Lansoprazole (Lansoprazole 30 Mg Soltab) 30 mg PO BID [facility]; Protocol Stop: 03/21/21 08:59 Last Admin: 02/23/21 08:41 Dose: 30 mg Documented by: Midodrine (Midodrine Hcl 2.5 Mg Tab) 5 mg PO TID@0800,1200,1700 [facility] Stop: 03/25/21 11:59 Last Admin: 02/23/21 11:48 Dose: 5 mg Documented by: Miscellaneous Information (Vancomycin Consult Active) 1 ea N/A UD PRN PRN Reason: Consult Stop: 03/23/21 12:48 Miscellaneous Information (Piperacill/Tazobac Consult Active) 1 ea N/A UD PRN PRN Reason: Consult Stop: 03/24/21 07:57 Sevelamer HCl (Sevelamer Hcl 800 Mg Tablet) 2,400 mg PO TIDM [facility] Stop: 03/20/21 16:59 Last Admin: 02/23/21 11:48 Dose: Not Given Documented by: Sterile Water (Tube Feeding Water Flush) 60 ml GT QS [facility] Stop: 03/22/21 15:59 Last Admin: 02/23/21 08:39 Dose: 60 ml Documented by: Vitamin D (Cholecalciferol 1,000 Units 25 Mcg Tab) 2,000 units PO DAILY [facility] Stop: 03/21/21 08:59 Last Admin: 02/23/21 08:41 Dose: 2,000 units Documented by: Warfarin Sodium (Warfarin Sod 7.5 Mg Tab) 7.5 mg PO DAILY@1600 [facility] Stop: 03/21/21 15:59 Last Admin: 03/28/21 16:36 Dose: 7.5 mg Documented by: PG Care Time/CCT Total # of Minutes Spent Total Time Spent with Patient: Total time spent is greater than 50% in coordination of care (as documented) at patient's floor/unit and/or counseling patient: Coding Level of Care Code 34907 Subseq Hosp Care Lvl 2 Diagnoses DVT (deep venous thrombosis) I82.621 Affected thrombotic vein of extremity: unspecified vein of extremity Chronicity: acute DVT location: upper extremity Laterality: right Acute metabolic encephalopathy G93.41 Hypoxia R09.02 Sepsis A41.9 Weakness R53.1 ESRD (end stage renal disease) on dialysis N18.6; Z99.2 Anemia D64.9 COPD (chronic obstructive pulmonary disease) J44.9 COPD type: unspecified COPD JORDAN treated with BiPAP G47.33 Afib I48.0 Atrial fibrillation type: paroxysmal Chronic respiratory failure with hypoxia J96.11 Neuropathy G62.9 Ryan esophagus K22.70 Constipation K59.00 Critical illness myopathy G72.81 Morbid obesity E66.01 (1) DVT (deep venous thrombosis) Affected thrombotic vein of extremity: unspecified vein of extremity Chronicity: acute DVT location: upper extremity Laterality: right Qualified Code(s): I82.621 - Acute embolism and thrombosis of deep veins of right upper extremity (2) Afib Atrial fibrillation type: paroxysmal Qualified Code(s): I48.0 - Paroxysmal atrial fibrillation (3) COPD (chronic obstructive pulmonary disease) COPD type: unspecified COPD Qualified Code(s): J44.9 - Chronic obstructive pulmonary disease, unspecified
[2021-02-23 12:59] LABS: Partial Thromboplastin Ratio 3.7
[2021-02-23] MEDS: NOREPINEPHRINE/D5W 8 MG/508 ML BAG IV SCH (13:55)
[2021-02-23] MEDS ORDERED: STAT IV Infusion **Titration per Protocol STA (14:33)
[2021-02-23] MEDS: VASOPRESSIN 20 UNITS in 0.9 % SODIUM CHLORIDE 100 ML IV SCH (15:01)
[2021-02-23] MEDS: WARFARIN SOD 7.5 MG TAB PO SCH (16:20)
[2021-02-23] MEDS: ATORVASTATIN 10 MG TAB PO SCH (20:43)
[2021-02-23 21:02] LABS: Partial Thromboplastin Ratio 3.3
[2021-02-23 21:10] LABS: Partial Thromboplastin Time 87.7 Seconds (21.0-31.0)
[2021-02-24] MEDS ORDERED: FLUCONAZOLE 100 MG/50 ML BAG IV SCH
[2021-02-24] MEDS: VASOPRESSIN 20 UNITS in 0.9 % SODIUM CHLORIDE 100 ML IV SCH ×3 (00:50→16:43)
[2021-02-24] MEDS: HEPARIN SODIUM/DEXTROSE 25,000 UNITS/500 ML BAG IV SCH ×2 (04:23→08:11)
[2021-02-24] MEDS: PIPERACILLIN/TAZOBACTAM 4.5 GM in DEXTROSE 5% 100 ML IV SCH ×2 (04:23→16:45)
[2021-02-24] MEDS: AMIODARONE 200 MG TAB PO SCH ×2 (04:24→16:44)
[2021-02-24 05:18] LABS: Hematocrit (blood only) 26.6 % (42-52); Hemoglobin 7.7 g/dL (14.0-18.0); Mean Corpuscular Hemoglobin 27.6 pg (25-34); Mean Corpuscular Hgb Conc 28.9 g/dL (32-36); Mean Corpuscular Volume 95.3 fL (80-100); Mean Platelet Volume 8.9 fL (7.4-10.4); Nucleated RBC # (auto) 0.13 K/uL (0-0); Nucleated RBC % (auto) 0.8 %; Platelet Count 310 K/uL (130-400); RDW Coefficient of Variation 18.8 % (11.5-14.5); RDW Standard Deviation 65.8 fL (36.4-46.3); Red Blood Count 2.79 M/uL (4.7-6.1); White Blood Count 15.35 K/uL (4.8-10.8)
[2021-02-24 05:35] LABS: Basophilic Stippling 1+; Basophils # (auto) 0.04 K/uL (0-0.2); Basophils % (auto) 0.3 %; Eosinophils # (auto) 0.49 K/uL (0-0.5); Eosinophils % (auto) 3.2 %; Immature Granulocytes # (auto) 0.08 K/uL (0.00-0.02); Immature Granulocytes % (auto) 0.5 %; Lymphocytes # (auto) 2.09 K/uL (1.2-3.4); Lymphocytes % (auto) 13.6 %; Monocytes # (auto) 1.35 K/uL (0.11-0.59); Monocytes % (auto) 8.8 %; Neutrophils % (auto) 73.6 %; Polychromasia 1+; Stomatocytes 1+
[2021-02-24 05:36] LABS: INR 4.9 (0.9-1.1); Partial Thromboplastin Ratio 3.2; Prothrombin Time 43.4 Seconds (9.0-12.0)
[2021-02-24 05:50] LABS: Partial Thromboplastin Time 83.8 Seconds (21.0-31.0)
[2021-02-24] MEDS: NOREPINEPHRINE/D5W 8 MG/508 ML BAG IV SCH ×2 (06:06→21:20)
[2021-02-24 06:11] LABS: Albumin Globulin Ratio 0.4 (0.9-2); Albumin Level 2.1 gm/dl (3.4-5.0); BUN Creatinine Ratio 7.8 (10-20); Bilirubin,Total 0.3 mg/dl (0.2-1); Calcium 7.9 mg/dl (8.5-10.1); Est GFR (African American) 12.9; Est GFR (Non-African American) 11.2; Globulin 4.8 gm/dl (2.5-4.0); Magnesium 2.6 mg/dl (1.8-2.4); Phosphorus 6.6 mg/dl (2.5-4.9); Potassium 4.1 mmol/L (3.5-5.1); Total Protein 6.9 gm/dl (6.4-8.2)
[2021-02-24] MEDS: CASPOFUNGIN 50 MG in SODIUM CHLORIDE 0.9% 250 ML IV SCH (08:21)
[2021-02-24] MEDS: MIDODRINE HCL 2.5 MG TAB PO SCH ×3 (08:22→16:44)
[2021-02-24] MEDS: CALCIUM CARBONATE 1,250 MG/5 ML UDC PO SCH ×3 (08:22→16:44)
[2021-02-24] MEDS: SEVELAMER HCL 800 MG TABLET PO SCH ×2 (08:23→09:30)
[2021-02-24] MEDS: TUBE FEEDING WATER FLUSH GT SCH ×2 (08:23→16:43)
[2021-02-24] MEDS: LANSOPRAZOLE 30 MG SOLTAB PO SCH ×2 (08:23→20:24)
[2021-02-24] MEDS: CHOLECALCIFEROL 1,000 UNITS 25 MCG TAB PO SCH (08:23)
[2021-02-24] MEDS: DICLOFENAC SOD 1% GEL 100 GM TUBE EXT SCH ×3 (08:24→20:25)
[2021-02-24] MEDS: ASPIRIN 81 MG CHEW PO SCH (08:25)
[2021-02-24] MEDS: DOCUSATE SODIUM SYRUP 100 MG/10 ML UDC PO SCH ×2 (08:26→20:24)
--- NOTE | 2021-02-24 08:43 | Critical Care Progress Note ---
Date of Service February 24, 2021 Assessment & Plan (1) Sepsis: Neurologic: Acute encephalopathy likely secondary to hypercapnia and/or metabolic issues. CT head with no evidence of acute intracranial findings. Partially opacified right mastoid air cells noted. Pulmonary: ABG today showing significant hypercapnia likely contributing to mental status changes. Bronchoscopy performed lavage cultures collected and sent to lab. Switched to cuffed trach. Oxygenating well on BiPAP. Cardiovascular: Patient continues to be hypotensive likely secondary to sepsis. Central line is in place and patient has Levophed and vasopressin infusing. Continue Midodrine 5 mg TID. Continue amiodarone for history of atrial fibrillation. Heparin drip and warfarin discontinued today due to elevated INR. Gastrointestinal: PEG tube in place, will start trickle feeds at 10 cc/hr. NPO. On Lansoprazole for GI ppx. Renal: Nephrology discussed that he will get HD today in light of possible line holiday. Continue calcium carbonate for phosphorus binding. May require transfer to tertiary center for CRRT if he becomes more hypotensive with increasing hypoxia. Infectious disease: Initial blood cultures growing yeast, repeat cultures negative thus far. Infectious Disease consulted and recommend DC antibiotics but will hold off on that for now pending repeat cultures. Continue caspofungin. May need to have tunneled dialysis catheter removed. No significant intra-abdominal pathology seen on CT abdomen & pelvis. 3.6 cm infrarenal abdominal aortic aneurysm noted. Hematologic: Anemia of chronic disease. Hemoglobin continues to be stable on CBC. Endocrine: Hyperglycemia management with the assistance of pharmacy. VTE prophylaxis: Heparin drip discontinued today due to elevated INR CODE STATUS: Full code Family at bedside: Not available due to the COVID-19 pandemic Disposition: Remain in ICU (2) ESRD (end stage renal disease) on dialysis: (3) COPD (chronic obstructive pulmonary disease): (4) DVT (deep venous thrombosis): (5) Acute metabolic encephalopathy: (6) Acute on chronic respiratory failure with hypoxia and hypercapnia: Admission and Anticipated Discharge Date Admission Date: February 18, 2021 Supervising Physician Co-Signing Physician Notes Dr. Hale was the resident-physician during care of patient. I separately evaluated patient for shields portions of the history and the exam. I was present during the critical portion of medical decision making, and I discussed the case with the resident. I generally agree with the findings and plan except for any additions/exceptions noted. Patient continues to be in septic shock with now having a presentation of acute on chronic hypercapnic respiratory failure. I changed out the uncuffed trach to a cuffed trach to allow for mechanical ventilation via the tracheostomy. We obtain sequential ABGs to monitor ventilatory status. Ventilation is improving with him being on a mechanical ventilator. Continue lung protective ventilation strategy. Continue broad-spectrum antibiotics given elevated procalcitonin and undifferentiated septic shock. He does have evidence of yeast on blood cultures. Repeat blood cultures pending. Echo pending as well. Will need ophthalmologic evaluation for endophthalmitis. Continue caspofungin. Ideally, would benefit from a line holiday with removal of all central lines. Unfortunately, this is unable to be achieved at this time due to his need for pressors and dialysis. May benefit from transfer to a tertiary center with interventional radiology available to place a new tunneled dialysis catheter. Vascular surgery is currently not available this week to remove the tunneled catheter. Continue anticoagulation given recent DVT. Currently INR is 4.9. Heparin was discontinued. I spoke with the patient's over the phone and updated her about the situation. Patient was also discussed on interdisciplinary rounds. I have personally spent 42 minutes of critical care time in the direct management of this patient. This is a life/limb threatening event. This includes time spent evaluating patient, direct bedside care, chart review, placing orders, interpretation of diagnostic studies, discussion with consultants, patient, and/or family members regarding treatment decisions, as well as other required patient management activities. This time is exclusive of all separately billable procedures, and teaching time and separate from and in addition to any other critical care service time. Subjective Patient seen at bedside this morning. Unresponsive to verbal stimuli. Responded to sternal rub but not able to follow commands. Sister gave verbal consent over the phone for bronchoscopy and changing trach to cuffed. Review of Systems Review of Systems: Unobtainable due to cognitive status Physical Exam Constitutional: + ill appearing, + morbidly obese and + altered mental status Eyes: PERRL, conjunctivae normal, anicteric sclerae Neck: + tracheostomy present (size 6 cuffed trach) Respiratory: Auscultation: + diminished lung sounds and + crackles; no rales, no rhonchi and no wheezes Cardiovascular: RRR, no murmur, no edema Heart Sounds: normal S1 and normal S2 Gastrointestinal (Abdomen): Inspection/Auscultation: normal bowel sounds; abdomen not distended Percussion/Palpation: abdomen soft; abdomen nontender PEG tube in place Musculoskeletal: Extremities: no cyanosis and no clubbing Skin: no rashes, warm and dry Neurologic: Only responsive to noxious stimuli Results & Data Results & Data ([facility]) Vital Signs (Past 12 Hours) Vital Signs Temp Pulse Resp BP Pulse Ox 02/24/21 08:00 74 18 92 02/24/21 06:00 76 15 95 02/24/21 05:00 36.0 C L 77 14 93 02/24/21 04:00 36.1 C L 82 16 134/43 L 87 L 02/24/21 03:39 80 14 98 02/24/21 03:00 36.2 C L 83 16 94 02/24/21 02:47 80 02/24/21 02:00 36.4 C L 85 14 89 L 02/24/21 01:00 36.5 C 78 15 93 02/24/21 00:00 36.6 C 88 16 96 02/23/21 23:00 36.8 C 84 16 94 02/23/21 22:56 86 17 93 02/23/21 22:00 36.9 C 88 19 92 02/23/21 21:00 37.0 C 80 16 96 Resident Activity Tracking Resident Involvement: Resident Care Provided Care Provided: Adult Hospital Medicine (1) DVT (deep venous thrombosis) Affected thrombotic vein of extremity: unspecified vein of extremity Chronicity: acute DVT location: upper extremity Laterality: right Qualified Code(s): I82.621 - Acute embolism and thrombosis of deep veins of right upper extremity (2) COPD (chronic obstructive pulmonary disease) COPD type: unspecified COPD Qualified Code(s): J44.9 - Chronic obstructive pulmonary disease, unspecified
[2021-02-24] MEDS ORDERED: SODIUM CHLORIDE 0.9% 1000ML 1,000 ML IV PRN (09:34)
[2021-02-24] MEDS ORDERED: EPOETIN ALFA 10,000 UNITS/ML VIAL IV ONE (09:34)
[2021-02-24 09:48] LABS: iSTAT Art Bld Gas pCO2 Correct 114 mmHg (35-46); iSTAT Art Bld Gas pH Corrected 7.028 (7.35-7.45); iSTAT Arterial Blood Gas HCO3 30 meg/L (19-24); iSTAT Arterial Blood Gas pCO2 > 115 mmHg (35-46); iSTAT Arterial Blood Gas pH 7.02 (7.35-7.45); iSTAT Arterial Blood Gas pO2 167 mmHg (80-95); iSTAT Arterial Blood Gas pO2 C 165; iSTAT Carbon Dioxide 34 mmol/L (24-31); iSTAT FiO2 100 %; iSTAT Hematocrit 27 % (42-52); iSTAT Hemoglobin 9.2 g/dl (14.0-18.0); iSTAT Potassium 4.3 mmol/L (3.3-5.0); iSTAT Site Art Line; iSTAT Sodium 130 mmol/L (135-144)
--- NOTE | 2021-02-24 10:34 | Procedure Note ---
Procedure Note Date of Service February 24, 2021 Note Consent was obtained from the over the phone as the patient was unable to give consent. The uncuffed trach with removed for inspection with the bronchoscope through the tracheostomy. The stoma was patent. The cuffed size 6 Shiley XLT was inserted over the bronchoscope without any significant complication. Minor bleeding around the stomal site was seen. No active bleeding was seen within the trachea. The cuff was inflated. The patient was hooked up to the ventilator. Coding CPT Codes Pulmonary/Thoracic - Pulmonary and Thoracic: 41314 Tracheotomy tube change ([id number]) [facility] [place]odes (Charges) Pulmonary/Thoracic Procedure 1: Pulmonary and Thoracic: 19551 Tracheotomy tube change
--- NOTE | 2021-02-24 10:39 | Procedure Note ---
Procedure Note Date of Service February 24, 2021 Note PREOPERATIVE DIAGNOSIS: Acute hypercapnic respiratory failure POSTOPERATIVE DIAGNOSIS: Acute hypercapnic respiratory failure with history of MRSA pneumonia PROCEDURE PERFORMED: Flexible fiberoptic bronchoscopy with bronchoalveolar lava ge from the right lower lobe COMPLICATIONS: None. INDICATION: Tracheostomy change and infectious work-up PROCEDURE: Consent was obtained from the patient's as the patient was unresponsive. No sedation was utilized with the procedure as the patient was essentially obtunded. Bronchoscope was inserted via the tracheostomy site. Trachea had small amounts of thin secretions. Torie was sharp. Tracheobronchial tree inspection was performed up to the level of the subsegmental bronchus. Mucoid impaction was seen bilaterally and aspirated. 100 mL of saline was instilled after the scope was wedged in the right lower lobe. Approximately 20 mL was aspirated back. Scope was then withdrawn to the level of the torie. No significant bleeding was seen. Scope was then completely removed. Recommendations: Follow cultures and cell count from right lower lobe BAL. Coding CPT Codes Pulmonary/Thoracic - Pulmonary and Thoracic: 50402 Dx bronchoscopy/BAL ([id number]) [facility] [place] Procedure Codes (Charges) Pulmonary/Thoracic Procedure 2: Pulmonary and Thoracic: 56006 Dx bronchoscopy/BAL
--- NOTE | 2021-02-24 10:46 | Pharmacy Report ---
Pharmacy Abx Dose Short Note - Date of Service February 24, 2021 - Assessment & Plan Assessment * 70 year old M receiving VANCOMYCIN + ZOSYN + CASPOFUNGIN for treatment of septic shock, possible pulm source, possible infected HD cath. * + risk factors for resistant organism: recent prolonged hospitalizations, receipt of broad-spectrum abx, h/o MRSA PNA, hemodialysis * Day # 4 Vancomycin, Day # 3 Zosyn, Day 2 Caspofungin * Yeast growing in 2 of 2 BLCXs from 02/21 - further ID pending, repeat BLCXs 02/22 with no growth to date * 02/21 sputum: normal jeni * 02/24 bronch wash: pending * There may be plans to remove THC. * Patient is now requiring both norepi and vasopressin for pressor support Plan Vancomycin * Random AM level therapeutic at 18.2 mcg/mL * 3.5 hr HD has been ordered for today. * Will give 500mg following HD treatment * Will repeat random vanco level w/ AM labs tomorrow * Plan to repeat dosing when level 15-20 or anticipated to be so following HD treatment; goal trough 15-20mcg/mL for septic shock / possible pulm source Zosyn * eCrCl < 20, HD dependent: continue 4.5gm ext-infusion dosing Q 12 hrs Pharmacy will continue to follow and will adjust dose/frequency as necessary. Thank you.
--- NOTE | 2021-02-24 10:52 | Progress Notes ---
DATE: 02/24/2021 NEPHROLOGY PROGRESS NOTE SUBJECTIVE: Overnight, he did have dialysis and about half kilo of fluid was removed without any problem. However, his blood culture is possibly growing yeast. His blood pressure seems to be better. He is still requiring BiPAP. OBJECTIVE: VITAL SIGNS: Blood pressure is 134/43, pulse rate 74, temperature 36 degrees Celsius, 92% on BiPAP. CHEST: Bilaterally decreased breath sounds. CARDIOVASCULAR: S1, S2 regular. ABDOMEN: Soft, nontender, obese. EXTREMITIES: Show 1+ edema. LABORATORY TESTS: Hemoglobin 7.7, platelet count 310. Sodium 133, potassium 4.1, BUN 39, creatinine 4.94. Phosphorus 6.6, calcium 7.9, albumin 2.1. ASSESSMENT AND PLAN: A 70-year-old male with newly started dialysis during this prolonged complicated hospitalization in [place]. At this time, we have called him as end-stage renal disease. End-stage renal disease: We will do dialysis again today to take a little bit more fluid off. We will aim for 1.5 kilo to 2 kilo off today and do for 3.5 hours. The more difficult question is what to do with his tunneled dialysis catheter. Given that his blood culture is growing fungus, ideally the catheter needs to come out. However, the blood cultures have not been extremely clear and infectious disease has been consulted who has recommended tentatively to remove the dialysis catheter. Given this situation, I would like to do dialysis and after that the tunneled catheter can be removed and will give him line holidays. Even the line holiday in a case of fungus should be much more prolonged than for bacteria.
[2021-02-24] MEDS ORDERED: PANTOprazole 40 MG in SYRINGE 0 ML IV SCH (11:00)
[2021-02-24 11:08] LABS: iSTAT Art Bld Gas pCO2 Correct 80 mmHg (35-46); iSTAT Art Bld Gas pH Corrected 7.157 (7.35-7.45); iSTAT Arterial Blood Gas HCO3 28 meg/L (19-24); iSTAT Arterial Blood Gas pCO2 81 mmHg (35-46); iSTAT Arterial Blood Gas pH 7.15 (7.35-7.45); iSTAT Arterial Blood Gas pO2 75 mmHg (80-95); iSTAT Arterial Blood Gas pO2 C 73; iSTAT Carbon Dioxide 31 mmol/L (24-31); iSTAT FiO2 60 %; iSTAT Hematocrit 25 % (42-52); iSTAT Hemoglobin 8.5 g/dl (14.0-18.0); iSTAT Potassium 4.3 mmol/L (3.3-5.0); iSTAT Site Art Line; iSTAT Sodium 131 mmol/L (135-144)
[2021-02-24] MEDS ORDERED: PEPTAMEN INTENSE VHP 1.0 CAL 1,000 ML BAG PEG SCH (11:45)
[2021-02-24 11:48] LABS: Eosinophil Body Fluid Man 0 %; Fluid Mono/Macrophage 7 %; Lymphocyte Body Fluid Man 2 %; Neutrophil Body Fluid Man 91 %
--- NOTE | 2021-02-24 13:28 | XCELERA ---
[id number]
[2021-02-24 13:52] LABS: iSTAT Art Bld Gas pCO2 Correct 65 mmHg (35-46); iSTAT Art Bld Gas pH Corrected 7.225 (7.35-7.45); iSTAT Arterial Blood Gas HCO3 27 meg/L (19-24); iSTAT Arterial Blood Gas pCO2 67 mmHg (35-46); iSTAT Arterial Blood Gas pH 7.22 (7.35-7.45); iSTAT Arterial Blood Gas pO2 108 mmHg (80-95); iSTAT Arterial Blood Gas pO2 C 104; iSTAT Carbon Dioxide 29 mmol/L (24-31); iSTAT FiO2 60 %; iSTAT Hematocrit 26 % (42-52); iSTAT Hemoglobin 8.8 g/dl (14.0-18.0); iSTAT Potassium 4.4 mmol/L (3.3-5.0); iSTAT Site Art Line; iSTAT Sodium 130 mmol/L (135-144)
[2021-02-24] MEDS ORDERED: VANCOMYCIN HCL 500 MG in 0.9 % SODIUM CHLORIDE 100 ML IV ONE (14:00)
--- NOTE | 2021-02-24 15:21 | Billing Data ---
Date of Service February 24, 2021 Coding Level of Care Code Critical Care 1st 30-74 mins Time Spent (min) 42
--- NOTE | 2021-02-24 16:36 | XRay Report ---
XR chest 1V portable HISTORY: hypoxia COMPARISON: Chest 02/21/2021. FINDINGS: No pneumothorax. Small bilateral pleural effusions and mild interstitial pulmonary edema pe rsist. The heart remains mildly enlarged. A tracheostomy tube is unchanged in position. Right jugular catheter terminates in the SVC. Stable bibasilar densities suggesting atelectasis. IMPRESSION: 1. No change in the mild pulmonary edema and small bilateral pleural effusions. 2. Satisfactory support line placement. ACT 112: Negative or not required by law. Electronically signed by: Vinayak Shepherd M.D. 02/24/2021 4:34 PM
[2021-02-24] MEDS: ATORVASTATIN 10 MG TAB PO SCH (20:25)
[2021-02-24 20:36] LABS: iSTAT Art Bld Gas pCO2 Correct 52 mmHg (35-46); iSTAT Art Bld Gas pH Corrected 7.342 (7.35-7.45); iSTAT Arterial Blood Gas HCO3 28 meg/L (19-24); iSTAT Arterial Blood Gas pCO2 52 mmHg (35-46); iSTAT Arterial Blood Gas pH 7.34 (7.35-7.45); iSTAT Arterial Blood Gas pO2 61 mmHg (80-95); iSTAT Arterial Blood Gas pO2 C 61; iSTAT Carbon Dioxide 30 mmol/L (24-31); iSTAT FiO2 40 %; iSTAT Hematocrit 38 % (42-52); iSTAT Hemoglobin 12.9 g/dl (14.0-18.0); iSTAT Potassium 3.1 mmol/L (3.3-5.0); iSTAT Site Art Line; iSTAT Sodium 134 mmol/L (135-144)
--- NOTE | 2021-02-24 21:40 | Hospitalist Progress Note ---
Date of Service February 24, 2021 Assessment & Plan (1) Fungemia: blood cultures from admission growing Melonie albicans treatment with Caspofungin repeat cultures are clear ophthomology evaluated patient, no evidence of endopthalmitis continue Caspofungin but ideally he needs a line holiday, has a tunneled HD catheter and femoral line for access we do not have vascular surgery or IR here will reach out to tertiary hospital for potential transfer (2) Acute on chronic respiratory failure with hypoxia and hypercapnia: less responsive, obtunded morning of 02/24 ABG with PCO2 of 100, pH of 7.0, placed on ventilatory support via tracheostomy repeat ABG with PCO2 down to 56 and pH up to 7.3 keep on assist control today, FiO2 is only 35% (3) Heme positive stool: heme positive on 02/24 Hb dropping down to 7's INR is supratherapeutic consult GI, tube feeds trickle Protonix drip (4) DVT (deep venous thrombosis): Admitted initially for RLE DVT and then developed sepsis as below With a history of right upper extremity DVT during recent prolonged hospitalization which is now resolved Now with right lower extremity nonocclusive thrombus within the SFV he was on Eliquis 2.5mg BID, probably not ideal given ESRD and morbid obesity treated with heparin drip and Coumadin now INR is 4.9, will need reversed with bleeding (heme positive stool) might benefit from IVC filter, we do not have vascular surgery or IR at this time, will need to reach out to tertiary care (5) Acute metabolic encephalopathy: became altered and with fever, sepsis developing after return from HD on 02/21, with rigors with hypoxia to 80% on 4LNC and hypotension to the 80s Transferred to ICU on 02/21 -continue empiric Vanco (renally dosed with HD on random vanc levels, continue Zosyn (initially was on Cefepime) -has a h/o MRSA PNA as well as Pseudomonas continue caspofungin for Melonie albicans in blood stream mental status got worse again with hypercapnia, improving with ventilation via tracheostomy (6) Hypoxia: Acute on chronic resp failure with hypoxia-sats dropped to 80% on 4LNC while spiking fever on 02/[address] since Nov 2020 but is capped and uses at night for JORDAN? Also on 4LNC prior to recent ICU stay for MRSA PNA he was oxygenating well but placed back on ventilatory support for hypercapnia (7) Sepsis: septic shock requiring Vasopressin and Levophed treating with Caspofungin, Robin Riveran (8) Weakness: Chronic following prolonged ICU admission in X2 months. Likely with Critical illness myopathy - PT/OT consults placed - Continue nutritional support for muscle building - rehab and muscle strengthening (9) ESRD (end stage renal disease) on dialysis: Started on hemodialysis during recent prolonged hospitalization in November 2020 Is on a Tuesday schedule had HD on Friday 02/23 with no UF done due to low blood pressures had HD on Saturday 02/24 with 1.5 liters of UF, HD done for 3.5 hours now he needs a line holiday, has a tunneled HD catheter on the right INR is 4.9, no vascular surgery or IR here to intervene will reach out to tertiary care (10) Anemia: hemoglobin drifting down slowly, INR is 4.9 no indication for transfusion today but will monitor closely heme occult positive (11) COPD (chronic obstructive pulmonary disease): Continue home Combivent nebs/inhalers, no acute issues - On 4 LNC chronic - Goal 88-92% spo2 -With tracheostomy in place, continue trach care (12) JORDAN treated with BiPAP: Settings unable to verify- obese, tracheostomy, - titrate with respiratory therapy support - Auto-pap may support while in house if unable to dial in settings definitely needs to be on BIPAP settings at night via trach he developed hypercapnia on 02/24 in the morning with PCO2 of 100 (13) Afib: on Amiodarone Patient was unaware of this diagnosis, but did previously follow with a railroad shop inspector prior to his hospitalization-Dr. 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 Crews, might need to consider transfer to tertiary care will need a line holiday, we do not have a vascular surgeon right now reviewed labs Review of Systems Review of Systems: Unobtainable due to reduced consciousness Physical Exam Constitutional: + ill appearing, + obese, + altered mental status, + disheveled and + lethargic; no acute distress Neck: trachea midline, no thyromegaly Respiratory: normal respiratory effort, lungs clear to auscultation Cardiovascular: RRR, no murmur, no edema Gastrointestinal (Abdomen): normal bowel sounds, soft, nontender, no hepatosplenomegaly Musculoskeletal: Head/Neck/Chest: normocephalic, head atraumatic and neck supple Extremities: extremities normal to inspection and strength 5/5 th roughout Skin: no rashes, warm and dry Neurologic: moves all extremities, awake and + confused; no focal motor defic its Psychiatric: Orientation: + guarded; + not oriented x 3 Results & Data Results & Data ([facility]) Vital Signs (Past 12 Hours) Vital Signs Temp Pulse Pulse Pulse Resp BP BP 02/24/21 20:00 37.0 C 51 L 02/24/21 19:14 53 L 26 H 02/24/21 19:00 51 L 02/24/21 18:00 85 02/24/21 17:47 36.9 C 69 69 104/62 104/62 02/24/21 17:20 64 130/53 L 02/24/21 17:00 77 140/51 L 02/24/21 16:40 98 H 132/48 L 02/24/21 16:20 53 L 131/52 L 02/24/21 16:00 36.4 C L 62 145/47 H 02/24/21 15:45 52 L 26 H 02/24/21 15:40 51 L 143/46 H 02/24/21 15:20 50 L 107/42 L 02/24/21 15:00 52 L 108/43 L 02/24/21 14:40 52 L 104/40 L 02/24/21 14:16 68 129/45 L 02/24/21 14:10 36.5 C 68 91 H 02/24/21 14:00 87 02/24/21 13:52 26 H 02/24/21 12:00 36.6 C 56 L 02/24/21 11:08 20 02/24/21 11:00 63 02/24/21 10:00 67 21 02/24/21 09:55 72 02/24/21 09:50 70 02/24/21 09:45 67 17 02/24/21 09:40 67 17 Pulse Ox 02/24/21 20:00 91 02/24/21 19:14 92 02/24/21 19:00 93 02/24/21 18:00 95 02/24/21 17:47 02/24/21 17:20 02/24/21 17:00 02/24/21 16:40 02/24/21 16:20 02/24/21 16:00 95 02/24/21 15:45 92 02/24/21 15:40 02/24/21 15:20 02/24/21 15:00 02/24/21 14:40 02/24/21 14:16 02/24/21 14:10 02/24/21 14:00 94 02/24/21 13:52 02/24/21 12:00 97 02/24/21 11:08 94 02/24/21 11:00 93 02/24/21 10:00 96 02/24/21 09:55 93 02/24/21 09:50 93 02/24/21 09:45 96 02/24/21 09:40 100 Laboratory Results Laboratory Results - last 24 hr 02/24/21 02/24/21 02/24/21 01:08 05:01 05:01 WBC RBC Hgb POC Hgb Hct POC Hct MCV MCH MCHC RDW Std Deviation RDW Coeff of Aysha Plt Count MPV Immature Gran % (Auto) Neut % (Auto) Lymph % (Auto) Merrick % (Auto) Eos % (Auto) Baso % (Auto) Neut # (Auto) Lymph # (Auto) Merrick # (Auto) Eos # (Auto) Baso # (Auto) Immature Gran # (Auto) Absolute Nucleated RBC Nucleated RBC % (auto) Polychromasia Basophilic Stippling Stomatocytes PT INR APTT PTT Ratio Sample Site POC pH POC pCO2 POC pO2 POC HCO3 POC Total CO2 POC Base Excess ABG pH (Temp Correct) ABG pCO2 (Temp Corrct POC ABG pO2 at Pt Temp POC ABG O2 Sat Tevin Test O2 Delivery Device POC O2 Rate Minute Ventilation POC FiO2 Tidal Volume PEEP IPAP POC Sodium Sodium 133 L POC Potassium Potassium 4.1 Chloride 98 Carbon Dioxide 28 Anion Gap 7.0 BUN 39 H Creatinine 4.94 H* D Est Cr Clr Drug Dosing 19.0 Est GFR ( Amer) 12.9 Est GFR (Non-Af Amer) 11.2 BUN/Creatinine Ratio 7.8 L Glucose 143 H POC Glucose (other) 129 H Calcium 7.9 L Phosphorus 6.6 H Magnesium 2.6 H Total Bilirubin 0.3 AST 32 ALT 60 Alkaline Phosphatase 131 H Total Protein 6.9 Albumin 2.1 L Globulin 4.8 H Albumin/Globulin Ratio 0.4 L Fluid Neutrophils % Fluid Lymphocytes % Fluid Eosinophils % Fl Monocyt/Macrophag % Fluid Comment Random Vancomycin 18.2 02/24/21 02/24/21 02/24/21 05:01 05:01 09:25 WBC 15.35 H RBC 2.79 L Hgb 7.7 L POC Hgb Hct 26.6 L POC Hct MCV 95.3 MCH 27.6 MCHC 28.9 L RDW Std Deviation 65.8 H RDW Coeff of Aysha 18.8 H Plt Count 310 MPV 8.9 Immature Gran % (Auto) 0.5 Neut % (Auto) 73.6 Lymph % (Auto) 13.6 Merrick % (Auto) 8.8 Eos % (Auto) 3.2 Baso % (Auto) 0.3 Neut # (Auto) 11.30 H Lymph # (Auto) 2.09 Merrick # (Auto) 1.35 H Eos # (Auto) 0.49 Baso # (Auto) 0.04 Immature Gran # (Auto) 0.08 H Absolute Nucleated RBC 0.13 H Nucleated RBC % (auto) 0.8 Polychromasia 1+ Basophilic Stippling 1+ Stomatocytes 1+ PT 43.4 H INR 4.9 H APTT 83.8 H* PTT Ratio 3.2 Sample Site POC pH POC pCO2 POC pO2 POC HCO3 POC Total CO2 POC Base Excess ABG pH (Temp Correct) ABG pCO2 (Temp Corrct POC ABG pO2 at Pt Temp POC ABG O2 Sat Tevin Test O2 Delivery Device POC O2 Rate Minute Ventilation POC FiO2 Tidal Volume PEEP IPAP POC Sodium Sodium POC Potassium Potassium Chloride Carbon Dioxide Anion Gap BUN Creatinine Est Cr Clr Drug Dosing Est GFR ( Amer) Est GFR (Non-Af Amer) BUN/Creatinine Ratio Glucose POC Glucose (other) Calcium Phosphorus Magnesium Total Bilirubin AST ALT Alkaline Phosphatase Total Protein Albumin Globulin Albumin/Globulin Ratio Fluid Neutrophils % 91 Fluid Lymphocytes % 2 Fluid Eosinophils % 0 Fl Monocyt/Macrophag % 7 Fluid Comment Random Vancomycin 02/24/21 02/24/21 02/24/21 09:35 10:55 13:35 WBC RBC Hgb POC Hgb 9.2 L 8.5 L Hct POC Hct 27 L 25 L MCV MCH MCHC RDW Std Deviation RDW Coeff of Aysha Plt Count MPV Immature Gran % (Auto) Neut % (Auto) Lymph % (Auto) Merrick % (Auto) Eos % (Auto) Baso % (Auto) Neut # (Auto) Lymph # (Auto) Merrick # (Auto) Eos # (Auto) Baso # (Auto) Immature Gran # (Auto) Absolute Nucleated RBC Nucleated RBC % (auto) Polychromasia Basophilic Stippling Stomatocytes PT INR APTT PTT Ratio Sample Site Art Line Art Line POC pH 7.02 L* 7.15 L* POC pCO2 > 115 H 81 H POC pO2 167 H 75 L POC HCO3 30 H 28 H POC Total CO2 34 H 31 POC Base Excess -1.0 0.0 ABG pH (Temp Correct) 7.028 L* 7.157 L* ABG pCO2 (Temp Corrct 114 H 80 H POC ABG pO2 at Pt Temp 165 73 POC ABG O2 Sat 98.0 H 89.0 L Tevin Test NA NA O2 Delivery Device BIPAP Ventilator POC O2 Rate 12 16 Minute Ventilation 7.2 POC FiO2 100 60 Tidal Volume 450 PEEP 5 IPAP 12 POC Sodium 130 L 131 L Sodium POC Potassium 4.3 4.3 Potassium Chloride Carbon Dioxide Anion Gap BUN Creatinine Est Cr Clr Drug Dosing Est GFR ( Amer) Est GFR (Non-Af Amer) BUN/Creatinine Ratio Glucose POC Glucose (other) 129 H Calcium Phosphorus Magnesium Total Bilirubin AST ALT Alkaline Phosphatase Total Protein Albumin Globulin Albumin/Globulin Ratio Fluid Neutrophils % Fluid Lymphocytes % Fluid Eosinophils % Fl Monocyt/Macrophag % Fluid Comment Random Vancomycin 02/24/21 02/24/21 13:39 20:22 WBC RBC Hgb POC Hgb 8.8 L 12.9 L Hct POC Hct 26 L 38 L MCV MCH MCHC RDW Std Deviation RDW Coeff of Aysha Plt Count MPV Immature Gran % (Auto) Neut % (Auto) Lymph % (Auto) Merrick % (Auto) Eos % (Auto) Baso % (Auto) Neut # (Auto) Lymph # (Auto) Merrick # (Auto) Eos # (Auto) Baso # (Auto) Immature Gran # (Auto) Absolute Nucleated RBC Nucleated RBC % (auto) Polychromasia Basophilic Stippling Stomatocytes PT INR APTT PTT Ratio Sample Site Art Line Art Line POC pH 7.22 L 7.34 L POC pCO2 67 H 52 H POC pO2 108 H 61 L POC HCO3 27 H 28 H POC Total CO2 29 30 POC Base Excess -1.0 2.0 H ABG pH (Temp Correct) 7.225 L 7.342 L ABG pCO2 (Temp Corrct 65 H 52 H POC ABG pO2 at Pt Temp 104 61 POC ABG O2 Sat 97.0 H 89.0 L Tevin Test NA NA O2 Delivery Device Ventilator Ventilator POC O2 Rate 20 26 Minute Ventilation 8.9 POC FiO2 60 40 Tidal Volume 450 450 PEEP 8 8 IPAP POC Sodium 130 L 134 L Sodium POC Potassium 4.4 3.1 L Potassium Chloride Carbon Dioxide Anion Gap BUN Creatinine Est Cr Clr Drug Dosing Est GFR ( Amer) Est GFR (Non-Af Amer) BUN/Creatinine Ratio Glucose POC Glucose (other) Calcium Phosphorus Magnesium Total Bilirubin AST ALT Alkaline Phosphatase Total Protein Albumin Globulin Albumin/Globulin Ratio Fluid Neutrophils % Fluid Lymphocytes % Fluid Eosinophils % Fl Monocyt/Macrophag % Fluid Comment Random Vancomycin Medications Administered Current Inpatient Medications Hydrocodone Bitart/Acetaminophen (Hydrocodone/Acetamophen 5/325mg Tab) 1 tab PO BID PRN PRN Reason: pain 4-10 Stop: 03/04/21 16:03 Last Admin: 02/20/21 19:49 Dose: 1 tab Documented by: Albuterol (Albut/Ipratrop 3mg/0.5mg Neb 3 Ml Vial) 3 ml INH Q6R PRN PRN Reason: Shortness Of Breath Stop: 03/20/21 16:03 Amiodarone HCl (Amiodarone 200 Mg Tab) 100 mg PO Q12H KORY Stop: 03/20/21 16:29 Last Admin: 02/24/21 16:44 Dose: 100 mg Documented by: Aspirin (Aspirin 81 Mg Chew) 81 mg PO DAILY KORY Stop: 03/21/21 08:59 Last Admin: 02/24/21 08:25 Dose: 81 mg Documented by: Atorvastatin Calcium (Atorvastatin 10 Mg Tab) 10 mg PO HS KORY Stop: 03/21/21 20:59 Last Admin: 02/24/21 20:25 Dose: 10 mg Documented by: Calcium Carbonate (Calcium Carbonate 1,250 Mg/5 Ml Udc) 1,250 mg PO TIDM KORY Stop: 03/25/21 11:59 Last Admin: 02/24/21 16:44 Dose: 1,250 mg Documented by: Diclofenac Sodium (Diclofenac Sod 1% Gel 100 Gm Tube) 2 gm EXT TID KORY Stop: 03/20/21 16:03 Last Admin: 02/24/21 20:25 Dose: 2 gm Documented by: Docusate Sodium (Docusate Sodium Syrup 100 Mg/10 Ml Udc) 100 mg PO BID [facility] Stop: 03/21/21 08:59 Last Admin: 02/24/21 20:24 Dose: 100 mg Documented by: Heparin Sodium (Beef Lung) (Heparin 10 Unit/Ml 5 Ml Flush) 5 ml FLUSH PRN PRN PRN Reason: Flush Stop: 03/20/21 22:51 Piperacillin Sod/Tazobactam (Sod 4.5 gm/ Dextrose) 120 mls @ 30 mls/hr IV Q12H [facility]; Protocol Stop: 03/01/21 16:59 Last Infusion: 02/24/21 20:25 Dose: Infused Documented by: Norepinephrine Bitartrate (Levophed/D5w) 8 mg in 508 mls @ 24.251 mls/hr IV .[id number] [facility]; Protocol Stop: 03/24/21 13:44 Last Admin: 02/24/21 21:20 Dose: 0.08 mcg/kg/min, 38.8 mls/hr Documented by: Caspofungin 50 mg/ Sodium (Chloride) 260 mls @ 260 mls/hr IV Q24H [facility] Stop: 03/26/21 08:59 Last Infusion: 02/24/21 09:31 Dose: Infused Documented by: Vasopressin 20 units/ Sodium (Chloride) 101 mls @ 12.12 mls/hr IV .Q8H20M [facility] Stop: 03/25/21 14:44 Last Admin: 02/24/21 16:43 Dose: 0.04 unit/min, 12.1 mls/hr Documented by: Ketorolac Tromethamine (Ketorolac Tromethamine 15 Mg/Ml Vial) 15 mg IV Q6H PRN PRN Reason: Temperature > 38 C Stop: 02/26/21 19:08 Last Admin: 02/22/21 19:43 Dose: 15 mg Documented by: Lansoprazole (Lansoprazole 30 Mg Soltab) 30 mg PO BID [facility]; Protocol Stop: 03/21/21 08:59 Last Admin: 02/24/21 20:24 Dose: 30 mg Documented by: Midodrine (Midodrine Hcl 2.5 Mg Tab) 7.5 mg PO TID@0800,1200,1700 [facility] Stop: 03/26/21 11:59 Last Admin: 02/24/21 16:44 Dose: 7.5 mg Documented by: Miscellaneous Information (Vancomycin Consult Active) 1 ea N/A UD PRN PRN Reason: Consult Stop: 03/23/21 12:48 Miscellaneous Information (Piperacill/Tazobac Consult Active) 1 ea N/A UD PRN PRN Reason: Consult Stop: 03/24/21 07:57 Nutritional Formula (Peptamen Intense Vhp 1.0 Jose 1,000 Ml Bag) 1,000 ml PEG UD [facility]; Protocol Stop: 03/26/21 11:44 Last Admin: 02/24/21 13:02 Dose: 1,000 ml Documented by: Sevelamer HCl (Sevelamer Hcl 800 Mg Tablet) 2,400 mg PO TIDM [facility] Stop: 03/20/21 16:59 Last Admin: 02/24/21 09:30 Dose: Not Given Documented by: Sterile Water (Tube Feeding Water Flush) 60 ml GT QS [facility] Stop: 03/22/21 15:59 Last Admin: 02/24/21 16:43 Dose: 60 ml Documented by: Vitamin D (Cholecalciferol 1,000 Units 25 Mcg Tab) 2,000 units PO DAILY [facility] Stop: 03/21/21 08:59 Last Admin: 02/24/21 08:23 Dose: 2,000 units Documented by: Warfarin Sodium (Warfarin Sod 7.5 Mg Tab) 7.5 mg PO DAILY@1600 [facility] Stop: 03/21/21 15:59 Last Admin: 02/23/21 16:20 Dose: 7.5 mg Documented by: PG Care Time/CCT Total # of Minutes Spent Total Time Spent with Patient: Total time spent is greater than 50% in coordination of care (as documented) at patient's floor/unit and/or counseling patient: Coding Level of Care Code 19451 Subseq Hosp Care Lvl 3 Diagnoses Fungemia B49 Acute on chronic respiratory failure with hypoxia and hypercapnia J96.21; J9 6.22 Heme positive stool R19.5 DVT (deep venous thrombosis) I82.621 Affected thrombotic vein of extremity: unspecified vein of extremity Chronicity: acute DVT location: upper extremity Laterality: right Acute metabolic encephalopathy G93.41 Hypoxia R09.02 Sepsis A41.9 Weakness R53.1 ESRD (end stage renal disease) on dialysis N18.6; Z99.2 Anemia D64.9 COPD (chronic obstructive pulmonary disease) J44.9 COPD type: unspecified COPD JORDAN treated with BiPAP G47.33 Afib I48.0 Atrial fibrillation type: paroxysmal Chronic respiratory failure with hypoxia J96.11 Neuropathy G62.9 Ryan esophagus K22.70 Critical illness myopathy G72.81 Morbid obesity E66.01 (1) DVT (deep venous thrombosis) Affected thrombotic vein of extremity: unspecified vein of extremity Chronicity: acute DVT location: upper extremity Laterality: right Qualified Code(s): I82.621 - Acute embolism and thrombosis of deep veins of right upper extremity (2) Afib Atrial fibrillation type: paroxysmal Qualified Code(s): I48.0 - Paroxysmal atrial fibrillation (3) COPD (chronic obstructive pulmonary disease) COPD type: unspecified COPD Qualified Code(s): J44.9 - Chronic obstructive pulmonary disease, unspecified
[2021-02-25] MEDS: TUBE FEEDING WATER FLUSH GT SCH ×3 (00:08→16:59)
[2021-02-25] MEDS ORDERED: fentaNYL citrate 100 MCG/2 ML VIAL ONE (01:19)
[2021-02-25] MEDS: VASOPRESSIN 20 UNITS in 0.9 % SODIUM CHLORIDE 100 ML IV SCH ×2 (01:38→09:13)
--- NOTE | 2021-02-25 03:18 | Consultation Report ---
DATE OF CONSULTATION: 02/24/2021 OPHTHALMOLOGY CONSULTATION NOTE CHIEF COMPLAINT AND HISTORY OF PRESENT ILLNESS: This is a 70-year-old male with end-stage renal disease who presented to the [facility] Emergency Department on 02/18/2021 after being sent from [facility] due to a right lower extremity deep vein thrombosis. He has multiple comorbidities including COPD, obstructive sleep apnea, hypertension, atrial fibrillation, and morbid obesity. He has had a recent complicated history of events requiring prolonged hospitalizations and rehab assignments over the past several months secondary to respiratory failure requiring tracheostomy and development of renal failure. He developed acute metabolic encephalopathy on 02/21/2021 and was transferred to the intensive care unit. There is concern at this point for sepsis and he was started on antibiotics and blood and sputum cultures were done. There was an infectious disease consult done on 02/23/2021 with diagnosis of fungemia with yeast being the most likely pathogen and he still continues with empiric antibiotics, vancomycin and Zosyn, in addition to caspofungin. He is currently ventilator dependent and is unable to answer any questions. All history was obtained from chart notes. PAST MEDICAL HISTORY: Atrial fibrillation, end-stage renal disease, COPD, obstructive sleep apnea, morbid obesity, hypertension, pulmonary hypertension, deep vein thrombosis. MEDICATIONS: Please see medication list. ALLERGIES: LEVOFLOXACIN. SOCIAL HISTORY: He is a former smoker. PHYSICAL EXAMINATION: His visual acuity was unable to be determined secondary to his mental status. His intraocular pressures were 12 in the right eye and 15 in the left eye by Dale-Pen. His pupil reactions were 3 mm with reaction down to 2 mm with no afferent pupillary defect. His confrontational visual siegel and extraocular movements were unable to be assessed secondary to his mental status. His anterior segment exam on the right eye shows trace marginal hyperemia and some mild crusting of the eyelids. His conjunctivae and sclerae are white and quiet. His cornea shows 1-2+ superficial punctate keratitis. His anterior chamber is deep and formed. His iris is normal and reactive and his lens has 1+ nuclear sclerosis. The anterior segment exam on the left side again shows trace marginal hyperemia of the eyelids. The conjunctiva and sclerae are white and quiet. The cornea shows 1-2+ superficial punctate keratitis. The anterior chamber is deep and formed. The iris is normal and the lens has 1+ nuclear sclerosis. His dilated exam on the right shows clear vitreous, a cup-to-disc ratio of 0.35 with a sharp and pink nerve. The macula, vessels, and peripheral retina all appear within normal limits. On the left side, there is likewise a clear vitreous, has cup-to-disc ratio of 0.45. In the macula, vessels and peripheral retina are all within normal limits. ASSESSMENT AND PLAN: This is a 70-year-old male with altered mental status secondary to sepsis and respiratory failure. We were consulted due to blood cultures growing yeast and the exam was done to rule out fungal endophthalmitis. His dilated exam today shows no evidence of endophthalmitis in either eye. His vision and extraocular movements could not be assessed due to his mental status. He does have [id number] superficial keratitis from surface dryness secondary to inadequate blinking. I would recommend that the primary team put lubricating ointment into his eyes 4 times daily to help prevent his corneas from drying out significantly. He also has very mild cup-to-disc ratio asymmetry and I would recommend outpatient workup with OCT imaging to assess his retinal nerve fiber layer status at some point once he is discharged. His intraocular pressures, thankfully, are normal in both eyes. Thank you for this consult. DERREK
[2021-02-25] MEDS: AMIODARONE 200 MG TAB PO SCH ×2 (04:30→16:58)
[2021-02-25] MEDS: fentaNYL citrate 100 MCG/2 ML VIAL IV PRN ×2 (04:31→06:43)
[2021-02-25] MEDS: KETOROLAC TROMETHAMINE 15 MG/ML VIAL IV PRN (04:31)
[2021-02-25] MEDS: PIPERACILLIN/TAZOBACTAM 4.5 GM in DEXTROSE 5% 100 ML IV SCH ×2 (04:55→16:59)
[2021-02-25 05:08] LABS: iSTAT Allen Test Pass; iSTAT Art Bld Gas pCO2 Correct 57 mmHg (35-46); iSTAT Art Bld Gas pH Corrected 7.322 (7.35-7.45); iSTAT Arterial Blood Gas HCO3 29 meg/L (19-24); iSTAT Arterial Blood Gas pCO2 56 mmHg (35-46); iSTAT Arterial Blood Gas pH 7.33 (7.35-7.45); iSTAT Arterial Blood Gas pO2 < 32 mmHg (80-95); iSTAT Arterial Blood Gas pO2 C 29; iSTAT Carbon Dioxide 31 mmol/L (24-31); iSTAT FiO2 40 %; iSTAT Hematocrit 23 % (42-52); iSTAT Hemoglobin 7.8 g/dl (14.0-18.0); iSTAT Potassium 3.3 mmol/L (3.3-5.0); iSTAT Site Art Line; iSTAT Sodium 134 mmol/L (135-144)
[2021-02-25 05:08] LABS: iSTAT Allen Test Pass; iSTAT Art Bld Gas pCO2 Correct 56 mmHg (35-46); iSTAT Art Bld Gas pH Corrected 7.326 (7.35-7.45); iSTAT Arterial Blood Gas HCO3 29 meg/L (19-24); iSTAT Arterial Blood Gas pCO2 54 mmHg (35-46); iSTAT Arterial Blood Gas pH 7.34 (7.35-7.45); iSTAT Arterial Blood Gas pO2 84 mmHg (80-95); iSTAT Arterial Blood Gas pO2 C 90; iSTAT Carbon Dioxide 30 mmol/L (24-31); iSTAT FiO2 50 %; iSTAT Hematocrit 25 % (42-52); iSTAT Hemoglobin 8.5 g/dl (14.0-18.0); iSTAT Potassium 3.3 mmol/L (3.3-5.0); iSTAT Site L Radial; iSTAT Sodium 133 mmol/L (135-144)
[2021-02-25 05:17] LABS: Basophils # (auto) 0.06 K/uL (0-0.2); Basophils % (auto) 0.5 %; Eosinophils # (auto) 0.32 K/uL (0-0.5); Eosinophils % (auto) 2.7 %; Hematocrit (blood only) 23.8 % (42-52); Hemoglobin 7.1 g/dL (14.0-18.0); Immature Granulocytes # (auto) 0.07 K/uL (0.00-0.02); Immature Granulocytes % (auto) 0.6 %; Lymphocytes # (auto) 2.57 K/uL (1.2-3.4); Lymphocytes % (auto) 21.5 %; Mean Corpuscular Hemoglobin 27.4 pg (25-34); Mean Corpuscular Hgb Conc 29.8 g/dL (32-36); Mean Corpuscular Volume 91.9 fL (80-100); Mean Platelet Volume 8.5 fL (7.4-10.4); Monocytes # (auto) 1.05 K/uL (0.11-0.59); Monocytes % (auto) 8.8 %; Neutrophils # (auto) 7.88 K/uL (1.4-6.5); Neutrophils % (auto) 65.9 %; Nucleated RBC % (auto) 1.7 %; Platelet Count 287 K/uL (130-400); RDW Coefficient of Variation 18.5 % (11.5-14.5); RDW Standard Deviation 62.4 fL (36.4-46.3); Red Blood Count 2.59 M/uL (4.7-6.1); White Blood Count 11.95 K/uL (4.8-10.8)
[2021-02-25 05:41] LABS: Prothrombin Time 78.7 Seconds (9.0-12.0)
[2021-02-25 05:44] LABS: BUN Creatinine Ratio 6.8 (10-20); Creatinine Clr Calc Pharmacy 27.1 ml/min; Est GFR (African American) 19.7; Magnesium 2.3 mg/dl (1.8-2.4); Potassium 3.3 mmol/L (3.5-5.1)
[2021-02-25 05:47] LABS: Albumin Globulin Ratio 0.5 (0.9-2); Bilirubin,Total 0.3 mg/dl (0.2-1); Globulin 4.4 gm/dl (2.5-4.0); Phosphorus 2.5 mg/dl (2.5-4.9); Total Protein 6.4 gm/dl (6.4-8.2)
[2021-02-25 05:48] LABS: INR 9.3 (0.9-1.1)
[2021-02-25] MEDS ORDERED: PHYTONADIONE 10 MG in SODIUM CHLORIDE 0.9% 50 ML IV ONE (05:50)
[2021-02-25 06:17] LABS: Basophilic Stippling 1+; Polychromasia 1+
--- NOTE | 2021-02-25 08:02 | XRay Report ---
SINGLE VIEW CHEST CLINICAL HISTORY: Respiratory failure. FINDINGS: An AP, portable, upright chest radiograph is compared to study dated 02/24/2021. A tracheost katerine and right-sided central venous catheter are unchanged in position. The heart is markedly enlarged noting atherosclerotic calcification of the thoracic aorta. There is pulmonary vascular congestion. Bilateral airspace opacities are similar to previous. There are layering pleural effusions with bibas ilar consolidation. No pneumothorax is seen. The skeletal structures are osteopenic. The bony thorax is grossly intact. IMPRESSION: 1. Cardiomegaly with evidence of congestive failure. 2. Bilateral airspace opacities likely represent interstitial edema. This is unchanged to slightly pr ogressed from yesterday. Correlate clinically for evidence of a superimposed infectious/inflammatory pneumonitis. 3. Layering pleural effusions with bibasilar consolidation. ACT 112: Negative or not required by law. Electronically signed by: Zane Cross M.D. 02/25/2021 8:01 AM
[2021-02-25] MEDS ORDERED: SODIUM CHLORIDE 0.9% 250 ML IV PRN ×2 (08:20→09:55)
--- NOTE | 2021-02-25 08:31 | Critical Care Progress Note ---
Date of Service February 25, 2021 Assessment & Plan (1) Sepsis: Neurologic: Acute encephalopathy likely secondary to hypercapnia and/or metabolic issues. Somewhat more responsive today and able to follow some simple commands but not communicative. CT head with no evidence of acute intracranial findings. Partially opacified right mastoid air cells noted. Pulmonary: ABGs today showing improvement in hypercapnia--still mildly acidotic. Continue mechanical ventilation through cuffed trach. Lavage cultures collected and sent to lab--results pending. Oxygenating well on mechanical vent. Cardiovascular: Echocardiogram with EF 60-65%, mild LVH. Patient continues to be hypotensive likely secondary to sepsis. Central line is in place and patient has Levophed and vasopressin infusing. Midodrine increased to 7.5 mg TID yesterday PM. Continue amiodarone for history of atrial fibrillation. Gastrointestinal: PEG tube in place, trickle feeds at 10 cc/hr. NPO. Had positive Hemoccult. In light of this and decreased Hgb, dc'd lansoprazole and ordered Protonix 80mg IV push followed by Protonix gtt. GI consulted. Renal: Received HD yesterday. Continue calcium carbonate for phosphorus binding. May require transfer to tertiary center for CRRT. Ideally needs to have tunneled dialysis catheter removed--may require transfer to tertiary care center for removal and eventual replacement of the catheter by Interventional Radiology. Potassium repleted today. Infectious disease: Initial blood cultures growing yeast, repeat cultures negative thus far. Echocardiogram without obvious vegetation. Infectious Disease consulted and recommend DC antibiotics but will hold off on that for now due to u ndifferentiated septic shock and pending repeat cultures. Will recheck procal today. Continue caspofungin. Ideally needs to have tunneled dialysis catheter removed, as above. No significant intra-abdominal pathology seen on CT abdomen & pelvis. 3.6 cm infrarenal abdominal aortic aneurysm noted. Hematologic: Anemia of chronic disease. His hemoglobin has decreased to 7.1. Will transfuse with 1 unit PRBCs--patient's sister gave verbal consent over the phone. Recheck H&H and PT/INR at noon today. INR this AM at 9.3--patient is already off of heparin and warfarin. Endocrine: Hyperglycemia management with the assistance of pharmacy. VTE prophylaxis: No chemical ppx currently due to elevated INR as above CODE STATUS: Full code Family at bedside: Not available due to the COVID-19 pandemic Disposition: Remain in ICU (2) ESRD (end stage renal disease) on dialysis: (3) COPD (chronic obstructive pulmonary disease): (4) DVT (deep venous thrombosis): (5) Acute metabolic encephalopathy: (6) Acute on chronic respiratory failure with hypoxia and hypercapnia: Admission and Anticipated Discharge Date Admission Date: February 18, 2021 Supervising Physician Co-Signing Physician Notes Dr. Hale was the resident-physician during care of patient. I separately evaluated patient for shields portions of the history and the exam. I was present during the critical portion of medical decision making, and I discussed the case with the resident. I generally agree with the findings and plan except for any additions/exceptions noted. Patient with ongoing sepsis and septic shock. Requiring low-dose vasopressors. Tolerated dialysis yesterday. INR is currently elevated to 9.0. Warfarin is being held. We are transfusing 1 unit of blood due to concern of GI bleed. GI is consulted. Patient does have Melonie albicans growing in his blood cultures. Repeat blood cultures negative to date. Ophthalmologic consultation appreciated. No endophthalmitis noted. We will need to remove the dialysis catheter and femoral central line for a line holiday. Unfortunately, we do not have vascular surgery available this week. Will need transfer to a tertiary care center to remove the tunneled dialysis catheter and placement of a new catheter. This was relayed to the patient's sister. This was also discussed with the hospitalist. Transfer will be pursued today. Additionally, may also need IVC filter given history of DVT and hypercoagulable state in a patient with an active GI bleed. Patient will likely need services from interventional radiology which are not available here. I have personally spent 42 minutes of critical care time in the direct management of this patient. This is a life/limb threatening event. This includes time spent evaluating patient, direct bedside care, chart review, placing orders, interpretation of diagnostic studies, discussion with consultants, patient, and/or family members regarding treatment decisions, as well as other required patient management activities. This time is exclusive of all separately billable procedures, and teaching time and separate from and in addition to any other critical care service time. Subjective Patient not responsive to questions but able to follow some simple commands this morning. Followed commands to squeeze with both hands--right stronger than left. Review of Systems Review of Systems: Unobtainable due to cognitive status Physical Exam Constitutional: + ill appearing, + morbidly obese and + altered mental status Eyes: PERRL, conjunctivae normal, anicteric sclerae ENMT: external ear and nose normal, oropharynx normal Neck: + tracheostomy present (size 6 cuffed trach) Respiratory: Auscultation: + diminished lung sounds and + crackles; no rales, no rhonchi and no wheezes Cardiovascular: RRR, no murmur, no edema Heart Sounds: normal S1 and normal S2 Gastrointestinal (Abdomen): Inspection/Auscultation: normal bowel sounds; abdomen not distended Percussion/Palpation: abdomen soft; abdomen nontender Musculoskeletal: Extremities: no cyanosis and no clubbing Skin: no rashes, warm and dry Neurologic: Able to follow simple commands such as squeezing with both hands and looking up. Exterior Designer strength 3/5 on right, 1/5 on left. Results & Data Results & Data ([facility]) Vital Signs (Past 12 Hours) Vital Signs Temp Pulse Resp BP Pulse Ox 02/25/21 06:21 67 154/55 H 99 02/25/21 06:01 46 L 121/35 L 98 02/25/21 06:00 47 L 98 02/25/21 05:45 51 L 128/51 L 98 02/25/21 05:30 50 L 112/46 L 97 02/25/21 05:16 62 96 02/25/21 05:15 65 26 H 136/50 L 95 02/25/21 04:30 67 106/78 90 02/25/21 04:15 55 L 113/46 L 92 02/25/21 04:00 37.4 C 50 L 105/44 L 99 02/25/21 03:54 52 L 123/46 L 99 02/25/21 03:30 52 L 130/52 L 98 02/25/21 03:00 49 L 164/50 H 96 02/25/21 02:30 43 L 147/53 H 95 02/25/21 02:01 54 L 94 02/25/21 02:00 52 L 126/45 L 93 02/25/21 01:32 68 124/82 91 02/25/21 01:29 69 135/45 L 89 L 02/25/21 01:25 82 131/60 87 L 02/25/21 01:01 80 147/112 H 91 02/25/21 01:00 79 91 02/25/21 00:02 72 91 02/25/21 00:01 70 128/86 89 L 02/25/21 00:00 69 90 02/24/21 23:50 58 L 26 H 93 02/24/21 23:00 55 L 94 02/24/21 22:00 54 L 94 02/24/21 21:00 60 94 Vital signs labs and imaging reviewed Resident Activity Tracking Resident Involvement: Resident Care Provided Care Provided: Adult Hospital Medicine (1) DVT (deep venous thrombosis) Affected thrombotic vein of extremity: unspecified vein of extremity Chronicity: acute DVT location: upper extremity Laterality: right Qualified Code(s): I82.621 - Acute embolism and thrombosis of deep veins of right upper extremity (2) COPD (chronic obstructive pulmonary disease) COPD type: unspecified COPD Qualified Code(s): J44.9 - Chronic obstructive pulmonary disease, unspecified
[2021-02-25] MEDS ORDERED: PANTOprazole 80 MG in DEXTROSE 5% 100 ML IV ONE (08:35)
[2021-02-25] MEDS: CALCIUM CARBONATE 1,250 MG/5 ML UDC PO SCH ×3 (09:03→16:57)
[2021-02-25] MEDS: MIDODRINE HCL 2.5 MG TAB PO SCH ×3 (09:03→16:58)
[2021-02-25] MEDS: CASPOFUNGIN 50 MG in SODIUM CHLORIDE 0.9% 250 ML IV SCH (09:04)
[2021-02-25] MEDS: DOCUSATE SODIUM SYRUP 100 MG/10 ML UDC PO SCH ×2 (09:04→20:32)
[2021-02-25] MEDS: CHOLECALCIFEROL 1,000 UNITS 25 MCG TAB PO SCH (09:04)
[2021-02-25] MEDS: POTASSIUM CHLORIDE / WTR 20 MEQ/100 ML PLCT IV SCH ×2 (09:05→11:59)
[2021-02-25] MEDS: DICLOFENAC SOD 1% GEL 100 GM TUBE EXT SCH ×3 (09:06→21:52)
[2021-02-25] MEDS: ASPIRIN 81 MG CHEW PO SCH (09:09)
--- NOTE | 2021-02-25 09:10 | Billing Data ---
Date of Service February 25, 2021 Coding Level of Care Code Critical Care 1st 30-74 mins Time Spent (min) 42
[2021-02-25] MEDS: PANTOprazole 40 MG in DEXTROSE 5% 100 ML IV SCH ×4 (09:13→23:39)
--- NOTE | 2021-02-25 10:19 | Pharmacy Report ---
Pharmacy Abx Dose Short Note - Date of Service February 25, 2021 - Assessment & Plan Assessment * 70 year old M receiving VANCOMYCIN + ZOSYN + CASPOFUNGIN for treatment of septic shock, possible pulm source, possible infected HD cath. * + risk factors for resistant organism: recent prolonged hospitalizations, receipt of broad-spectrum abx, h/o MRSA PNA, hemodialysis * Day # 5 Vancomycin, Day # 4 Zosyn, Day 3 Caspofungin * Melonie albicans growing in 2 of 2 BLCXs from 02/21, repeat BLCXs 02/22 with no growth to date * 02/21 sputum: normal jeni * 02/24 bronch wash: pending (no yeast or bacteria seen in smear) * There may be plans to remove THC. * Patient weaned off norepi but vasopressin for pressor support Plan Vancomycin * Random AM level therapeutic at 20.5 mcg/mL * 3.5 hr HD completed yesterday * 500mg vancomycin was administered prior to HD treatment yesterday * No HD planned today. No need to redose vanco today given minimal extra-renal elimination * Will repeat random vanco level w/ AM labs tomorrow * Plan to repeat dosing when level 15-20 or anticipated to be so following HD treatment; goal trough 15-20mcg/mL for septic shock / possible pulm source Zosyn * eCrCl < 20, HD dependent: continue 4.5gm ext-infusion dosing Q 12 hrs Pharmacy will continue to follow and will adjust dose/frequency as necessary. Thank you.
--- NOTE | 2021-02-25 11:00 | Gastrointestinal Consultation ---
Date of Consultation February 25, 2021 Assessment & Plan (1) Heme positive stool: Patient is a 70 y.o. male admitted with respiratory failure, ESRD, DVT and sepsis with heme positive stool in the setting of supratherapeutic INR. PEG in place and is functioning well. 1. Reinforced the importance of avoidance gauze placement under PEG bumper to reduce risk of buried bumper syndrome, gastric ulceration and PEG dislodgment. 2. Recommend conservative management with INR reversal. 3. Continue PPI ggt with Protonix 8 mg/hr. H&H is stable at present, continue to trend and notify us of any significant decline. Thank you for allowing us to participate in the care of this patient. If you have any questions or concerns, please do not hesitate to contact us. Supervising Physician Co-Signing Physician Notes I personally evaluated the patient and agree with the findings as documented by SHANE Paris Exam: abd: soft, nt, nd History of Present Illness Reason for Consultation: Heme positive stool Requesting Physician: Dr. Hale Attending Physician: Sadi Ruiz DO History of Present Illness Patient is a 70 y.o. male with a history of ESRD admitted from [facility] with DVT. He has a complicated PMH including morbid obesity, COPD, JORDAN, HTN, and A Fib. He remains in the ICU on mechanical ventilation due to respiratory failure. He has developed metabolic encephalopathy due to sepsis. GI has been consulted in regard to heme positive stool and melena in the setting of supratherapeutic INR of 9.3. This is currently being reversed. He has been started on a Protonix drip at 8 mg/hr. No history is able to be obtained from the patient due to mechanical ventilation and is obtained solely from nursing and chart review. Allergies Allergy/AdvReac Type Severity Reaction Status Date / Time levofloxacin [From Levaquin] Allergy Unknown can't Unverified 02/18/21 10:22 breath/swelling Home Medications Medication Instructions Recorded Confirmed Type amiodarone 100 mg FEEDING TUBE Q12H 02/18/21 02/18/21 History apixaban 2.5 mg PO BID 02/18/21 02/18/21 History aspirin 81 mg FEEDING TUBE DAILY 02/18/21 02/18/21 History atorvastatin [Lipitor] 10 mg FEEDING TUBE HS 02/18/21 02/18/21 History cholecalciferol (vitamin D3) 50 mcg FEEDING TUBE DAILY 02/18/21 02/18/21 History [Vitamin D3] diclofenac sodium 2 g TOPICAL TID 02/18/21 02/18/21 History docusate sodium 100 mg FEEDING TUBE BID 02/18/21 02/18/21 History heparin (porcine) 5,000 unit SUBCUT Q12H 02/18/21 02/18/21 History hydrocodone-acetaminophen 1 tab FEEDING TUBE BID PRN 02/18/21 02/18/21 History ipratropium-albuterol 3 ml INHALATION Q6H PRN 02/18/21 02/18/21 History ipratropium-albuterol [Combivent 1 puff INHALATION QID 02/18/21 02/18/21 History Respimat] omeprazole magnesium [Prilosec] 40 mg FEEDING TUBE BID 02/18/21 02/18/21 History pediatric multivitamin [Multiple 1 tab FEEDING TUBE DAILY 02/18/21 02/18/21 History Vitamins] sevelamer carbonate 2.4 g FEEDING TUBE TIDM 02/18/21 02/18/21 History Patient History Medical History Afib Anemia Ryan esophagus Chronic respiratory failure with hypoxia Constipation COPD (chronic obstructive pulmonary disease) DVT (deep venous thrombosis) ESRD (end stage renal disease) on dialysis Hypertension Morbid obesity Neuropathy JORDAN treated with BiPAP Pulmonary hypertension Renal failure, chronic Weakness Social History Smoking Status: Former smoker Smoking End Date: 30 years ago; Hx Alcohol Use: No Preferred Language: Persian Communication Ability: Effective Beliefs That Will Affect Care: None marital status: Single Current Living Situation: Other Other Information That Helps Us Care for You: No Feels Safe at Home: Yes Assistive Devices: Oxygen - Continuous Review of Systems Review of Systems: Unobtainable due to cognitive status Physical Exam Constitutional: + morbidly obese Neck: + tracheostomy present Respiratory: Auscultation: + diminished lung sounds Cardiovascular: Rate/Rhythm: regular rate and regular rhythm Gastrointestinal (Abdomen): Inspection/Auscultation: + hyperactive bowel sounds Percussion/Palpation: abdomen soft PEG in place LUQ Results & Data ([facility]) Vital Signs (Past 12 Hours) Vital Signs Temp Pulse Resp BP Pulse Ox 02/25/21 10:00 63 131/55 L 96 02/25/21 09:15 68 113/42 L 96 02/25/21 08:20 55 L 27 H 100 02/25/21 08:00 37.2 C 58 L 99/47 L 100 02/25/21 07:01 54 L 97/36 L 99 02/25/21 06:21 67 154/55 H 99 02/25/21 06:01 46 L 121/35 L 98 02/25/21 06:00 47 L 98 02/25/21 05:45 51 L 128/51 L 98 02/25/21 05:30 50 L 112/46 L 97 02/25/21 05:16 62 96 02/25/21 05:15 65 26 H 136/50 L 95 02/25/21 04:30 67 106/78 90 02/25/21 04:15 55 L 113/46 L 92 02/25/21 04:00 37.4 C 50 L 105/44 L 99 02/25/21 03:54 52 L 123/46 L 99 02/25/21 03:30 52 L 130/52 L 98 02/25/21 03:00 49 L 164/50 H 96 02/25/21 02:30 43 L 147/53 H 95 02/25/21 02:01 54 L 94 02/25/21 02:00 52 L 126/45 L 93 02/25/21 01:32 68 124/82 91 02/25/21 01:29 69 135/45 L 89 L 02/25/21 01:25 82 131/60 87 L 02/25/21 01:01 80 147/112 H 91 02/25/21 01:00 79 91 02/25/21 00:02 72 91 02/25/21 00:01 70 128/86 89 L 02/25/21 00:00 69 90 02/24/21 23:50 58 L 26 H 93 02/24/21 23:00 55 L 94 Laboratory Results Abnormal lab results 02/24/21 02/24/21 02/24/21 Range/Units 10:55 13:35 13:39 WBC (4.8-10.8) K/uL RBC (4.7-6.1) M/uL Hgb (14.0-18.0) g/dL POC Hgb 8.5 L 8.8 L (14.0-18.0) g/dl Hct (42-52) % POC Hct 25 L 26 L (42-52) % MCHC (32-36) g/dL RDW Std Deviation (36.4-46.3) fL RDW Coeff of Aysha (11.5-14.5) % Neut # (Auto) (1.4-6.5) K/uL Rains # (Auto) (0.11-0.59) K/uL Immature Gran # (Auto) (0.00-0.02) K/uL Absolute Nucleated RBC (0-0) K/uL PT (9.0-12.0) Seconds INR (0.9-1.1) POC pH 7.15 L* 7.22 L (7.35-7.45) POC pCO2 81 H 67 H (35-46) mmHg POC pO2 75 L 108 H (80-95) mmHg POC HCO3 28 H 27 H (19-24) rosi/L POC Base Excess (-9-1.8) rosi/L ABG pH (Temp Correct) 7.157 L* 7.225 L (7.35-7.45) ABG pCO2 (Temp Corrct 80 H 65 H (35-46) mmHg POC ABG O2 Sat 89.0 L 97.0 H (90-95) % POC Sodium 131 L 130 L (135-144) mmol/L Sodium (136-145) mmol/L POC Potassium (3.3-5.0) mmol/L Potassium (3.5-5.1) mmol/L BUN (7-18) mg/dl Creatinine (0.6-1.4) mg/dl BUN/Creatinine Ratio (10-20) Glucose (70-99) mg/dl POC Glucose (other) 129 H (70-99) mg/dl Calcium (8.5-10.1) mg/dl Alkaline Phosphatase (45-117) U/L Albumin (3.4-5.0) gm/dl Globulin (2.5-4.0) gm/dl Albumin/Globulin Ratio (0.9-2) Procalcitonin (0-0.5) ng/ml Stool Occult Bld Scrn (Negative) Crossmatch 02/24/21 02/25/21 02/25/21 Range/Units 20:22 00:29 04:43 WBC (4.8-10.8) K/uL RBC (4.7-6.1) M/uL Hgb (14.0-18.0) g/dL POC Hgb 12.9 L 7.8 L (14.0-18.0) g/dl Hct (42-52) % POC Hct 38 L 23 L (42-52) % MCHC (32-36) g/dL RDW Std Deviation (36.4-46.3) fL RDW Coeff of Aysha (11.5-14.5) % Neut # (Auto) (1.4-6.5) K/uL Rains # (Auto) (0.11-0.59) K/uL Immature Gran # (Auto) (0.00-0.02) K/uL Absolute Nucleated RBC (0-0) K/uL PT (9.0-12.0) Seconds INR (0.9-1.1) POC pH 7.34 L 7.33 L (7.35-7.45) POC pCO2 52 H 56 H (35-46) mmHg POC pO2 61 L < 32 L (80-95) mmHg POC HCO3 28 H 29 H (19-24) rosi/L POC Base Excess 2.0 H 3.0 H (-9-1.8) rosi/L ABG pH (Temp Correct) 7.342 L 7.322 L (7.35-7.45) ABG pCO2 (Temp Corrct 52 H 57 H (35-46) mmHg POC ABG O2 Sat 89.0 L 47.0 L (90-95) % POC Sodium 134 L 134 L (135-144) mmol/L Sodium (136-145) mmol/L POC Potassium 3.1 L (3.3-5.0) mmol/L Potassium (3.5-5.1) mmol/L BUN (7-18) mg/dl Creatinine (0.6-1.4) mg/dl BUN/Creatinine Ratio (10-20) Glucose (70-99) mg/dl POC Glucose (other) 124 H (70-99) mg/dl Calcium (8.5-10.1) mg/dl Alkaline Phosphatase (45-117) U/L Albumin (3.4-5.0) gm/dl Globulin (2.5-4.0) gm/dl Albumin/Globulin Ratio (0.9-2) Procalcitonin (0-0.5) ng/ml Stool Occult Bld Scrn (Negative) Crossmatch 02/25/21 02/25/21 02/25/21 Range/Units 04:52 05:07 05:07 WBC 11.95 H (4.8-10.8) K/uL RBC 2.59 L (4.7-6.1) M/uL Hgb 7.1 L (14.0-18.0) g/dL POC Hgb 8.5 L (14.0-18.0) g/dl Hct 23.8 L (42-52) % POC Hct 25 L (42-52) % MCHC 29.8 L (32-36) g/dL RDW Std Deviation 62.4 H (36.4-46.3) fL RDW Coeff of Aysha 18.5 H (11.5-14.5) % Neut # (Auto) 7.88 H (1.4-6.5) K/uL Rains # (Auto) 1.05 H (0.11-0.59) K/uL Immature Gran # (Auto) 0.07 H (0.00-0.02) K/uL Absolute Nucleated RBC 0.20 H (0-0) K/uL PT 78.7 H (9.0-12.0) Seconds INR 9.3 H* (0.9-1.1) POC pH 7.34 L (7.35-7.45) POC pCO2 54 H (35-46) mmHg POC pO2 (80-95) mmHg POC HCO3 29 H (19-24) rosi/L POC Base Excess 3.0 H (-9-1.8) rosi/L ABG pH (Temp Correct) 7.326 L (7.35-7.45) ABG pCO2 (Temp Corrct 56 H (35-46) mmHg POC ABG O2 Sat (90-95) % POC Sodium 133 L (135-144) mmol/L Sodium (136-145) mmol/L POC Potassium (3.3-5.0) mmol/L Potassium (3.5-5.1) mmol/L BUN (7-18) mg/dl Creatinine (0.6-1.4) mg/dl BUN/Creatinine Ratio (10-20) Glucose (70-99) mg/dl POC Glucose (other) (70-99) mg/dl Calcium (8.5-10.1) mg/dl Alkaline Phosphatase (45-117) U/L Albumin (3.4-5.0) gm/dl Globulin (2.5-4.0) gm/dl Albumin/Globulin Ratio (0.9-2) Procalcitonin (0-0.5) ng/ml Stool Occult Bld Scrn (Negative) Crossmatch 02/25/21 02/25/21 02/25/21 Range/Units 05:07 05:51 08:23 WBC (4.8-10.8) K/uL RBC (4.7-6.1) M/uL Hgb (14.0-18.0) g/dL POC Hgb (14.0-18.0) g/dl Hct (42-52) % POC Hct (42-52) % MCHC (32-36) g/dL RDW Std Deviation (36.4-46.3) fL RDW Coeff of Aysha (11.5-14.5) % Neut # (Auto) (1.4-6.5) K/uL Rains # (Auto) (0.11-0.59) K/uL Immature Gran # (Auto) (0.00-0.02) K/uL Absolute Nucleated RBC (0-0) K/uL PT (9.0-12.0) Seconds INR (0.9-1.1) POC pH (7.35-7.45) POC pCO2 (35-46) mmHg POC pO2 (80-95) mmHg POC HCO3 (19-24) rosi/L POC Base Excess (-9-1.8) rosi/L ABG pH (Temp Correct) (7.35-7.45) ABG pCO2 (Temp Corrct (35-46) mmHg POC ABG O2 Sat (90-95) % POC Sodium (135-144) mmol/L Sodium 135 L (136-145) mmol/L POC Potassium (3.3-5.0) mmol/L Potassium 3.3 L D (3.5-5.1) mmol/L BUN 24 H (7-18) mg/dl Creatinine 3.49 H D (0.6-1.4) mg/dl BUN/Creatinine Ratio 6.8 L (10-20) Glucose 122 H (70-99) mg/dl POC Glucose (other) (70-99) mg/dl Calcium 8.0 L (8.5-10.1) mg/dl Alkaline Phosphatase 126 H (45-117) U/L Albumin 2.0 L (3.4-5.0) gm/dl Globulin 4.4 H (2.5-4.0) gm/dl Albumin/Globulin Ratio 0.5 L (0.9-2) Procalcitonin 10.00 H (0-0.5) ng/ml Stool Occult Bld Scrn Positive A (Negative) Crossmatch 02/25/21 Range/Units 08:24 WBC (4.8-10.8) K/uL RBC (4.7-6.1) M/uL Hgb (14.0-18.0) g/dL POC Hgb (14.0-18.0) g/dl Hct (42-52) % POC Hct (42-52) % MCHC (32-36) g/dL RDW Std Deviation (36.4-46.3) fL RDW Coeff of Aysha (11.5-14.5) % Neut # (Auto) (1.4-6.5) K/uL Rains # (Auto) (0.11-0.59) K/uL Immature Gran # (Auto) (0.00-0.02) K/uL Absolute Nucleated RBC (0-0) K/uL PT (9.0-12.0) Seconds INR (0.9-1.1) POC pH (7.35-7.45) POC pCO2 (35-46) mmHg POC pO2 (80-95) mmHg POC HCO3 (19-24) rosi/L POC Base Excess (-9-1.8) rosi/L ABG pH (Temp Correct) (7.35-7.45) ABG pCO2 (Temp Corrct (35-46) mmHg POC ABG O2 Sat (90-95) % POC Sodium (135-144) mmol/L Sodium (136-145) mmol/L POC Potassium (3.3-5.0) mmol/L Potassium (3.5-5.1) mmol/L BUN (7-18) mg/dl Creatinine (0.6-1.4) mg/dl BUN/Creatinine Ratio (10-20) Glucose (70-99) mg/dl POC Glucose (other) (70-99) mg/dl Calcium (8.5-10.1) mg/dl Alkaline Phosphatase (45-117) U/L Albumin (3.4-5.0) gm/dl Globulin (2.5-4.0) gm/dl Albumin/Globulin Ratio (0.9-2) Procalcitonin (0-0.5) ng/ml Stool Occult Bld Scrn (Negative) Crossmatch See Detail PG Care Time/CCT Total # of Minutes Spent Total Time Spent with Patient: Total time spent is greater than 50% in coordination of care (as documented) at patient's floor/unit and/or counseling patient: Coding Level of Care Code 94990 Initial Inpt Care Lvl 3 Diagnoses Heme positive stool R19.5
--- NOTE | 2021-02-25 12:21 | Progress Notes ---
DATE: 02/25/2021 NEPHROLOGY PROGRESS NOTE SUBJECTIVE: Overnight, no new issues. The patient continues to be quite sick. He is on a ventilator now through his tracheostomy. He is still on pressors and is not making urine. He did have dialysis yesterday without significant problem. He is being transferred to a tertiary center possibly later today. OBJECTIVE: VITAL SIGNS: Blood pressure 130/50, pulse rate 67, temperature 36.6, 91% on mechanical ventilator. HEENT: Mucous membranes moist. NECK: Supple and obese, short neck. CHEST: Bilaterally decreased breath sounds with ventilator. CARDIOVASCULAR: S1 and S2 distant, regular. ABDOMEN: Soft, nontender, obese. EXTREMITIES: Show 1+ edema with chronic skin changes. LABORATORY TEST: From this morning was reviewed. Potassium is 3.3, sodium 135, BUN 24, creatinine 3.49. Procalcitonin 10. Chest x-ray done earlier today shows cardiomegaly with evidence of congestive heart failure. ASSESSMENT AND PLAN: The patient is a 70-year-old male who has had a complicated course of event requiring prolonged hospitalization with respiratory failure, prolonged intubation, tracheostomy as well as multiple other complications including severe renal failure requiring dialysis. Renal failure: It is not 100% clear whether this is acute renal failure or end-stage renal disease as we do not have record from his prior issues, but at this time there is no renal recovery. RECOMMENDATIONS: 1. He will need dialysis tomorrow again and maximal attempts for ultrafiltration, which has been a challenge given his sepsis and low blood pressure. 2. Given that he is growing Melonie in the blood, the tunneled dialysis catheter should ideally be removed. This will be done hopefully in the tertiary center.
--- NOTE | 2021-02-25 12:23 | Discharge Summary ---
Date of Service February 25, 2021 Admission HPI Per Admitting Provider 70 YOM with past medical history significant for morbid obesity, COPD, Pulmonary HTN, afib, GERD, myopathy, respiratory failure requiring a tracheostomy, MRSA pneumonia. Patient went to [facility] around November for COPD exacerbation which was diagnosed as MRSA pneumonia. He subsequently went into respiratory failure and was intubated. He also ended up in oliguric renal failure. He was transferred to [facility] rehab in [place]. He now has a tunneled right subclavian dialysis catheter and a 6.0 cuffless tracheostomy with a 4.0 insert for downsizing. He also had a right upper extremity DVT and was placed on Coumadin, he had drops in his hemoglobin requiring transfusions (unclear if source was identified) and his Coumadin was stopped. He was then placed on 2.5 mg PO BID of Apixaban. On Tuesday he was transferred to [facility]. On the the patient had a duplex study performed by [facility], that showed a right leg acute occlusive DVT of the proximal femoral vein was found and the right upper extremity DVT was negative. He was sent over to the [facility] by his PCP for admission and transition of oral anticoagulation to Coumadin via heparin drip. The hospitalist team was notified for admission. Heparin drip with bolus was started in the [facility]. He was dialyzed on Tuesday prior to going to [facility]. Awaiting call back from [facility] enterprise account manager on dialysis team. He is normovolemic appearing, hemodynamically stable, and alert and appropriate. Principal Diagnosis Fungemia, Melonie albicans, septic shock Discharge Exam Constitutional + ill appearing, + obese and + lethargic; no acute distress Neck trachea midline, no thyromegaly + tracheostomy present Respiratory normal respiratory effort, lungs clear to auscultation Cardiovascular RRR, no murmur, no edema Gastrointestinal (Abdomen) normal bowel sounds, soft, nontender, no hepatosplenomegaly Musculoskeletal Head/Neck/Chest: normocephalic, head atraumatic and neck supple Extremities: extremities normal to inspection and strength 5/5 throughout Skin no rashes, warm and dry Neurologic moves all extremities, awake and + confused; no focal motor deficits Psychiatric Orientation: alert, oriented to person and oriented to place; + not oriented to time Discharge Data Allergies Allergy/AdvReac Type Severity Reaction Status Date / Time levofloxacin [From Levaquin] Allergy Unknown can't Unverified 02/18/21 10:22 breath/swelling Consultations 02/18/21 13:15 ED Decision to Admit Stat 02/18/21 16:04 Consult Nephrology Routine 02/19/21 09:00 Consult Health Information Management Stat 02/21/21 16:31 Consult Shipping Support Stat 02/23/21 11:56 Consult Infectious Diseases Routine 02/24/21 08:28 Consult Ophthalmology Routine 02/25/21 08:23 Consult Gastroenterology Routine Ordered Studies 02/18/21 13:08 US venous doppler LE BI Urgent 02/22/21 13:33 US point of care ultrasound Urgent 02/23/21 10:03 CT abd pelvis wo con Urgent CT head/brain wo con Urgent Hospital Course (1) Fungemia: blood cultures from admission (02/20) growing Melonie albicans/dubliniensis treatment with Caspofungin repeat cultures are clear (drawn 02/22) no growth on sputum/tracheal lavage cultures or bronchial lavage cultures ophthomology evaluated patient on 02/24, no evidence of endopthalmitis continue Caspofungin but ideally he needs a line holiday, has a tunneled HD catheter and femoral line for access we do not have vascular surgery or IR here discussed with ICU at [facility] they have accepted patient, appreciate their assistance (2) Acute on chronic respiratory failure with hypoxia and hypercapnia: less responsive, obtunded morning of 02/24 ABG with PCO2 of 100, pH of 7.0, placed on ventilatory support via tracheostomy repeat ABG on 02/25 with PCO2 down to 54 and pH up to 7.4 keep on assist control today, PEEP is only 5,FiO2 is only 35%, saturations 94% suctioning of tracheostomy for comfort but no respiratory distress keeping on ventilatory assistance with anticipation of transport, want to maintain stability could likely come off support once he is transferred (3) Heme positive stool: heme positive on 02/24 Hb dropping down to 7.1 this morning, blood pressure stable off of pressors INR is supratherapeutic at 9, Vitamin K 10mg IV given this morning (02/25) he had a small tarry stool last night, had a brown stool this morning, loose due tube feeds plan to transfuse one unit PRBC this morning, repeat H/H later today repeat INR is 1.8 at noon (4) DVT (deep venous thrombosis): Admitted initially for RLE DVT and then developed sepsis after admission With a history of right upper extremity DVT during recent prolonged hospitalization he was on Eliquis 2.5mg BID, probably not ideal given ESRD and morbid obesity found to have right leg DVT on venous doppler at rehab facility, sent to [facility] for this reason treated with heparin drip and Coumadin now INR is 9.0, reversed with Vitamin K this morning, down to 1.8 might benefit from IVC filter, we do not have vascular surgery or IR at this time (5) Acute metabolic encephalopathy: became altered and with fever, sepsis developing after return from HD on 02/21, with rigors with hypoxia to 80% on 4LNC and hypotension to the 80s Transferred to ICU on 02/21 mental status got worse again with hypercapnia, improved with ventilation via tracheostomy he is mentating clearly today, appropriate responses, understands the plan for transfer to [place] (6) Hypoxia: Acute on chronic resp failure with hypoxia-sats dropped to 80% on 4LNC while spiking fever on 02/[address] since Nov 2020 but is capped and uses at night for JORDAN? Also on 4LNC prior to recent ICU stay for MRSA PNA he was oxygenating well but placed back on ventilatory support for hypercapnia saturations are 95% on FiO2 of 35% and PEEP of 5 with assist control could likely be taken off support but with plans for transfer will keep in place to remain stable until he gets to [place] (7) Sepsis: septic shock required Vasopressin and Levophed treating with Caspofungin, Vanco, Zosyn now pressors are off Caspofungin and Zosyn, Vanco can be stopped (8) Weakness: Chronic following prolonged ICU admission in X2 months. Likely with Critical illness myopathy - PT/OT consults placed - Continue nutritional support for muscle building - rehab and muscle strengthening (9) ESRD (end stage renal disease) on dialysis: Started on hemodialysis during recent prolonged hospitalization in November 2020 Is on a Tuesday schedule had HD on Friday 02/23 with no UF done due to low blood pressures had HD on Saturday 02/24 with 1.5 liters of UF, HD done for 3.5 hours now he needs a line holiday, has a tunneled HD catheter on the right INR is 9, no vascular surgery or IR here to intervene will reach out to tertiary care (10) Anemia: hemoglobin drifting down slowly, INR is 9 Hb 7.1, will transfuse one unit PRBC today, up to 7.3 at 1400 after one unit (11) COPD (chronic obstructive pulmonary disease): Continue home Combivent nebs/inhalers, no acute issues - On 4 LNC chronically prior to admission - Goal 88-92% spo2 -With tracheostomy in place, continue trach care on ventilatory support for transport (12) JORDAN treated with BiPAP: Settings unable to verify- obese, tracheostomy, - titrate with respiratory therapy support - Auto-pap may support while in house if unable to dial in settings definitely needs to be on BIPAP settings at night via trach he developed hypercapnia on 02/24 in the morning with PCO2 of 100 (13) Afib: on Amiodarone Patient was unaware of this diagnosis, but did previously follow with a hand paint mixer prior to his hospitalization-Dr. 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, continue PPI -will need surveillance EGDs in the future (17) Critical illness myopathy: Very weak from 2 month ICU/LTACH stay continue daily PT/OT stood at bedside on 02/20 with PT eventually back to rehab but might need to go to LTACH again after this hospitalization very complex patient even at baseline (18) Morbid obesity: BMI 41.6 Needs weight loss Disposition- plan for transfer to [place] Total Time Total Time Spent Total Time Spent (In Minutes): 65 minutes Total Time Includes: Examination of the Patient, Discharge Planning, Medication Reconciliation and Communication With Other Providers Discharge Plan Discharge Items Reason For Visit: DVT Follow-up/Referrals: [facility] [Primary Care Provider] - Medications and DC Order Prescriptions: No Action docusate sodium 50 mg/5 mL Liquid 100 mg feeding tube BID RF: 0 ipratropium-albuterol 0.5 mg-3 mg(2.5 mg base)/3 mL Solution For Nebulization 3 ml INHALATION Q6H PRN (Reason: Shortness Of Breath) RF: 0 atorvastatin [Lipitor] 10 mg Tablet 10 mg feeding tube HS RF: 0 hydrocodone-acetaminophen 5-325 mg Tablet 1 tab feeding tube BID PRN (Reason: pain 4-10) RF: 0 Multiple Vitamins Tablet,Chewable 1 tab feeding tube DAILY RF: 0 aspirin 81 mg Tablet,Chewable 81 mg feeding tube DAILY RF: 0 heparin (porcine) 5,000 unit/mL Solution 5,000 unit SUBCUT Q12H RF: 0 amiodarone 100 mg Tablet 100 mg feeding tube Q12H RF: 0 cholecalciferol (vitamin D3) [Vitamin D3] 25 mcg (1,000 unit) Tablet 50 mcg feeding tube DAILY RF: 0 diclofenac sodium 1 % Gel 2 g TOPICAL TID RF: 0 Prilosec 2.5 mg Susp,Delayed Release For Recon 40 mg feeding tube BID RF: 0 sevelamer carbonate 0.8 gram Powder In Packet 2.4 g feeding tube TIDM RF: 0 apixaban 2.5 mg Tablet 2.5 mg PO BID RF: 0 Combivent Respimat 20-100 mcg/actuation Mist 1 puff INHALATION QID RF: 0 Admission Data Admit Date/Time: 02/18/21 13:40 Attending Provider: Sadi Ruiz Admit Provider: Joseph Palmer Primary Care Provider: Ajit Huynh Other Providers: Joseph Palmer ; Salo Shaw ; Lee Ann Abdalla ; Humza Rebolledo ; Dmitri Pyle ; Zeke Escobedo I. ; Abhishek Valdovinos II ; Christy Wilkerson ; Glenn Vang ; Dov Maciel ; Velasquez Montaño Coding Level of Care Code D/C Day Management >30 mins Diagnoses Fungemia B49 Acute on chronic respiratory failure with hypoxia and hypercapnia J96.21; J96.22 Heme positive stool R19.5 DVT (deep venous thrombosis) I82.621 Affected thrombotic vein of extremity: unspecified vein of extremity Chronicity: acute DVT location: upper extremity Laterality: right Acute metabolic encephalopathy G93.41 Hypoxia R09.02 Sepsis A41.9 Weakness R53.1 ESRD (end stage renal disease) on dialysis N18.6; Z99.2 Anemia D64.9 COPD (chronic obstructive pulmonary disease) J44.9 COPD type: unspecified COPD JORDAN treated with BiPAP G47.33 Afib I48.0 Atrial fibrillation type: paroxysmal Chronic respiratory failure with hypoxia J96.11 Neuropathy G62.9 Ryan esophagus K22.70 Critical illness myopathy G72.81 Morbid obesity E66.01
[2021-02-25 12:36] LABS: INR 1.8 (0.9-1.1); Prothrombin Time 17.2 Seconds (9.0-12.0)
[2021-02-25 14:15] LABS: Basophils # (auto) 0.03 K/uL (0-0.2); Basophils % (auto) 0.3 %; Eosinophils # (auto) 0.34 K/uL (0-0.5); Eosinophils % (auto) 3.1 %; Hematocrit (blood only) 24.5 % (42-52); Hemoglobin 7.3 g/dL (14.0-18.0); Immature Granulocytes % (auto) 0.9 %; Lymphocytes # (auto) 2.43 K/uL (1.2-3.4); Lymphocytes % (auto) 22.2 %; Mean Corpuscular Hemoglobin 27.1 pg (25-34); Mean Corpuscular Volume 91.1 fL (80-100); Mean Platelet Volume 8.3 fL (7.4-10.4); Monocytes # (auto) 0.91 K/uL (0.11-0.59); Monocytes % (auto) 8.3 %; Neutrophils # (auto) 7.16 K/uL (1.4-6.5); Neutrophils % (auto) 65.2 %; Nucleated RBC # (auto) 0.18 K/uL (0-0); Nucleated RBC % (auto) 1.6 %; Platelet Count 252 K/uL (130-400); RDW Coefficient of Variation 17.9 % (11.5-14.5); RDW Standard Deviation 59.2 fL (36.4-46.3); Red Blood Count 2.69 M/uL (4.7-6.1); White Blood Count 10.97 K/uL (4.8-10.8)
[2021-02-25 14:24] LABS: Mean Corpuscular Hgb Conc 29.8 g/dL (32-36)
--- NOTE | 2021-02-25 14:40 | Electrocardiogram Report ---
Test Reason : Blood Pressure : / mmHG Vent. Rate : 078 BPM Atrial Rate : 078 BPM P-R Int : 186 ms QRS Dur : 092 ms QT Int : 280 ms P-R-T Axes : 073 001 -13 degrees QTc Int : 319 ms Poor data quality, interpretation may be adversely affected Sinus rhythm with Premature atrial complexes Low voltage QRS Nonspecific ST and T wave abnormality Abnormal ECG When compared with ECG of 18-FEB-2021 11:26, Premature atrial complexes are now Present ST now depressed in Inferior leads Nonspecific T wave abnormality, worse in Inferior leads Nonspecific T wave abnormality, worse in Anterolateral leads QT has shortened Confirmed by Uri Arrieta ([id number]) on 02/25/2021 2:39:28 PM Referred By: [facility] Confirmed By:Uri Arrieta
[2021-02-25 15:08] LABS: Polychromasia 1+
[2021-02-25] MEDS: ATORVASTATIN 10 MG TAB PO SCH (20:32)
[2021-02-26] MEDS: fentaNYL citrate 100 MCG/2 ML VIAL IV PRN (00:29)
[2021-02-26] MEDS ORDERED: MIDAZOLAM HCL 5 MG/ML VIAL IV STA (01:12)
== END 2021-02-26 01:32 | disposition short-term general hospital (02) | DRG 871 ==
LOC: ED 09:54 → SUATTDRO 13:40 → 2W 13:40 → 1E 02-21 13:36